=== PATIENT | female | born 1955 | race Hispanic/Latino ===

== ENCOUNTER 2019-12-03 16:49 | Inpatient (IN) | payer BC, OTHER ==
[~2019-12-03] VITALS: Ht 152.4 cm; Wt 102.1 kg
[~2019-12-03 16:49] MED LIST: ALPRAZOLAM0.5 M1 PO; DULERA IH; DYMISTA NASAL S23 GM; LEVOCETIRIZINE D5 MG PO; LEVOTHYROXINE50 MCG PO; MONTELUKAST SOD10 MG PO; NEXIUM40 MG PO; SPIRIVA INH; ULTRAM50 MG PO
[2019-12-03] MEDS ORDERED: SODIUM CHLORIDE 0.9% 1000ML 1,000 ML IV STA (17:07)
[2019-12-03 18:31] LABS: BASOPHILS % 0.2 % (0.0-1.0); HEMATOCRIT 42.4 % (34.2-44.1); HEMOGLOBIN 12.7 g/dL (12.0-16.0); LYMPHOCYTES # (AUTO) 1.6 (1.0-3.2); LYMPHOCYTES % 24.1 % (18.0-39.1); MEAN CORPUSCULAR HEMOGLOBIN 28.7 pg (28-32); MEAN CORPUSCULAR VOLUME 95.9 fL (81-99); MONOCYTES # (AUTO) 0.7 (0.2-0.8); MONOCYTES % 10.5 % (4.4-11.3); NEUTROPHILS # (AUTO) 4.3 (2.1-6.9); NEUTROPHILS % 64.7 % (38.7-80.0); PLATELET COUNT 200 x10e3/uL (140-360); RED BLOOD COUNT 4.42 x10e6/uL (3.6-5.1); RED CELL DISTRIBUTION WIDTH 14.3 % (11.7-14.4)
[2019-12-03 18:52] LABS: ALBUMIN/GLOBULIN RATIO 0.8 (0.8-2.0); ANION GAP 12.4 mmol/L (8-16); CALCIUM 8.4 mg/dL (8.4-10.2); CREATININE, SERUM 1.1 mg/dL (0.57-1.11); POTASSIUM 4.4 mmol/L (3.5-5.1)
[2019-12-03 19:00] LABS: CREATINE KINASE MB 0.6 ng/mL (0-5.0)
[2019-12-03 19:02] LABS: B-TYPE NATRIURETIC PEPTIDE2 39.7 pg/mL (0-100)
--- NOTE | 2019-12-03 19:11 | NUR ---
report given to Gigi BILL
--- NOTE | 2019-12-03 19:13 | Diagnostic Imaging Report ---
EXAMINATION: CHEST SINGLE (PORTABLE) INDICATION: FEVER, COUGH COMPARISON: None FINDINGS: TUBES and LINES: None. LUNGS: Mild prominence of the pulmonary vasculature bilaterally with redistribution. There is patchy airspace disease predominantly in a perihilar distribution and basilar, right greater the left. PLEURA: No pleural effusion or pneumothorax. HEART AND MEDIASTINUM: Cardiac size is moderately enlarged. There are atherosclerotic calcifications within the aorta. BONES AND SOFT TISSUES: No acute osseous lesion. Soft tissues are unremarkable. UPPER ABDOMEN: No free air under the diaphragm. IMPRESSION: Findings suggestive of decompensated CHF with bilateral superimposed infection in this patient's clinical setting. Signed by: Dr. Javi Bhagat M.D. on 12/03/2019 7:09 PM
--- NOTE | 2019-12-03 19:42 | Emergency Department Note ---
History of Present Illnes History of Present Illness Chief Complaint: COVID PUI History of Present Illness This is a 64 year old female SOB, CONFIRMED COVID. FROM CLINIC. AAOX4. AMBULATORY. 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 Arrival Mode: [facility] EMS Treatment PREPRESS TECHNICIAN: See EMS Report Additional Treatment PREPRESS TECHNICIAN: [facility] M29 Cook Vacuum Kettle Required: No Onset (how long ago): day(s) (4) Radiation: Reports non-radiation Severity: moderate Onset quality: gradual Timing of current episode: constant Progression: worsening Chronicity: new Relieving factors: none Exacerbating factors: none Associated symptoms: Reports confusion, Reports fever/chills, Reports malaise, Reports shortness of breath, Reports weakness Treatments prior to arrival: none Past Medical/Family History Physician Review I have reviewed the patient's past medical and family history. Any updates have been documented here. Past Medical History Recent Fever: No Clinical Suspicion of Infectio: No New/Unexplained Change in Ment: No Past Medical History: Hypertension, Hypothyroidism, GERD, Hyperlipedemia Other Medical History: anxiety Other Surgery: unknown history Social History Smoking Cessation: Never Smoker Counseling Performed: No Any Illegal Drug Use: No TB Exposure/Symptoms: No Physically hurt or threatened: No Family History Family history of heart diseas: No Other Any Pre-Existing Lines (PICC,: No Review of Systems Review of Systems Constitutional: Reports as per HPI EENTM: Reports no symptoms Cardiovascular: Reports no symptoms Respiratory: Reports as per HPI Gastrointestinal: Reports no symptoms Genitourinary: Reports no symptoms Musculoskeletal: Reports no symptoms Integumentary: Reports no symptoms Neurological: Reports as per HPI Psychological: Reports no symptoms Endocrine: Reports no symptoms Hematological/Lymphatic: Reports no symptoms Physical Exam Related Data Allergies: Coded Allergies: No Known Allergies (Unverified , 04/05/15) Triage Vital Signs Vital Signs Date Time Temp Pulse Resp B/P (MAP) Pulse Ox O2 Delivery O2 Flow Rate FiO2 12/03/19 17:08 98.7 102 24 98 Non-Rebreather 15.0 Vital signs reviewed: Yes Physical Exam CONSTITUTIONAL Constitutional: Present ill appearing HENT HENT: Present normocephalic, Present atraumatic, Present oropharynx clear/moist, Present nose normal HENT L/R: Present left ext ear normal, Present right ext ear normal EYES Eyes: Reports PERRL, Reports conjunctivae normal NECK Neck: Present ROM normal PULMONARY Pulmonary: Present other (DECR BS'S THROUGHOUT) CARDIOVASCULAR Cardiovascular: Present regular rhythm, Present heart sounds normal, Present capillary refill normal, Present normal rate GASTROINTESTINAL Abdominal: Present soft, Present nontender, Present bowel sounds normal GENITOURINARY Genitourinary: Present exam deferred SKIN Skin: Present warm, Present dry MUSCULOSKELETAL Musculoskeletal: Present ROM normal NEUROLOGICAL Neurological: Present alert, Present no gross motor or sensory deficits, Present other (ORIENTED TO NAME ONLY) PSYCHOLOGICAL Psychological: Present mood/affect normal, Present judgement normal Results Laboratory Result Diagram: 12/03/19180912/03/191809 Laboratory Laboratory Tests Test 12/03/19 18:10 White Blood Count 6.65 x10e3/uL (4.8-10.8) Red Blood Count 4.42 x10e6/uL (3.6-5.1) Hemoglobin 12.7 g/dL (12.0-16.0) Hematocrit 42.4 % (34.2-44.1) Mean Corpuscular Volume 95.9 fL (81-99) Mean Corpuscular Hemoglobin 28.7 pg (28-32) Mean Corpuscular Hemoglobin Concent 30.0 g/dL (31-35) Red Cell Distribution Width 14.3 % (11.7-14.4) Platelet Count 200 x10e3/uL (140-360) Neutrophils (%) (Auto) 64.7 % (38.7-80.0) Lymphocytes (%) (Auto) 24.1 % (18.0-39.1) Monocytes (%) (Auto) 10.5 % (4.4-11.3) Eosinophils (%) (Auto) 0.0 % (0.0-6.0) Basophils (%) (Auto) 0.2 % (0.0-1.0) Neutrophils # (Auto) 4.3 (2.1-6.9) Lymphocytes # (Auto) 1.6 (1.0-3.2) Monocytes # (Auto) 0.7 (0.2-0.8) Eosinophils # (Auto) 0.0 (0.0-0.4) Basophils # (Auto) 0.0 (0.0-0.1) Absolute Immature Granulocyte (auto 0.03 x10e3/uL (0-0.1) Sodium Level 137 mmol/L (136-145) Potassium Level 4.4 mmol/L (3.5-5.1) Chloride Level 99 mmol/L (98-107) Carbon Dioxide Level 30 mmol/L (22-29) Anion Gap 12.4 mmol/L (8-16) Blood Urea Nitrogen 12 mg/dL (7-26) Creatinine 1.10 mg/dL (0.57-1.11) Estimat Glomerular Filtration Rate 50 ML/MIN (60-) BUN/Creatinine Ratio 11 (6-25) Glucose Level 90 mg/dL (74-118) Lactic Acid Level 0.7 mmol/L (0.5-2.0) Calcium Level 8.4 mg/dL (8.4-10.2) Total Bilirubin 0.2 mg/dL (0.2-1.2) Aspartate Amino Transf (AST/SGOT) 32 IU/L (5-34) Alanine Aminotransferase (ALT/SGPT) 22 IU/L (0-55) Alkaline Phosphatase 68 IU/L (40-150) Creatine Kinase 90 IU/L (29-168) Creatine Kinase MB 0.60 ng/mL (0-5.0) Troponin I 0.017 ng/mL (0-0.300) B-Type Natriuretic Peptide 39.7 pg/mL (0-100) Total Protein 6.6 g/dL (6.5-8.1) Albumin 3.0 g/dL (3.5-5.0) Globulin 3.6 g/dL (2.3-3.5) Albumin/Globulin Ratio 0.8 (0.8-2.0) Lab results reviewed: Yes Imaging Imaging results reviewed: Yes Impressions Procedure: [id number] DX/CHEST SINGLE (PORTABLE) Exam Date: 12/03/19 Exam Time: 1415 REPORT STATUS: Signed EXAMINATION: CHEST SINGLE (PORTABLE) INDICATION: FEVER, COUGH COMPARISON: None FINDINGS: TUBES and LINES: None. LUNGS: Mild prominence of the pulmonary vasculature bilaterally with redistribution. There is patchy airspace disease predominantly in a perihilar distribution and basilar, right greater the left. PLEURA: No pleural effusion or pneumothorax. HEART AND MEDIASTINUM: Cardiac size is moderately enlarged. There are atherosclerotic calcifications within the aorta. BONES AND SOFT TISSUES: No acute osseous lesion. Soft tissues are unremarkable. UPPER ABDOMEN: No free air under the diaphragm. IMPRESSION: Findings suggestive of decompensated CHF with bilateral superimposed infection in this patient's clinical setting. Signed by: Dr. Javi Bhagat M.D. on 12/03/2019 7:09 PM Procedures 12 Lead ECG Interpretation ECG Interpretation : ECG: ECG 1 Cook Vacuum Kettle: Interpreted by ED physician Date: Dec 03, 2019 Time: 18:01 Rhythm: sinus rhythm Rate: normal (98) QRS axis: normal Conduction: intraventricular conduction delay ST segments normal: Yes T wave inversion: V1, V2 T waves flattening: III, aVF, V3 Clinical Impression: abnormal ECG ABG Interpretation ABG Results: ABG 1 (pH 7.29, pCO2 61, pO2 100, HCO3 29) Interpretation: respiratory acidosis (ACUTE) Assessment & Plan Medical Decision Making MDM CHECK CBC, CHEM, CARDIACS, BNP, LACTIC, COVID SWAB, CXR - EVAL PNEUMONIA, COVID19, ELECTROLYTE ABNL, CHF. PT MORE CONFUSED - WILL ALSO GET ABG Reassessment Reassessment WILL NEED INTUBATION - DR WILCOX HERE AND WILL INTUBATE, WILL NEED TRANSFER SINCE NO ICU BEDS AVAILABLE HERE - REPORT TO DR TAMMY OCHOA TO TRANSFER Assessment & Plan Final Impression: (1) Pneumonia due to COVID-19 virus (2) Respiratory failure with hypercapnia Last Vital Signs Date Time Temp Pulse Resp B/P (MAP) Pulse Ox O2 Delivery O2 Flow Rate FiO2 12/03/19 19:17 95 30 149/69 100 12/03/19 17:08 98.7 Non-Rebreather 15.0 Home Meds Reported Medications Azelastine/Fluticasone (DYMISTA NASAL SPRAY) 23 Gm [place].pump, NA PRN 04/05/15 Tramadol Hcl (ULTRAM) 50 Mg Tablet, 50 MG PO PRN PRN for PAIN, TAB 04/05/15 Montelukast Sodium (MONTELUKAST SODIUM) 10 Mg Tablet, 10 MG PO DAILY, #30 TAB 04/05/15 Esomeprazole Magnesium (NEXIUM) 40 Mg Capsule.dr, 40 MG PO DAILY PROTONIX THERAPEUTIC SUBSTITUTE FOR NEXIUM PER [facility] 04/05/15 Levocetirizine Dihydrochloride (LEVOCETIRIZINE DIHYDROCHLORIDE) 5 Mg Tablet, 5 MG PO DAILY 04/05/15 Levothyroxine Sodium (LEVOTHYROXINE SODIUM) 50 Mcg Tablet, 50 MCG PO DAILY, #30 TAB 04/05/15 Alprazolam (ALPRAZOLAM) 0.5 Mg Tab.rapdis, 0.5 MG PO HS 04/05/15 [Dulera] No Conflict Check, IH BID 04/05/15 [Spiriva] No Conflict Check, INH DAILY 04/05/15 Medications in the ED Sodium Chloride 1,000 ml @ 0 mls/hr Q0M STAT IV Last administered on 12/03/19at 18:15; Admin Dose 999 MLS/HR; Start 12/03/19 at 17:07; Stop 12/03/19 at 17:09; Status DC REKHA BROOKS MD Dec 03, 2019 19:42
[2019-12-03] MEDS ORDERED: PROPOFOL IV EMULSION 10MG/ML 100 ML ONE (20:07)
[2019-12-03] MEDS: PROPOFOL IV EMULSION 10MG/ML 100 ML IV SCH (20:12)
[2019-12-03] MEDS ORDERED: LIDOCAINE HCL 1% LOCAL INJ 20 ML VIAL ONE (20:28)
[2019-12-03] MEDS ORDERED: CEFTRIAXONE SOD 1 GM/NS 50 ML 50 ML IV SCH (20:30)
[2019-12-03] MEDS ORDERED: SODIUM CHLORIDE 0.9% 1000ML 1,000 ML IV ONE (20:30)
[2019-12-03 20:31] LABS: INR 0.95; PARTIAL THROMBOPLASTIN TIME 33.6 seconds (23.8-35.5); PROTHROMBIN TIME 10.5 seconds (11.9-14.5)
--- NOTE | 2019-12-03 20:42 | Diagnostic Imaging Report ---
EXAMINATION: CHEST SINGLE (PORTABLE) INDICATION: s/p intubation. COVID. COMPARISON: 12/03/2019 at 1827 hours. FINDINGS: TUBES and LINES: Interval placement of an endotracheal tube with distal tip within the right mainstem bronchus. Recommend withdrawing approximately 4 cm. LUNGS: Redemonstration of patchy airspace disease predominantly in a perihilar distribution and basilar, right greater the left which appears somewhat increased in the short interval, possibly due to technical. PLEURA: No pleural effusion or pneumothorax. HEART AND MEDIASTINUM: Cardiac size is moderately enlarged. There are atherosclerotic calcifications within the aorta. BONES AND SOFT TISSUES: No acute osseous lesion. Soft tissues are unremarkable. UPPER ABDOMEN: No free air under the diaphragm. IMPRESSION: Interval placement of an endotracheal tube with distal tip within the right mainstem bronchus. Recommend withdrawing approximately 4 cm. Signed by: Dr. Javi Bhagat M.D. on 12/03/2019 8:39 PM
[2019-12-03] MEDS ORDERED: NOREPINEPHRINE 8 MG/D5W 250 ML 250 ML ONE (20:49)
[2019-12-03] MEDS: NOREPINEPHRINE 8 MG/D5W 250 ML 250 ML IV SCH ×2 (20:50→21:44)
[2019-12-03] MEDS ORDERED: MIDAZOLAM HCL 2 MG/2 ML VIAL ONE (20:58)
[2019-12-03] MEDS ORDERED: DEXAMETHASONE SOD PHOS 10 MG/1 ML VIAL IV SCH (21:00)
[2019-12-03] MEDS ORDERED: AZITHROMYCIN 500MG/NS 250 ML 250 ML IV SCH (21:15)
[2019-12-03] MEDS ORDERED: SUCCINYLCHOLINE 200 MG/10 ML SYR IV STA (21:27)
[2019-12-03] MEDS ORDERED: ETOMIDATE 2 MG/ML 10 ML INJ IV STA (21:27)
[2019-12-03] MEDS ORDERED: MIDAZOLAM HCL 2 MG/2 ML VIAL IV STA ×3 (21:27→21:47)
--- NOTE | 2019-12-03 21:39 | Diagnostic Imaging Report ---
EXAMINATION: CHEST XRAY LINE PLACEMENT INDICATION: ^Y ^Left IJ CVC placement ^[id number] ^[id number] COMPARISON: Chest radiograph 12/03/2019 FINDINGS: AP view TUBES and LINES: Interval placement of a left internal jugular vein central venous catheter. The tip of the catheter projects over the left medial neck, in the expected location of the left internal jugular vein. Endotracheal tube terminates above the bethanie. LUNGS: Unchanged diffuse pulmonary airspace disease, right lung greater than left. PLEURA: No pleural effusion or pneumothorax. HEART AND MEDIASTINUM: The cardiomediastinal silhouette is unchanged. BONES AND SOFT TISSUES: No acute osseous lesion. Soft tissues are unremarkable. UPPER ABDOMEN: No free air under the diaphragm. IMPRESSION: 1. Inappropriate position of the left internal jugular vein central venous catheter. The tip of the catheter is located in the left internal jugular vein. Repositioning of the catheter is recommended. 2. Unchanged diffuse pulmonary airspace disease consistent with known viral pneumonia. Signed by: Iglesia Akhtar MD on 12/03/2019 9:36 PM
--- NOTE | 2019-12-03 21:45 | NUR ---
CONSENT FOR PICC LINE OBTAINED VIA TELEPHONE FROM PTS , DMITRI; VERIFIED WITH Peter COVARRUBIAS LVN
--- NOTE | 2019-12-03 23:20 | Consultation ---
DATE OF CONSULTATION: Pulmonary Critical Care Consultation CHIEF COMPLAINT: COVID-19, asthma, and respiratory failure. HISTORY OF PRESENT ILLNESS: The patient is a 64-year-old woman with a history of asthma. She uses Symbicort at home twice a day as well as Singulair and Nucala injections once a month. She came into the emergency department with worsening fever and dyspnea. She had cough. She also had increased confusion. Her blood gas showed respiratory acidosis with a CO2 of 60 and a pH is 7.29. She also had difficulty breathing, on 100% non-rebreather. She required intubation. PAST MEDICAL HISTORY: 1. History of asthma as noted above. 2. Hypothyroidism. 3. No known cardiac history. PAST SURGICAL HISTORY: Not obtainable. SOCIAL HISTORY: Not obtainable. FAMILY HISTORY: Not obtainable. REVIEW OF SYSTEMS: The patient had increased confusion. There was some fevers. She had cough and difficulty breathing. She did not complain of chest pain. She has no nausea or vomiting. There is no leg edema. PHYSICAL EXAMINATION: VITAL SIGNS: The patient was afebrile. Blood pressure is 150/70, saturation was in the mid 90s and 100% prior to intubation. She is now on a PRVC mode of ventilation with a tidal volume of 400 and respiratory rate of 24. HEENT: She has no facial swelling. LYMPHATIC: Normal. CARDIAC: Reveals regular rate and rhythm with normal S1 and S2. LUNGS: Auscultation of lungs reveals a prolonged expiratory phase. There is no wheezing. There are crackles at the bases. ABDOMEN: Soft and nontender. There is no rebound or guarding. EXTREMITIES: Show no leg edema or calf tenderness. There is no cyanosis or clubbing. SKIN: Shows no rashes. NEUROLOGICAL: Shows no focal abnormalities. LABORATORY DATA: BUN to creatinine ratio is 12 and 1.10. Other electrolytes are within normal limits. Albumin is 3. White blood cell count is 6.65, hemoglobin is 12.7, and platelet count is 200. RADIOGRAPHIC DATA: Chest x-ray shows findings suggestive of CHF with bilateral infiltrates and small pleural effusions. IMPRESSION: 1. Viral pneumonia and coronavirus disease 2019 infection. 2. Asthma. 3. Metabolic encephalopathy. 4. Acute kidney injury. PLAN: 1. IV antibiotics. 2. Solu-Medrol. 3. Lovenox. 4. Continue mechanical ventilation and repeat ABG. 5. Echocardiogram. 6. Bronchodilators. MD CLAUS De La O/MARTITA /[id number]
[2019-12-03 23:27] LABS: ABG HCO3 26 mmol/L (22-26); ABG PCO2 42 mmHg (35-45); ABG PH 7.41 (7.35-7.45); ABG PO2 65 mmHg (80-105)
[2019-12-03 23:32] LABS: ABG PH 7.28 (7.35-7.45)
[2019-12-03 23:33] LABS: ABG HCO3 29 mmol/L (22-26); ABG PCO2 61 mmHg (35-45); ABG PO2 100 mmHg (80-105)
--- NOTE | 2019-12-03 23:45 | Operative Report ---
DATE OF PROCEDURE: SURGEON: Patrick Wren MD PROCEDURE: Endotracheal intubation. PREPROCEDURE DIAGNOSIS: Respiratory failure. POSTPROCEDURE DIAGNOSIS: Respiratory failure. CONSENT: Consent was obtained from the patient. MEDICATIONS: Versed 1 mg, etomidate 20 mg, and succinylcholine 100 mg IV. [employer] EQUIPMENT: Patrick Wren MD. PROCEDURE IN DETAIL: The patient was placed in a supine position. A 3-0 Mac blade was used with a GlideScope to visualize glottis. A 7.5 endotracheal tube was placed through the glottis on the first attempt. There was good CO2 return and equal breath sounds bilaterally. The patient remained hemodynamically stable throughout the procedure. Oxygen saturation remained at 90%. COMPLICATIONS: None. ESTIMATED BLOOD LOSS: None. Patrick Wren MD H/MODL /[id number]
[2019-12-04] VITALS (48 sets, daily range): BP systolic 96–143; BP diastolic 52–97
--- NOTE | 2019-12-04 00:02 | Diagnostic Imaging Report ---
EXAMINATION: CHEST XRAY LINE PLACEMENT INDICATION: ^Y ^picc line placement COMPARISON: None FINDINGS: AP view TUBES and LINES: Interval placement of a right upper extremity PICC. The tip projects over the expected location of the superior vena cava. Unchanged left neck central line. Unchanged endotracheal tube. LUNGS: Unchanged diffuse pulmonary airspace disease. PLEURA: No pleural effusion or pneumothorax. HEART AND MEDIASTINUM: The cardiomediastinal silhouette is unchanged. BONES AND SOFT TISSUES: No acute osseous lesion. Soft tissues are unremarkable. UPPER ABDOMEN: No free air under the diaphragm. IMPRESSION: 1. Interval placement of a right upper extremity PICC. The tip projects over the SVC. 2. Persistent left neck central venous catheter with tip projecting over the expected location of the left internal jugular vein. Repositioning or removal is again recommended. 3. Unchanged diffuse pulmonary airspace disease consistent with viral pneumonia. Signed by: Iglesia Akhtar MD on 12/03/2019 11:59 PM
[2019-12-04] MEDS ORDERED: SODIUM CHLORIDE 0.9% 1000ML 1,000 ML ONE (01:38)
[2019-12-04] MEDS: ENOXAPARIN SOD INJ 40 MG/0.4 ML SYR SC SCH ×3 (01:45→21:15)
[2019-12-04] MEDS: PROPOFOL IV EMULSION 10MG/ML 100 ML IV SCH ×4 (01:46→14:30)
[2019-12-04] MEDS: NOREPINEPHRINE 8 MG/D5W 250 ML 250 ML IV SCH (01:47)
[2019-12-04] MEDS ORDERED: LEVOTHYROXINE SODIUM 50 MCG TAB PO SCH (06:00)
--- NOTE | 2019-12-04 07:12 | NUR ---
walking rounds with hetal bermudez
--- NOTE | 2019-12-04 07:32 | Progress Note ---
DATE: Pulmonary Critical Care Progress Note SUBJECTIVE: The patient is intubated yesterday and is now on a mechanical ventilator. She is on a PRVC at a rate of 24 with tidal volume of 400. Her FiO2 is set at 75% and PEEP is set at 15. She has a peak airway pressure 35 and a mean airway pressure of 20. Her Levophed is weaned down to 10 mcg. She is urinating. PHYSICAL EXAMINATION: VITAL SIGNS: The blood pressure is 129/75, saturation is 96%. The pulse is 72. HEENT: Shows no facial swelling or erythema. There is an oral endotracheal tube in place. The patient has a PICC line in place. CARDIAC: Reveals regular rate and rhythm with normal S1, S2. LUNGS: Auscultation of lungs reveals a prolonged expiratory phase bilaterally. There is no wheezing. ABDOMEN: Soft and nontender. There is no rebound or guarding. EXTREMITIES: Shows no leg edema or calf tenderness. There is no cyanosis or clubbing. SKIN: Shows no rashes. NEUROLOGICAL: Shows no focal abnormalities. LABORATORY DATA: White blood cell count is 6.65. The BUN to creatinine ratio is 12 to 1.1. RADIOGRAPHIC DATA: Chest x-ray shows bilateral infiltrates. IMPRESSION: 1. Acute respiratory failure. 2. COVID-19 infection and viral pneumonia. 3. Asthma with acute exacerbation. 4. Acute kidney injury. 5. Metabolic encephalopathy. PLAN: 1. Continue IV steroids and antibiotics. 2. Lovenox. 3. Repeat ABG. 4. Await echocardiogram. 5. Lovenox for DVT prophylaxis. 6. Wean Levophed. 7. Case discussed with nursing staff, Respiratory, emergency department physician, administration, and . Greater than 35 minutes in critical care time apart from any procedures performed. Patrick Wren MD LM/LIANEL /[id number]
[2019-12-04] MEDS ORDERED: PANTOPRAZOLE SOD 40 MG TABEC PO SCH (09:00)
[2019-12-04] MEDS ORDERED: MONTELUKAST SODIUM 10 MG TAB PO SCH (09:00)
[2019-12-04] MEDS ORDERED: DEXAMETHASONE PHOS 4MG/ML 5ML MULTIDOSE VIAL IV SCH (10:15)
[2019-12-04] MEDS ORDERED: ONDANSETRON HCL INJ 2MG/ML 2ML 2 MG/ML VIAL IV PRN (12:00)
[2019-12-04] MEDS ORDERED: HYDRALAZINE HCL 20 MG/ML VIAL IV PRN (12:00)
[2019-12-04 12:08] LABS: HEMATOCRIT 41.1 % (34.2-44.1); LYMPHOCYTES # (AUTO) 0.9 (1.0-3.2); LYMPHOCYTES % 18.4 % (18.0-39.1); MEAN CORPUSCULAR HEMOGLOBIN 28.9 pg (28-32); MEAN CORPUSCULAR HGB CONC 31.6 g/dL (31-35); MEAN CORPUSCULAR VOLUME 91.3 fL (81-99); MONOCYTES # (AUTO) 0.3 (0.2-0.8); MONOCYTES % 5.3 % (4.4-11.3); NEUTROPHILS # (AUTO) 3.8 (2.1-6.9); NEUTROPHILS % 75.7 % (38.7-80.0); PLATELET COUNT 214 x10e3/uL (140-360); RED CELL DISTRIBUTION WIDTH 13.8 % (11.7-14.4)
[2019-12-04 12:30] LABS: ALBUMIN 2.7 g/dL (3.5-5.0); ALBUMIN/GLOBULIN RATIO 0.8 (0.8-2.0); ANION GAP 17.8 mmol/L (8-16); CALCIUM 7.8 mg/dL (8.4-10.2); CREATININE, SERUM 1.12 mg/dL (0.57-1.11); POTASSIUM 3.8 mmol/L (3.5-5.1)
--- NOTE | 2019-12-04 14:46 | NUR ---
levophed titrated down and currentlyat 2mcg/min maintaining sbp>90
[2019-12-04] MEDS ORDERED: MIDAZOLAM HCL 2 MG/2 ML VIAL ONE ×2 (14:53→20:22)
[2019-12-04] MEDS ORDERED: WATER STERILE 10 ML VIAL ONE (14:53)
[2019-12-04] MEDS ORDERED: ETOMIDATE 2 MG/ML 10 ML INJ IV ONE ×2 (14:53→20:22)
[2019-12-04] MEDS ORDERED: VECURONIUM BROMIDE FOR INJ 20 MG VIAL ONE (14:53)
[2019-12-04] MEDS ORDERED: SUCCINYLCHOLINE CHLORIDE 20 MG/ML 10ML VIAL ONE ×2 (14:53→20:22)
[2019-12-04 15:20] LABS: CHOL/HDL RATIO 4.3 (3.0-3.6)
[2019-12-04] MEDS ORDERED: PROPOFOL IV EMULSION 10MG/ML 100 ML IV SCH (16:15)
[2019-12-04] MEDS ORDERED: NOREPINEPHRINE 8 MG/D5W 250 ML 250 ML IV SCH (16:15)
[2019-12-04] MEDS: FAMOTIDINE 20 MG/2 ML VIAL IV SCH (17:00)
[2019-12-04] MEDS ORDERED: REMDESIVIR 200MG/NS 100ML 200 MG IV ONE (18:00)
[2019-12-04 19:33] LABS: ABG HCO3 21 mmol/L (22-26); ABG PCO2 30 mmHg (35-45); ABG PH 7.46 (7.35-7.45); ABG PO2 91 mmHg (80-105)
[2019-12-04] MEDS: PROPOFOL IV EMULSION 10MG/ML 50 ML IV PRN (20:15)
[2019-12-04] MEDS ORDERED: DEXAMETHASONE SOD PHOS 10 MG/1 ML VIAL IV SCH (21:00)
--- NOTE | 2019-12-04 21:06 | Consultation ---
DATE OF CONSULTATION: Cardiology Consult. HISTORY OF PRESENT ILLNESS: A 64-year-old female with primary history of hypothyroidism, asthma, GERD, anxiety, obesity, admitted complaining of shortness of breath, found to be positive with coronavirus disease 2019 infection. Per medical records, the patient complaining of worsening dyspnea accompanied with cough and fever with some confusion. She was found to have respiratory acidosis and with acute respiratory distress requiring immediate intubation. PAST MEDICAL HISTORY: As mentioned above, hypothyroidism, asthma, GERD, anxiety, obesity. PAST SURGICAL HISTORY: Unable to obtain. The patient is intubated. SOCIAL HISTORY: Unable to obtain. FAMILY HISTORY: Unable to obtain. PHYSICAL EXAMINATION: VITAL SIGNS: Blood pressure 121/65, heart rate of 54, respiratory rate of 23, pulse oximetry 100% on mechanical ventilator. GENERAL APPEARANCE: The patient is well developed, well nourished, in no acute respiratory distress. HEENT: Head is normocephalic, atraumatic. Pupils are equally round and reactive to light and accommodation. Sclerae nonicteric. Ears are normal. Throat is clear. NECK: Supple. Full range of motion. No cervical lymphadenopathy. No thyromegaly. No JVD. SKIN: Warm and dry. No suspicious lesion. CV: Sinus bradycardia on telemetry, S1 and S2 are normal. No murmur heard on auscultation. LUNGS: Auscultation of lungs reveals prolonged expiratory phase. There is no wheezing, but there are few crackles at the bases. ABDOMEN: Soft, obese, nondistended. Bowel sounds are present. EXTREMITIES: There is no clubbing, no cyanosis, or edema. NEUROLOGIC: The patient is currently sedated. LABORATORY DATA: BUN and creatinine ratio are 12 and 1.10. Electrolytes are within normal limits. White count is 6.65, platelets 200. Lactic acid is 0.7. RADIOGRAPHIC DATA: Chest x-ray showed finding suggestive of CHF and bilateral infiltrates and some pleural effusions. IMPRESSION AND PLAN: The patient is a 64-year-old admitted with EKG and cardiac enzymes not suggestive of any ischemia. Cardiology is consulted to evaluate. 1. Monitor Coumadin and continue telemetry monitoring. 2. Echocardiogram to evaluate valve and LV function. 3. Diurese as needed and continue to evaluate and assess for any signs of significant volume overload with pulmonary and peripheral congestion. 4. Continue medical management for active viral pneumonia and coronavirus disease 2019 infection. 5. Further recommendation will follow according to the patient's clinical course. Thank you for this consultation. We will continue to follow. Dictated by Zena Sheridan, MONOGRAM TECHNICIAN MD LINDA Sanchez/MARTITA /[id number]
[2019-12-04] MEDS: DEXAMETHASONE PHOS 4MG/ML 5ML MULTIDOSE VIAL IV SCH (21:15)
[2019-12-04] MEDS: PROPOFOL IV EMULSION 10MG/ML 100 ML IV PRN (22:30)
--- NOTE | 2019-12-04 22:46 | Consultation ---
HISTORY OF PRESENT ILLNESS: Ms. Cook is a 64-year-old female, who has history of diabetes mellitus. She was sick Sunday and she was concerned because her family had tested positive for COVID, so she wanted to be tested. She was told it was negative, but Sunday started to get worse and then she came yesterday to the emergency room here at the [facility], which is about 5 days. The patient comes in with shortness of breath. Her COVID was positive. The patient is being admitted. I am asked to see her. She is currently on a ventilator. She is currently on the Intensive Care Unit, is currently intubated, sedated. I was able to discuss the case with her son, who put me on a speaker phone, discussed with her . They are aware of how sick she is and we also discussed the possibility of Remdesivir and also talked about it. I asked them to go online and look at fact statement about it, since I am really concerned to give it to her. They both agreed. The patient is currently intubated and sedated. MEDICATIONS: List reviewed. LABORATORY DATA: Reviewed. Her sodium 137, potassium 4.4. Her creatinine 1.10, glucose of 90, went up to 162. White count 6.5, hemoglobin of 4.5. PHYSICAL EXAMINATION: GENERAL: She is currently intubated and sedated. VITAL SIGNS: Stable. Heart rate 52, respirations 24, blood pressure 100/71, 100. HEENT: Not icteric. NECK: Supple. CHEST: Crackles bilateral. HEART: S1 and S2. ABDOMEN: Soft. IMPRESSION AND PLAN: 1. Sepsis, on admission. 2. Respiratory failure, on admission. 3. Coronavirus disease-2019, on admission, concerned about superimposed bacterial pneumonia. She is on respiratory support on the ventilator, from Infectious Disease point of view. Dexamethasone 6 mg IV daily for 10 days, Rocephin 1 g daily for 5 days, azithromycin 500 mg p.o. daily for 3 days, Lovenox 0.5 mg/kg 40 subcu q.12. I discussed with the family, we will start Remdesivir 200 mg IV piggyback now and then 100 daily. Discussed with the pharmacy. Discussed with Critical Care. We will follow. Zaher Shebib, MD ZS/MARTITA /[id number]
[2019-12-05] VITALS (12 sets, daily range): BP systolic 91–120; BP diastolic 37–74
[2019-12-05] MEDS: CEFTRIAXONE SOD 1 GM/NS 50 ML 50 ML IV SCH
[2019-12-05] MEDS: PROPOFOL IV EMULSION 10MG/ML 100 ML IV PRN ×4 (01:25→23:00)
[2019-12-05] MEDS: AZITHROMYCIN 500MG/NS 250 ML 250 ML IV SCH (02:45)
[2019-12-05] MEDS: LEVOTHYROXINE SODIUM 50 MCG TAB PO SCH (06:40)
[2019-12-05 07:15] LABS: HEMATOCRIT 40.4 % (34.2-44.1); LYMPHOCYTES # (AUTO) 0.8 (1.0-3.2); LYMPHOCYTES % 9.9 % (18.0-39.1); MEAN CORPUSCULAR HEMOGLOBIN 29.2 pg (28-32); MEAN CORPUSCULAR HGB CONC 32.2 g/dL (31-35); MEAN CORPUSCULAR VOLUME 90.8 fL (81-99); MONOCYTES # (AUTO) 0.5 (0.2-0.8); MONOCYTES % 6.5 % (4.4-11.3); NEUTROPHILS # (AUTO) 6.4 (2.1-6.9); NEUTROPHILS % 83.1 % (38.7-80.0); PLATELET COUNT 229 x10e3/uL (140-360); RED BLOOD COUNT 4.45 x10e6/uL (3.6-5.1); RED CELL DISTRIBUTION WIDTH 13.5 % (11.7-14.4)
[2019-12-05 07:33] LABS: ALANINE AMINOTRANSFERASE 20 IU/L (0-55); ALBUMIN 2.5 g/dL (3.5-5.0); ALBUMIN/GLOBULIN RATIO 0.7 (0.8-2.0); ALKALINE PHOSPHATASE 55 IU/L (40-150); ANION GAP 12.9 mmol/L (8-16); BLOOD UREA NITROGEN 13 mg/dL (7-26); BUN/CREATININE RATIO 15 (6-25); CALCIUM 7.9 mg/dL (8.4-10.2); CARBON DIOXIDE 24 mmol/L (22-29); CHLORIDE 109 mmol/L (98-107); CREATININE, SERUM 0.89 mg/dL (0.57-1.11); EST GLOMERULAR FILTRATION RATE > 60 ML/MIN (60-); GLUCOSE 124 mg/dL (74-118); POTASSIUM 3.9 mmol/L (3.5-5.1); SODIUM 142 mmol/L (136-145)
--- NOTE | 2019-12-05 08:53 | Progress Note ---
DATE: Pulmonary Critical Care Progress Note SUBJECTIVE: The patient was placed in the prone position last night. Now, she is in a supine position again. Her oxygenation has improved and she is down to 50% FiO2. Her PEEP is decreased to 10 and her respiratory rate is 20 with a tidal volume of 400. Her plateau pressure is 23. Her peak airway pressure is 28. She was weaned off the Levophed early this morning. She remains on propofol. PHYSICAL EXAMINATION: VITAL SIGNS: Saturation is 96% on the above settings. Her blood pressure is 118/74 and her pulse is now 66. HEENT: Shows no facial swelling or erythema. The oropharynx is normal. LYMPHATIC: Shows no submandibular, cervical, or supraclavicular adenopathy. There is a PICC line in place. CARDIAC: Reveals regular rate and rhythm with normal S1, S2. LUNGS: Auscultation of lungs reveals crackles at the bases. There is no wheezing. ABDOMEN: Soft and nontender. There is no rebound or guarding. EXTREMITIES: Shows no leg edema or calf tenderness. There is no cyanosis or clubbing. SKIN: Shows no rashes. NEUROLOGICAL: Shows no focal abnormalities. She awakes when the propofol had stopped. LABORATORY DATA: The JQR-xb-qxcospghqk ratio is 13 to 0.89. Other electrolytes are within normal limits. Albumin is 2.5. White blood cell count is 7.7 and hemoglobin is 13. The platelet count is 229. IMPRESSION: 1. Acute respiratory failure. 2. Viral pneumonia and COVID-19 infection. 3. Asthma with acute exacerbation. 4. Metabolic encephalopathy. 5. Acute kidney injury. 6. Diastolic heart failure of unclear duration. PLAN: 1. Repeat ABG and continue to wean ventilator. 2. Complete remdesivir. 3. Continue intermittent Lasix for diuresis. 4. Decadron. 5. Propofol for sedation. 6. Enteral feedings. 7. Lovenox at 40 mg subcu q.12h. 8. Case discussed with nursing staff, Respiratory, Cardiology, and Infectious Disease. Case also discussed with family. Greater than 35 minutes in direct critical care time. Patrick Wren MD LM/MARTITA /[id number]
[2019-12-05] MEDS ORDERED: FUROSEMIDE INJ 10 MG/ML 4 ML VIAL IV SCH (09:00)
[2019-12-05 11:07] LABS: ABG PCO2 36 mmHg (35-45); ABG PH 7.43 (7.35-7.45); ABG PO2 73 mmHg (80-105)
[2019-12-05 11:08] LABS: ABG HCO3 24 mmol/L (22-26)
[2019-12-05] MEDS ORDERED: PROPOFOL IV EMULSION 10MG/ML 100ML BTL ONE (12:00)
[2019-12-05] MEDS ORDERED: MONTELUKAST SODIUM 10 MG TAB ONE (13:23)
[2019-12-05] MEDS ORDERED: PANTOPRAZOLE SOD 40 MG TABEC ONE (13:23)
[2019-12-05] MEDS ORDERED: HYDRALAZINE HCL 20 MG/ML VIAL ONE (13:23)
[2019-12-05] MEDS ORDERED: FAMOTIDINE 20 MG/2 ML VIAL IV ONE (13:23)
[2019-12-05] MEDS ORDERED: ACETAMINOPHEN 325 MG TAB ONE (13:23)
[2019-12-05] MEDS ORDERED: ZINC SULFATE 220 MG CAP ONE (13:23)
[2019-12-05] MEDS ORDERED: ASCORBIC ACID 500 MG TAB ONE (13:23)
[2019-12-05] MEDS ORDERED: ENOXAPARIN SOD INJ 40 MG/0.4 ML SYR SC ONE (13:23)
[2019-12-05] MEDS ORDERED: FUROSEMIDE INJ 10 MG/ML 2 ML VIAL ONE (13:23)
[2019-12-05] MEDS ORDERED: LEVOTHYROXINE SODIUM 50 MCG TAB ONE (13:23)
[2019-12-05] MEDS: MONTELUKAST SODIUM 10 MG TAB PO SCH (13:42)
[2019-12-05] MEDS: PANTOPRAZOLE SOD 40 MG TABEC PO SCH (13:42)
[2019-12-05] MEDS: FAMOTIDINE 20 MG/2 ML VIAL IV SCH ×2 (13:42→17:00)
[2019-12-05] MEDS: FUROSEMIDE INJ 10 MG/ML 2 ML VIAL IV SCH (13:42)
[2019-12-05] MEDS: ENOXAPARIN SOD INJ 40 MG/0.4 ML SYR SC SCH ×2 (13:42→21:00)
--- NOTE | 2019-12-05 15:46 | NUR ---
PROGRESS The patient was placed in the prone position last night. Now, she is in a supine position again. Her oxygenation has improved and she is down to 50% FiO2. Her PEEP is decreased to 10 and her respiratory rate is 20 with a tidal volume of 400. Her plateau pressure is 23. Her peak airway pressure is 28. She was weaned off the Levophed early this morning. She remains on propofol. PHYSICAL EXAMINATION: VITAL SIGNS: Saturation is 96% on the above settings. Her blood pressure is 118/74 and her pulse is now 66. HEENT: Shows no facial swelling or erythema. The oropharynx is normal. LYMPHATIC: Shows no submandibular, cervical, or supraclavicular adenopathy. There is a PICC line in place. CARDIAC: Reveals regular rate and rhythm with normal S1, S2. LUNGS: Auscultation of lungs reveals crackles at the bases. There is no wheezing. ABDOMEN: Soft and nontender. There is no rebound or guarding. EXTREMITIES: Shows no leg edema or calf tenderness. There is no cyanosis or clubbing. SKIN: Shows no rashes. NEUROLOGICAL: Shows no focal abnormalities. She awakes when the propofol had stopped. LABORATORY DATA: The RRR-tk-egfnwfejbq ratio is 13 to 0.89. Other electrolytes are within normal limits. Albumin is 2.5. White blood cell count is 7.7 and hemoglobin is 13. The platelet count is 229. IMPRESSION: 1. Acute respiratory failure. 2. Viral pneumonia and COVID-19 infection. 3. Asthma with acute exacerbation. 4. Metabolic encephalopathy. 5. Acute kidney injury. 6. Diastolic heart failure of unclear duration. continue as ordered discussed with the medical team Please refer to orders 1 lab reviewed Time spent 35 minutes in critical care
[2019-12-05] MEDS: REMDESIVIR 100MG/NS 100ML 100 MG IV SCH (16:00)
--- NOTE | 2019-12-05 16:40 | NUR ---
Nutrition Intervention Note RD Recommendation(s) for Physician: -Recommend modifying formula to Vital High Protein @ goal rate of 35 mL/hr due to propofol dose (provides 840 kcal, 74 g protein) -Pt is receiving additional 985 kcal from propofol -Fluid management per MD Plan of Care: RD following, monitoring for tolerance and adequacy, tube feed recommendation Nutrition reason for involvement: Nutrition Risk Trigger (MST 2) and enteral nutrition RD Assessment (12/05/19) Pt is a 64 year old female admitted with acute respiratory failure. Pt is COVID+ and is currently intubated. Pt currently has an order for tube feeding. Pt is receiving propofol at 37.3 mL/hr per documentation which provides 985 kcal. Unable to obtain nutrition history at this time. Recommendations provided. Will continue to monitor. Principal Problems/Diagnoses: acute respiratory failure PMH: asthma, hypothyroid I/O: GI: soft, non-tender abdomen Skin: intact Labs: (12/04) Na 142, K 3.9, BUN 13, Cr 0.89, Glu 124, Ca 7.9, AST 36 Meds: protonix, lovenox, lasix, pepcid, propofol (37.3 mL/hr), vitamin C, zinc sulfate, norepinephrine, zofran Ht: 60 inches Wt: 228 lbs BMI: 44.5 kg/m2 IBW: 100 lbs Malnutrition Evaluation (12/05/19) Unable to assess. Will re-evaluate at follow-up as appropriate. Nutrition Prescription (Diet Order): Glucerna 1.2 @ 50 mL/hr (provides 1440 kcal, 72 g protein) Estimated Nutritional Needs: 8309-4854 calories/day (22-25 kcal/kg IBW) 68-90 g protein/day (1.5-2 g pro/kg IBW) Diet Adequacy: Meeting calorie needs, Meeting protein needs with tube feed order Tolerance: Tolerance pending Diet Education Needs Assessment: Diet education not indicated, pt is intubated Nutrition Care Level: high Nutrition Diagnosis: Inadequate oral intake related to acute respiratory failure/mechanical ventilation as evidenced by pt requiring enteral nutrition Goal: Patient will meet 75-100% of estimated needs by follow up Progress: N/A Interventions: -Composition, Rate, Route, Recommended Modifications Monitoring/Evaluation: -Total energy intake, Total protein intake, Formula/Solution, Prescription medication, Weight change Signed: Corinna Aviles RD, LD
[2019-12-05] MEDS: DEXAMETHASONE PHOS 4MG/ML 5ML MULTIDOSE VIAL IV SCH (21:00)
[2019-12-06] VITALS (11 sets, daily range): BP systolic 76–107; BP diastolic 43–67
[2019-12-06] MEDS: CEFTRIAXONE SOD 1 GM/NS 50 ML 50 ML IV SCH (00:30)
[2019-12-06] MEDS: AZITHROMYCIN 500MG/NS 250 ML 250 ML IV SCH (02:00)
[2019-12-06] MEDS: PROPOFOL IV EMULSION 10MG/ML 100 ML IV PRN (05:55)
[2019-12-06] MEDS: LEVOTHYROXINE SODIUM 50 MCG TAB PO SCH (06:05)
[2019-12-06 06:16] LABS: HEMATOCRIT 39.4 % (34.2-44.1); HEMOGLOBIN 12.7 g/dL (12.0-16.0); MEAN CORPUSCULAR VOLUME 89.1 fL (81-99); RED BLOOD COUNT 4.42 x10e6/uL (3.6-5.1)
[2019-12-06 06:17] LABS: BASOPHILS % 0.2 % (0.0-1.0); LYMPHOCYTES # (AUTO) 0.6 (1.0-3.2); LYMPHOCYTES % 8.5 % (18.0-39.1); MEAN CORPUSCULAR HEMOGLOBIN 28.7 pg (28-32); MEAN CORPUSCULAR HGB CONC 32.2 g/dL (31-35); MONOCYTES # (AUTO) 0.6 (0.2-0.8); MONOCYTES % 9.4 % (4.4-11.3); NEUTROPHILS # (AUTO) 5.3 (2.1-6.9); NEUTROPHILS % 81.1 % (38.7-80.0); PLATELET COUNT 244 x10e3/uL (140-360); RED CELL DISTRIBUTION WIDTH 13.7 % (11.7-14.4)
[2019-12-06 06:51] LABS: ALANINE AMINOTRANSFERASE 17 IU/L (0-55); ALBUMIN 2.4 g/dL (3.5-5.0); ALBUMIN/GLOBULIN RATIO 0.6 (0.8-2.0); ALKALINE PHOSPHATASE 54 IU/L (40-150); ANION GAP 13.2 mmol/L (8-16); BLOOD UREA NITROGEN 18 mg/dL (7-26); BUN/CREATININE RATIO 20 (6-25); CALCIUM 7.7 mg/dL (8.4-10.2); CARBON DIOXIDE 26 mmol/L (22-29); CHLORIDE 107 mmol/L (98-107); CREATININE, SERUM 0.89 mg/dL (0.57-1.11); EST GLOMERULAR FILTRATION RATE > 60 ML/MIN (60-); GLUCOSE 109 mg/dL (74-118); POTASSIUM 4.2 mmol/L (3.5-5.1); SODIUM 142 mmol/L (136-145)
--- NOTE | 2019-12-06 07:06 | Diagnostic Imaging Report ---
EXAMINATION: CHEST SINGLE (PORTABLE) INDICATION: ^resp failure COMPARISON: 12/03/2019 FINDINGS: AP view TUBES and LINES: Interval removal of the previously seen left IJ central line. Unchanged endotracheal tube and right approach PICC. Interval placement of a nasogastric tube. LUNGS: Unchanged pulmonary airspace disease. PLEURA: No pleural effusion or pneumothorax. HEART AND MEDIASTINUM: Stable mild cardiomegaly. BONES AND SOFT TISSUES: No acute osseous lesion. Soft tissues are unremarkable. UPPER ABDOMEN: No free air under the diaphragm. IMPRESSION: Unchanged pulmonary airspace disease again suggestive of viral pneumonia. Signed by: Iglesia Akhtar MD on 12/06/2019 7:02 AM
[2019-12-06] MEDS: PANTOPRAZOLE SOD 40 MG TABEC PO SCH (07:30)
[2019-12-06] MEDS ORDERED: ASCORBIC ACID 500 MG TAB NG SCH (09:00)
--- NOTE | 2019-12-06 09:17 | Progress Note ---
DATE: Pulmonary Critical Care Progress Note SUBJECTIVE: The patient was placed on a pressure support of 8 and CPAP of 5 this morning. She is breathing about 25-28 times a minute with tidal volumes of 300 mL. She is awaiting repeat blood gas. She is not having fevers. She was receiving enteral feedings and they are now on hold. She is off pressors. She was on Diprivan up until early this morning and this has been held. PHYSICAL EXAMINATION: VITAL SIGNS: The blood pressure is 99/56, saturation is 96% on the above settings. Her pulse is 85 and respiratory rate is 28. HEENT: An oral endotracheal tube. There is a PICC line in place. She has a nasogastric tube. CARDIAC: Regular rate and rhythm with normal S1, S2. LUNGS: Auscultation of lungs reveals crackles at the bases. There is no wheezing. ABDOMEN: Soft, nontender. There is no rebound or guarding. EXTREMITIES: No leg edema or calf tenderness. There is no cyanosis or clubbing. NEUROLOGICAL: The patient to be arousable when the sedation is stopped. LABORATORY DATA: The BUN to creatinine ratio is 18 to 0.89. Other electrolytes are within normal limits. Albumin is 2.4. The white blood cell count is 6.5 and hemoglobin is 12.7. The platelet count is 244,000. RADIOGRAPHIC DATA: Chest x-ray shows bilateral airspace disease. IMPRESSION: 1. Acute respiratory failure. 2. Viral pneumonia and coronavirus disease-19 infection. 3. Asthma with acute exacerbation. 4. Metabolic encephalopathy. 5. Acute kidney injury. PLAN: 1. Repeat ABG and work towards extubation as tolerated. 2. Complete remdesivir. 3. Continue Decadron. 4. Bronchodilators to inhaler. 5. Continue enteral feedings. 6. Continue Lovenox. Plan discussed with Respiratory, nursing, Internal Medicine, and administration. Greater than 35 minutes in direct critical care time apart from any procedures performed. Patrick Wren MD [facility]/MODL /[id number]
[2019-12-06 09:34] LABS: ABG HCO3 29 mmol/L (22-26); ABG PCO2 37 mmHg (35-45); ABG PH 7.47 (7.35-7.45); ABG PO2 63 mmHg (80-105)
[2019-12-06] MEDS: MONTELUKAST SODIUM 10 MG TAB PO SCH (10:16)
[2019-12-06] MEDS: ENOXAPARIN SOD INJ 40 MG/0.4 ML SYR SC SCH ×2 (10:16→20:39)
[2019-12-06] MEDS: ZINC SULFATE 220 MG CAP NG SCH (10:16)
[2019-12-06] MEDS: FUROSEMIDE INJ 10 MG/ML 2 ML VIAL IV SCH (10:16)
[2019-12-06] MEDS: FAMOTIDINE 20 MG/2 ML VIAL IV SCH ×2 (10:34→19:02)
[2019-12-06] MEDS: ALBUTEROL SULFATE HFA 8GM INHALATION AEROSOL INH SCH ×2 (10:49→15:00)
[2019-12-06] MEDS: ASCORBIC ACID 500 MG TAB NG SCH (19:02)
[2019-12-06] MEDS: REMDESIVIR 100MG/NS 100ML 100 MG IV SCH (19:02)
[2019-12-06] MEDS: DEXAMETHASONE PHOS 4MG/ML 5ML MULTIDOSE VIAL IV SCH (20:39)
[2019-12-06] MEDS: NOREPINEPHRINE 8 MG/D5W 250 ML 250 ML IV PRN (22:30)
[2019-12-07] VITALS (18 sets, daily range): BP systolic 96–158; BP diastolic 33–87
[2019-12-07] MEDS: CEFTRIAXONE SOD 1 GM/NS 50 ML 50 ML IV SCH ×2 (00:48→23:40)
[2019-12-07] MEDS: PROPOFOL IV EMULSION 10MG/ML 50 ML IV PRN (01:24)
[2019-12-07] MEDS: AZITHROMYCIN 500MG/NS 250 ML 250 ML IV SCH (02:15)
[2019-12-07] MEDS: LEVOTHYROXINE SODIUM 50 MCG TAB PO SCH (05:04)
--- NOTE | 2019-12-07 06:03 | Diagnostic Imaging Report ---
EXAMINATION: CHEST SINGLE (PORTABLE) INDICATION: ^resp failure COMPARISON: 12/06/2019 FINDINGS: AP view TUBES and LINES: Unchanged endotracheal tube, right PICC, and nasogastric tube. LUNGS: Interval increase in patchy pulmonary airspace disease, notably in the right lung base. PLEURA: No pleural effusion or pneumothorax. HEART AND MEDIASTINUM: The cardiomediastinal silhouette is unchanged. BONES AND SOFT TISSUES: No acute osseous lesion. Soft tissues are unremarkable. UPPER ABDOMEN: No free air under the diaphragm. IMPRESSION: Interval increase in patchy pulmonary airspace disease, notably in the right lung base. Signed by: Iglesia Akhtar MD on 12/07/2019 6:00 AM
[2019-12-07 06:31] LABS: BASOPHILS % 0.1 % (0.0-1.0); HEMOGLOBIN 13.2 g/dL (12.0-16.0); LYMPHOCYTES % 12.7 % (18.0-39.1); MEAN CORPUSCULAR HEMOGLOBIN 28.9 pg (28-32); MEAN CORPUSCULAR HGB CONC 31.4 g/dL (31-35); MEAN CORPUSCULAR VOLUME 91.9 fL (81-99); MONOCYTES # (AUTO) 0.9 (0.2-0.8); PLATELET COUNT 294 x10e3/uL (140-360); RED BLOOD COUNT 4.57 x10e6/uL (3.6-5.1)
[2019-12-07] MEDS: ALBUTEROL SULFATE HFA 8GM INHALATION AEROSOL INH SCH ×5 (07:00→23:00)
[2019-12-07 07:06] LABS: ALANINE AMINOTRANSFERASE 23 IU/L (0-55); ALBUMIN 2.6 g/dL (3.5-5.0); ALBUMIN/GLOBULIN RATIO 0.7 (0.8-2.0); ALKALINE PHOSPHATASE 60 IU/L (40-150); ANION GAP 14.1 mmol/L (8-16); CALCIUM 7.8 mg/dL (8.4-10.2); CARBON DIOXIDE 27 mmol/L (22-29); CHLORIDE 107 mmol/L (98-107); CREATININE, SERUM 0.83 mg/dL (0.57-1.11); EST GLOMERULAR FILTRATION RATE > 60 ML/MIN (60-); GLUCOSE 155 mg/dL (74-118); POTASSIUM 4.1 mmol/L (3.5-5.1); SODIUM 144 mmol/L (136-145)
[2019-12-07 07:19] LABS: BLOOD UREA NITROGEN 25 mg/dL (7-26); BUN/CREATININE RATIO 30 (6-25)
[2019-12-07] MEDS: PANTOPRAZOLE SOD 40 MG TABEC PO SCH (07:30)
[2019-12-07 09:59] LABS: ABG PH 7.41 (7.35-7.45)
[2019-12-07 10:00] LABS: ABG HCO3 28 mmol/L (22-26); ABG PCO2 44 mmHg (35-45); ABG PO2 57 mmHg (80-105)
[2019-12-07] MEDS: MONTELUKAST SODIUM 10 MG TAB PO SCH (10:30)
[2019-12-07] MEDS: FUROSEMIDE INJ 10 MG/ML 2 ML VIAL IV SCH (10:30)
[2019-12-07] MEDS: ASCORBIC ACID 500 MG TAB NG SCH ×2 (10:30→18:24)
[2019-12-07] MEDS: ENOXAPARIN SOD INJ 40 MG/0.4 ML SYR SC SCH ×2 (10:30→20:24)
[2019-12-07] MEDS: FAMOTIDINE 20 MG/2 ML VIAL IV SCH ×2 (10:30→18:24)
[2019-12-07] MEDS: ZINC SULFATE 220 MG CAP NG SCH (10:30)
--- NOTE | 2019-12-07 10:56 | Progress Note ---
DATE: Pulmonary Critical Care Progress Note. SUBJECTIVE: The patient is currently on PRVC mode of ventilation. Attempted a spontaneous breathing trial this morning with the patient became tachypneic. She had to be switched back to PRVC. The patient remains on Diprivan for sedation. PHYSICAL EXAMINATION: VITAL SIGNS: Blood pressure is 97/42 with a heart rate of 55. Saturation is now 100% on a PRVC with a sed rate of 18 and tidal volume of 400. The PEEP is set at 8 and the FiO2 is set at 50%. HEENT: Shows no facial swelling or erythema. There is an oral endotracheal tube in place. She has a PICC line in place. CARDIAC: Reveals regular rate and rhythm with normal S1, S2. LUNGS: Auscultation of lungs reveals rhonchorous breath sounds bilaterally. There is no wheezing. ABDOMEN: Soft and nontender. There is no rebound or guarding. EXTREMITIES: Shows no leg edema or calf tenderness. There is no cyanosis or clubbing. SKIN: Shows no rashes. NEUROLOGICAL: Shows the patient to be sedated. She is arousable and awake when the sedation is held. LABORATORY DATA: White blood cell count is 8.06 and hemoglobin is 13.2. The platelet count is 294. BUN to creatinine ratio is 25 to 0.83. Albumin is 2.6. RADIOGRAPHIC DATA: Shows interval increase in patchy pulmonary airspace disease. IMPRESSION: 1. Acute respiratory failure. 2. Viral pneumonia and COVID-19 infection. 3. Asthma with acute exacerbation. 4. Metabolic encephalopathy. 5. Acute kidney injury. PLAN: 1. Repeat ABG and wean as tolerated. 2. Complete Decadron. 3. Complete remdesivir. 4. Continue enteral feedings. 5. Continue Lovenox. 6. Continue bronchodilators. 7. Case discussed with Respiratory, nursing staff, Nephrology, Infectious Disease, and family. Greater than 35 minutes in direct critical care time. Patrick Wren MD [facility]/MODL /[id number]
[2019-12-07] MEDS: PROPOFOL IV EMULSION 10MG/ML 100 ML IV PRN ×2 (13:25→23:00)
[2019-12-07] MEDS: REMDESIVIR 100MG/NS 100ML 100 MG IV SCH (14:00)
[2019-12-07] MEDS: DEXAMETHASONE PHOS 4MG/ML 5ML MULTIDOSE VIAL IV SCH (20:23)
[2019-12-07] MEDS: NOREPINEPHRINE 8 MG/D5W 250 ML 250 ML IV PRN (23:00)
[2019-12-08] VITALS (28 sets, daily range): BP systolic 86–123; BP diastolic 33–74
[2019-12-08] MEDS: AZITHROMYCIN 500MG/NS 250 ML 250 ML IV SCH (02:00)
[2019-12-08] MEDS: ALBUTEROL SULFATE HFA 8GM INHALATION AEROSOL INH SCH ×6 (03:00→23:30)
--- NOTE | 2019-12-08 05:28 | Diagnostic Imaging Report ---
EXAMINATION: CHEST SINGLE (PORTABLE) INDICATION: ^resp failure COMPARISON: 12/07/2019 FINDINGS: AP view TUBES and LINES: Unchanged endotracheal tube, nasogastric tube, and right upper extremity PICC. LUNGS: Unchanged diffuse pulmonary airspace disease. PLEURA: No large pleural effusion. No pneumothorax. HEART AND MEDIASTINUM: The cardiomediastinal silhouette is unchanged. BONES AND SOFT TISSUES: No acute osseous lesion. Soft tissues are unremarkable. UPPER ABDOMEN: No free air under the diaphragm. IMPRESSION: Stable exam. Unchanged pulmonary airspace disease which may represent a combination of pneumonia and edema. Signed by: Iglesia Akhtar MD on 12/08/2019 5:25 AM
[2019-12-08 06:07] LABS: BASOPHILS % 0.2 % (0.0-1.0); EOSINOPHILS # (AUTO) 0.1 (0.0-0.4); EOSINOPHILS % 0.5 % (0.0-6.0); HEMATOCRIT 44.2 % (34.2-44.1); LYMPHOCYTES # (AUTO) 1.2 (1.0-3.2); LYMPHOCYTES % 9.5 % (18.0-39.1); MEAN CORPUSCULAR HEMOGLOBIN 28.5 pg (28-32); MEAN CORPUSCULAR HGB CONC 31.7 g/dL (31-35); MONOCYTES # (AUTO) 0.8 (0.2-0.8); MONOCYTES % 6.7 % (4.4-11.3); NEUTROPHILS # (AUTO) 10.2 (2.1-6.9); NEUTROPHILS % 81.3 % (38.7-80.0); PLATELET COUNT 355 x10e3/uL (140-360); RED BLOOD COUNT 4.91 x10e6/uL (3.6-5.1); RED CELL DISTRIBUTION WIDTH 13.9 % (11.7-14.4)
[2019-12-08] MEDS: LEVOTHYROXINE SODIUM 50 MCG TAB PO SCH (06:15)
[2019-12-08 06:35] LABS: ALANINE AMINOTRANSFERASE 28 IU/L (0-55); ALBUMIN 2.7 g/dL (3.5-5.0); ALBUMIN/GLOBULIN RATIO 0.6 (0.8-2.0); ALKALINE PHOSPHATASE 65 IU/L (40-150); ANION GAP 14.1 mmol/L (8-16); BLOOD UREA NITROGEN 21 mg/dL (7-26); BUN/CREATININE RATIO 25 (6-25); CALCIUM 8.2 mg/dL (8.4-10.2); CARBON DIOXIDE 28 mmol/L (22-29); CHLORIDE 104 mmol/L (98-107); CREATININE, SERUM 0.84 mg/dL (0.57-1.11); EST GLOMERULAR FILTRATION RATE > 60 ML/MIN (60-); GLUCOSE 164 mg/dL (74-118); POTASSIUM 4.1 mmol/L (3.5-5.1); SODIUM 142 mmol/L (136-145)
[2019-12-08] MEDS: PROPOFOL IV EMULSION 10MG/ML 100 ML IV PRN ×3 (06:49→23:00)
[2019-12-08] MEDS: FAMOTIDINE 20 MG/2 ML VIAL IV SCH (08:07)
[2019-12-08] MEDS: FUROSEMIDE INJ 10 MG/ML 2 ML VIAL IV SCH (08:07)
[2019-12-08] MEDS: ASCORBIC ACID 500 MG TAB NG SCH ×2 (08:07→17:05)
[2019-12-08] MEDS: PANTOPRAZOLE SOD 40 MG TABEC PO SCH (08:07)
[2019-12-08] MEDS: ZINC SULFATE 220 MG CAP NG SCH (08:07)
[2019-12-08] MEDS: MONTELUKAST SODIUM 10 MG TAB PO SCH (08:07)
[2019-12-08] MEDS: ENOXAPARIN SOD INJ 40 MG/0.4 ML SYR SC SCH ×2 (08:07→21:15)
--- NOTE | 2019-12-08 09:50 | Progress Note ---
DATE: Pulmonary Critical Care Progress Note SUBJECTIVE: The patient is still on low-dose Levophed at 7 mcg. She was placed on a spontaneous breathing trial this morning with a pressure support of 8 and CPAP of 5. She is breathing about 24 times a minute with tidal volumes of 300-350 mL. Her sedation has been held and she is arousable. PHYSICAL EXAMINATION: VITAL SIGNS: The blood pressure is 106/45 and pulse is 89. The saturation is 97%. HEENT: Shows no facial swelling or erythema. There is an oral endotracheal tube in place. There is a PICC line in place. CARDIAC: Reveals regular rate and rhythm with normal S1, S2. LUNGS: Auscultation of lungs reveals crackles at the bases. There is no wheezing. ABDOMEN: Soft and nontender. There is no rebound or guarding. EXTREMITIES: Shows no leg edema or calf tenderness. There is no cyanosis or clubbing. SKIN: Shows no rashes. NEUROLOGICAL: Shows no focal abnormalities. LABORATORY DATA: ZGI-mo-oicegvrshh ratio is 21 to 0.84. Other electrolytes are within normal limits. The white blood cell count is 12.5 and hemoglobin is 14. The platelet count is 355. RADIOGRAPHIC DATA: Shows bilateral airspace disease. IMPRESSION: 1. Acute respiratory failure. 2. Viral pneumonia and COVID-19 infection. 3. Asthma. 4. Acute kidney injury. PLAN: 1. Stop Lasix and give two doses of albumin. 2. Wean Levophed. 3. Continue spontaneous breathing trial and check ABG. 4. Continue Lovenox. 5. Bronchodilators as needed. 6. Case discussed with nursing staff, Respiratory, Internal Medicine, and family. Greater than 35 minutes in direct critical care time. Patrick Wren MD [facility]/LIANEL /[id number]
[2019-12-08] MEDS: ALBUMIN 25% 25GM 100ML 0.25 GM/ML BTL IV SCH ×2 (13:09→21:15)
[2019-12-08] MEDS: REMDESIVIR 100MG/NS 100ML 100 MG IV SCH (14:45)
[2019-12-08 14:49] LABS: ABG PCO2 46 mmHg (35-45); ABG PH 7.44 (7.35-7.45)
[2019-12-08 14:50] LABS: ABG HCO3 32 mmol/L (22-26); ABG PO2 53 mmHg (80-105)
[2019-12-08] MEDS: NOREPINEPHRINE 8 MG/D5W 250 ML 250 ML IV PRN (16:00)
[2019-12-08] MEDS: DEXAMETHASONE PHOS 4MG/ML 5ML MULTIDOSE VIAL IV SCH (21:15)
[2019-12-09] VITALS (24 sets, daily range): BP systolic 80–140; BP diastolic 41–90
[2019-12-09] MEDS: CEFTRIAXONE SOD 1 GM/NS 50 ML 50 ML IV SCH (00:09)
[2019-12-09] MEDS: AZITHROMYCIN 500MG/NS 250 ML 250 ML IV SCH (02:23)
[2019-12-09] MEDS: ALBUTEROL SULFATE HFA 8GM INHALATION AEROSOL INH SCH ×3 (03:25→23:30)
[2019-12-09 06:01] LABS: BASOPHILS % 0.3 % (0.0-1.0); HEMOGLOBIN 13.6 g/dL (12.0-16.0); LYMPHOCYTES % 8.8 % (18.0-39.1); MEAN CORPUSCULAR HEMOGLOBIN 28.4 pg (28-32); MEAN CORPUSCULAR HGB CONC 31.6 g/dL (31-35); MEAN CORPUSCULAR VOLUME 89.8 fL (81-99); MONOCYTES # (AUTO) 1.1 (0.2-0.8); MONOCYTES % 10.2 % (4.4-11.3); NEUTROPHILS # (AUTO) 8.4 (2.1-6.9); NEUTROPHILS % 76.5 % (38.7-80.0); PLATELET COUNT 371 x10e3/uL (140-360); RED BLOOD COUNT 4.79 x10e6/uL (3.6-5.1); RED CELL DISTRIBUTION WIDTH 13.6 % (11.7-14.4)
[2019-12-09] MEDS: LEVOTHYROXINE SODIUM 50 MCG TAB PO SCH (06:20)
[2019-12-09 06:23] LABS: ALANINE AMINOTRANSFERASE 32 IU/L (0-55); ALBUMIN 3.8 g/dL (3.5-5.0); ALBUMIN/GLOBULIN RATIO 1.1 (0.8-2.0); ALKALINE PHOSPHATASE 58 IU/L (40-150); BLOOD UREA NITROGEN 20 mg/dL (7-26); BUN/CREATININE RATIO 23 (6-25); CALCIUM 9.1 mg/dL (8.4-10.2); CARBON DIOXIDE 29 mmol/L (22-29); CHLORIDE 103 mmol/L (98-107); CREATININE, SERUM 0.88 mg/dL (0.57-1.11); EST GLOMERULAR FILTRATION RATE > 60 ML/MIN (60-); GLUCOSE 195 mg/dL (74-118); SODIUM 144 mmol/L (136-145)
[2019-12-09] MEDS: PROPOFOL IV EMULSION 10MG/ML 100 ML IV PRN (06:28)
[2019-12-09] MEDS: PANTOPRAZOLE SOD 40 MG TABEC PO SCH (07:35)
--- NOTE | 2019-12-09 08:25 | Diagnostic Imaging Report ---
EXAMINATION: CHEST SINGLE (PORTABLE) INDICATION: Respiratory failure COMPARISON: Chest radiograph 12/08/2019 FINDINGS: LINES/TUBES:Support lines and tubes unchanged. LUNGS:The lungs are moderately inflated. Persistent left greater than right lower lung airspace opacities. PLEURA:No pleural effusion or pneumothorax. MEDIASTINUM:The cardiomediastinal silhouette appears unchanged in size and shape. BONES/SOFT TISSUES:No acute osseous injury. ABDOMEN:No free air under the diaphragm. IMPRESSION: Persistent left greater than right lower lung airspace opacities consistent with known pneumonia. Signed by: Daniela Lux MD on 12/09/2019 8:21 AM
[2019-12-09] MEDS: ASCORBIC ACID 500 MG TAB NG SCH ×2 (09:00→16:26)
[2019-12-09] MEDS: ZINC SULFATE 220 MG CAP NG SCH (09:00)
[2019-12-09] MEDS: ENOXAPARIN SOD INJ 40 MG/0.4 ML SYR SC SCH ×2 (09:00→20:29)
[2019-12-09] MEDS: MONTELUKAST SODIUM 10 MG TAB PO SCH (09:00)
--- NOTE | 2019-12-09 10:51 | Progress Note ---
DATE: Pulmonary Critical Care Progress Note SUBJECTIVE: The patient was placed back on spontaneous breathing trial this morning. She is on a pressure support of 8 with a CPAP of 5 and breathing about 30 times a minute. Her tidal volumes are 300-350. Her saturations are adequate. She is not having fevers. PHYSICAL EXAMINATION: VITAL SIGNS: The patient is afebrile. The blood pressure is 118/50, saturation is 98%. The pulse is 71. HEENT: No facial swelling or erythema. CARDIAC: Regular rate and rhythm with normal S1, S2. LUNGS: Auscultation of lungs reveals crackles at the bases. There is no wheezing. ABDOMEN: Soft, nontender. There is no rebound or guarding. EXTREMITIES: No leg edema or calf tenderness. There is no cyanosis or clubbing. SKIN: No rashes. NEUROLOGICAL: No focal abnormalities. LABORATORY DATA: White blood cell count is 20 to 0.88. Other electrolytes are within normal limits. The albumin is 3.8. The white blood cell count is 10.94, hemoglobin is 13.6, and platelet count is 371. RADIOGRAPHIC DATA: Persistent infiltrates. IMPRESSION: 1. Acute respiratory failure. 2. Viral pneumonia and coronavirus disease-19 infection. 3. Asthma. 4. Acute kidney injury. PLAN: 1. Continue spontaneous breathing trial and repeat ABG. 2. Work towards extubation. 3. Continue Lovenox. 4. Bronchodilators as needed. 5. Complete dexamethasone. 6. Case discussed with nursing staff, Respiratory, Infectious Disease, and Internal Medicine. Greater than 35 minutes in direct critical care time. MD CLAUS De La O/MARTITA /[id number]
[2019-12-09] MEDS ORDERED: LIDOCAINE HCL 2% LOCAL 20 ML VIAL ONE (11:20)
[2019-12-09 14:02] LABS: ABG HCO3 30 mmol/L (22-26); ABG PCO2 42 mmHg (35-45); ABG PH 7.46 (7.35-7.45); ABG PO2 60 mmHg (80-105)
[2019-12-09] MEDS: CHOLECALCIFEROL 400 UNIT TAB PO SCH (16:26)
[2019-12-09 16:30] LABS: ABG HCO3 30 mmol/L (22-26); ABG PCO2 38 mmHg (35-45); ABG PO2 53 mmHg (80-105)
--- NOTE | 2019-12-09 19:28 | NUR ---
Sedation held and CPAP trials initiated. Dr. Annmarie Wren aware of abg results. Pt extubated at 1100 to vapotherm. Orders given for swallow evaluation and pt evaluation. Family updated on patient status.
[2019-12-09] MEDS: DEXAMETHASONE PHOS 4MG/ML 5ML MULTIDOSE VIAL IV SCH (20:29)
[2019-12-09] MEDS: ACETAMINOPHEN 325 MG TAB PO PRN (20:30)
[2019-12-10] VITALS (19 sets, daily range): BP systolic 93–138; BP diastolic 49–92
[2019-12-10] MEDS: CEFTRIAXONE SOD 1 GM/NS 50 ML 50 ML IV SCH (00:08)
[2019-12-10] MEDS: AZITHROMYCIN 500MG/NS 250 ML 250 ML IV SCH (01:19)
[2019-12-10] MEDS: ALBUTEROL SULFATE HFA 8GM INHALATION AEROSOL INH SCH ×6 (03:28→23:00)
[2019-12-10] MEDS: LEVOTHYROXINE SODIUM 50 MCG TAB PO SCH (06:19)
[2019-12-10] MEDS: ACETAMINOPHEN 325 MG TAB PO PRN (06:20)
[2019-12-10 06:24] LABS: BASOPHILS # (AUTO) 0.1 (0.0-0.1); BASOPHILS % 0.4 % (0.0-1.0); HEMATOCRIT 41.7 % (34.2-44.1); LYMPHOCYTES # (AUTO) 1.1 (1.0-3.2); LYMPHOCYTES % 7.6 % (18.0-39.1); MEAN CORPUSCULAR HEMOGLOBIN 28.3 pg (28-32); MEAN CORPUSCULAR HGB CONC 31.2 g/dL (31-35); MEAN CORPUSCULAR VOLUME 90.7 fL (81-99); MONOCYTES # (AUTO) 1.4 (0.2-0.8); MONOCYTES % 10.3 % (4.4-11.3); NEUTROPHILS % 78.2 % (38.7-80.0); PLATELET COUNT 380 x10e3/uL (140-360)
[2019-12-10 06:42] LABS: ALANINE AMINOTRANSFERASE 24 IU/L (0-55); ALBUMIN 3.2 g/dL (3.5-5.0); ALBUMIN/GLOBULIN RATIO 0.9 (0.8-2.0); ALKALINE PHOSPHATASE 56 IU/L (40-150); ANION GAP 12.4 mmol/L (8-16); BLOOD UREA NITROGEN 34 mg/dL (7-26); BUN/CREATININE RATIO 39 (6-25); CALCIUM 9.1 mg/dL (8.4-10.2); CARBON DIOXIDE 30 mmol/L (22-29); CHLORIDE 107 mmol/L (98-107); CREATININE, SERUM 0.87 mg/dL (0.57-1.11); EST GLOMERULAR FILTRATION RATE > 60 ML/MIN (60-); GLUCOSE 126 mg/dL (74-118); POTASSIUM 4.4 mmol/L (3.5-5.1); SODIUM 145 mmol/L (136-145)
--- NOTE | 2019-12-10 07:10 | NUR ---
infectious disease. Progress notes 12/10/2019 patient remains in intensive care unit he patient was placed back on spontaneous breathing trial this morning. She is on a pressure support of 8 with a CPAP of 5 and breathing about 30 times a minute. Her tidal volumes are 300-350. Her saturations are adequate. She is not having fevers. PHYSICAL EXAMINATION: VITAL SIGNS: The patient is afebrile. The blood pressure is 118/50, saturation is 98%. The pulse is 71. HEENT: No facial swelling or erythema. CARDIAC: Regular rate and rhythm with normal S1, S2. LUNGS: Auscultation of lungs reveals crackles at the bases. There is no wheezing. ABDOMEN: Soft, nontender. There is no rebound or guarding. EXTREMITIES: No leg edema or calf tenderness. There is no cyanosis or clubbing. SKIN: No rashes. NEUROLOGICAL: No focal abnormalities. LABORATORY DATA: White blood cell count is 20 to 0.88. Other electrolytes are within normal limits. The albumin is 3.8. The white blood cell count is 10.94, hemoglobin is 13.6, and platelet count is 371. RADIOGRAPHIC DATA: Persistent infiltrates. IMPRESSION: 1. Acute respiratory failure. 2. Viral pneumonia and coronavirus disease-19 infection. 3. Asthma. 4. Acute kidney injury. [id number]
--- NOTE | 2019-12-10 08:48 | Diagnostic Imaging Report ---
EXAMINATION: CHEST SINGLE (PORTABLE) INDICATION: Respiratory failure COMPARISON: Multiple prior chest radiographs, most recently of 12/09/2019 FINDINGS: LINES/TUBES:Interval extubation. Enteric tube remains in place. Right PICC line unchanged. LUNGS:The lungs are moderately inflated. Persistent multifocal bilateral patchy opacities. PLEURA:No pleural effusion or pneumothorax. MEDIASTINUM:The cardiomediastinal silhouette appears unchanged in size and shape. Atherosclerotic calcifications of the thoracic aorta. BONES/SOFT TISSUES:No acute osseous injury. ABDOMEN:No free air under the diaphragm. IMPRESSION: Interval extubation. Persistent bilateral multifocal patchy airspace opacities consistent with known pneumonia. Signed by: Daniela Lux MD on 12/10/2019 8:44 AM
[2019-12-10] MEDS: MONTELUKAST SODIUM 10 MG TAB PO SCH (09:19)
[2019-12-10] MEDS: PANTOPRAZOLE SOD 40 MG TABEC PO SCH (09:19)
[2019-12-10] MEDS: ENOXAPARIN SOD INJ 40 MG/0.4 ML SYR SC SCH ×2 (09:19→21:00)
[2019-12-10] MEDS: CHOLECALCIFEROL 400 UNIT TAB PO SCH ×2 (09:19→17:08)
[2019-12-10] MEDS: ASCORBIC ACID 500 MG TAB NG SCH ×2 (09:19→18:20)
[2019-12-10] MEDS: ZINC SULFATE 220 MG CAP NG SCH (09:19)
--- NOTE | 2019-12-10 13:46 | NUR ---
Nutrition Intervention Note RD Recommendation(s) for Physician: -If safe for po, recommend Regular diet with texture per BUSINESS RISK ANALYST -If pt unsafe for po, recommend resuming TF of Glucerna 1.2 with goal rate of 45 ml/hr (1296 kcal and 65 gm protein) -Fluid management per MD Plan of Care: RD following, monitoring for tolerance and adequacy, tube feed recommendation Nutrition reason for involvement: follow up RD Assessment 12/09: Follow up. Pt off sedation and extubated. BUSINESS RISK ANALYST evaluation for po/diet safety pending. Pt continues on Levophed. Chart reviewed. Diet and TF rec's provided. Will continue to monitor. (12/05/19) Pt is a 64 year old female admitted with acute respiratory failure. Pt is COVID+ and is currently intubated. Pt currently has an order for tube feeding. Pt is receiving propofol at 37.3 mL/hr per documentation which provides 985 kcal. Unable to obtain nutrition history at this time. Recommendations provided. Will continue to monitor. Principal Problems/Diagnoses: acute respiratory failure PMH: asthma, hypothyroid GI: LBM 12/04 x2 Skin: scaly lesions documented Labs: 12/09: Na 145, K 4.4, BUN 34, Cr 0.87, Gluc 126 (12/04) Na 142, K 3.9, BUN 13, Cr 0.89, Glu 124, Ca 7.9, AST 36 Meds: Levophed at 5 mcg/min, decadron, zofran, vitamin D3, vitamin C, zinc sulfate, protonix, synthroid, azithromycin Ht: 60 inches Wt: 228 lbs BMI: 44.5 kg/m2 IBW: 100 lbs Malnutrition Evaluation (12/05/19) Unable to assess. Will re-evaluate at follow-up as appropriate. Nutrition Prescription (Diet Order): Glucerna 1.2 @ 30 ml/hr (864 kcal and 43 gm protein) Estimated Nutritional Needs: 3299-7193 calories/day (22-25 kcal/kg IBW) 68-90 g protein/day (1.5-2 g pro/kg IBW) Diet Adequacy: Not meeting calorie needs, not meeting protein needs- per current documented TF rate Tolerance: Tolerating TF Diet Education Needs Assessment: Diet education not indicated at this time. Nutrition Care Level: mod Nutrition Diagnosis: Inadequate oral intake related to acute respiratory failure/mechanical ventilation as evidenced by pt requiring enteral nutrition Goal: Patient will meet 75-100% of estimated needs by follow up Progress: progressing Interventions: -Composition, Rate, Route, Recommended Modifications Monitoring/Evaluation: -Total energy intake, Total protein intake, Formula/Solution, Prescription medication, Weight change Signed: Torri Kimbrough RD, LD, [facility]
--- NOTE | 2019-12-10 16:31 | Progress Note ---
DATE: SUBJECTIVE: The patient is extubated yesterday. She is still on a high-flow nasal cannula at 12 L. She is off Levophed. PHYSICAL EXAMINATION: VITAL SIGNS: Blood pressure is 130/57, saturation is 94% on 12 L. HEENT: Shows no facial swelling or erythema. CARDIAC: Reveals regular rate and rhythm with normal S1, S2. LUNGS: Auscultation of lungs shows decreased breath sounds at the bases. There is no wheezing. ABDOMEN: Soft and nontender. There is no rebound or guarding. EXTREMITIES: Shows no leg edema or calf tenderness. There is no cyanosis or clubbing. SKIN: Shows no rashes. NEUROLOGICAL: Shows no focal abnormalities. LABORATORY DATA: White blood cell count is 14, hemoglobin is 13, the platelet count is 380. BUN to creatinine ratio is 34 to 0.87. Albumin is 3.2. RADIOGRAPHIC DATA: Chest x-ray shows multifocal bilateral infiltrates. IMPRESSION: 1. Acute respiratory failure. 2. Viral pneumonia and COVID-19 infection. 3. Asthma. 4. Acute kidney injury. PLAN: 1. Continue to wean oxygen. 2. Continue Lovenox. 3. Continue bronchodilators. 4. Continue dexamethasone. 5. Work towards transfer out of intensive care unit. MD CLAUS De L aO/MARTITA /[id number]
--- NOTE | 2019-12-10 17:07 | Progress Note ---
DATE: SUBJECTIVE: Ms. Cook remains in the emergency room, but currently looking better. OBJECTIVE: VITAL SIGNS: Temperature 97.1, heart rate 74, she is on 15 L high-flow. HEENT: Normal. Not icteric. NECK: Supple. CHEST: Clear. HEART: S1, S2. ABDOMEN: Soft. LABORATORY DATA: White count . Sodium 145. Creatinine of 0.87. IMPRESSION AND PLAN: Coronavirus disease-19, improving. Continue Lovenox. Discontinue azithromycin. Discontinue Rocephin. PT and OT. To finish 10 days of Decadron. Discussed with the medical team. MD ANGEL Zamorano/MARTITA /[id number]
--- NOTE | 2019-12-10 20:10 | NUR ---
Transferred to room 179 via stretcher. Pt alert and oriented to name. Right NG tube in place, connected Glucerna 1.2 @50ml/hr. Neumann 16Fr running dark abena urine. HOB 75 degrees. Denies pain at this time. Bed low and locked.
[2019-12-10] MEDS: DEXAMETHASONE PHOS 4MG/ML 6 MG in SODIUM CHLORIDE 0.9% 50ML 50 ML IV SCH (21:00)
[2019-12-10] MEDS ORDERED: SODIUM CHLORIDE 0.9% 250ML 250 ML ONE (21:11)
[2019-12-11] VITALS (8 sets, daily range): BP systolic 116–146; BP diastolic 52–78
[2019-12-11] MEDS: ALBUTEROL SULFATE HFA 8GM INHALATION AEROSOL INH SCH ×3 (03:00→23:00)
--- NOTE | 2019-12-11 04:19 | Progress Note ---
DATE: 12/10/2019 CONSULTING PHYSICIANS: 1. Swapna Carver MD. 2. Patrick Wren MD. 3. Robson Wren MD. SUBJECTIVE: The patient still complains of cough, being tired. OBJECTIVE: VITAL SIGNS: Temperature 99.9, T-max 100.4, heart rate 78, blood pressure 123/57, respirations 20, oxygen saturation 98%. GENERAL: Supine, alert. LUNGS: With few crackles in the bases. High-flow nasal cannula at 10 L/minute. HEENT: EOMI. NG tube with Glucerna 20 mL an hour. NECK: Supple. CARDIOVASCULAR: Regular rate and rhythm. No murmur. ABDOMEN: Bowel sounds positive. Soft and nontender. EXTREMITIES: No clubbing, cyanosis, or marked swelling. No signs or symptoms of DVT. NEUROLOGICAL: GCS 15. Nonfocal. LABORATORY DATA: WBC 14.01, hemoglobin 13, hematocrit 41.7, platelets 380. Sodium 145, potassium 4.4, chloride 107, CO2 of 30, anion gap 12.4, BUN 34 and creatinine 0.87, estimated GFR greater than 60, glucose 126. Hemoglobin A1c 5.8%, calcium 9.1, total bilirubin 0.4, AST 24, ALT 24, alkaline phosphatase 56. Total protein 6.6, albumin 3.2. Chest x-ray today showed interval extubation, persistent bilateral multifocal patchy airspace opacities. She underwent a bedside swallow evaluation by Speech and Language pathology today. Per Speech, she is tolerating thin liquids and ice chips okay. Unable to attempt other consistencies as the patient is less than 48 hours post extubation. ASSESSMENT/PLAN: 1. COVID-19 pneumonia, pneumonia with acute respiratory distress syndrome, status post extubation on 12/09/2019. Azithromycin and Rocephin were discontinued by Infectious Disease, status post remdesivir. Continue Lovenox and Levophed, currently infusing at 3 mcg/minute. Continue dexamethasone, vitamin C, and zinc sulfate, as well as nebs. 2. Asthma. Continue supplemental oxygen p.r.n. Transaminitis, AST 41 (44) stable, monitor. Dictated by Toribio Hutchins NP Derrick Mantilla MD [facility]/MODL /[id number]
[2019-12-11] MEDS: LEVOTHYROXINE SODIUM 50 MCG TAB PO SCH (06:00)
[2019-12-11 06:26] LABS: BASOPHILS % 0.3 % (0.0-1.0); EOSINOPHILS % 0.2 % (0.0-6.0); HEMATOCRIT 41.3 % (34.2-44.1); HEMOGLOBIN 12.8 g/dL (12.0-16.0); LYMPHOCYTES % 7.7 % (18.0-39.1); MEAN CORPUSCULAR HEMOGLOBIN 28.3 pg (28-32); MEAN CORPUSCULAR VOLUME 91.2 fL (81-99); MONOCYTES # (AUTO) 1.1 (0.2-0.8); MONOCYTES % 8.7 % (4.4-11.3); NEUTROPHILS # (AUTO) 9.7 (2.1-6.9); NEUTROPHILS % 78.4 % (38.7-80.0); PLATELET COUNT 418 x10e3/uL (140-360); RED BLOOD COUNT 4.53 x10e6/uL (3.6-5.1); RED CELL DISTRIBUTION WIDTH 14.1 % (11.7-14.4)
--- NOTE | 2019-12-11 07:00 | NUR ---
RECEIVED REPORT FROM OFF GOING NIGHT NURSE. PATIENT IN STABLE CONDITION, NO S/S OF DISTRESS NOTED. NG TUBE TO THE RIGHT FÉLIX WITH GLUCERNA INFUSING @ 50 ML/HR. PATIENT IS TOLERATING THE FEED. PICC TO THE RIGHT UPPER ARM ASYMPTOMATIC AND PATENT, TRANSPARENT DRESSING C/D/I. CHAPARRO APPLIED AND PATENT DRAINING YELLOW URINE. BED IN LOWEST POSITION AND LOCKED. CALL LIGHT WITHIN REACH.
[2019-12-11 07:02] LABS: ALANINE AMINOTRANSFERASE 27 IU/L (0-55); ALBUMIN 3.1 g/dL (3.5-5.0); ALBUMIN/GLOBULIN RATIO 0.9 (0.8-2.0); ALKALINE PHOSPHATASE 57 IU/L (40-150); ANION GAP 13.4 mmol/L (8-16); BLOOD UREA NITROGEN 38 mg/dL (7-26); BUN/CREATININE RATIO 50 (6-25); CALCIUM 8.9 mg/dL (8.4-10.2); CARBON DIOXIDE 27 mmol/L (22-29); CHLORIDE 107 mmol/L (98-107); CREATININE, SERUM 0.76 mg/dL (0.57-1.11); EST GLOMERULAR FILTRATION RATE > 60 ML/MIN (60-); GLUCOSE 138 mg/dL (74-118); POTASSIUM 4.4 mmol/L (3.5-5.1); SODIUM 143 mmol/L (136-145)
[2019-12-11 07:16] LABS: MAGNESIUM 2.4 MG/DL (1.3-2.1); PHOSPHORUS 3.4 MG/DL (2.3-4.7)
[2019-12-11] MEDS: PANTOPRAZOLE SOD 40 MG TABEC PO SCH (07:30)
[2019-12-11] MEDS: ZINC SULFATE 220 MG CAP NG SCH (09:00)
[2019-12-11] MEDS: ASCORBIC ACID 500 MG TAB NG SCH ×2 (09:00→17:28)
[2019-12-11] MEDS: CHOLECALCIFEROL 400 UNIT TAB PO SCH ×2 (09:00→17:28)
[2019-12-11] MEDS: ENOXAPARIN SOD INJ 40 MG/0.4 ML SYR SC SCH ×2 (09:00→21:00)
[2019-12-11] MEDS: MONTELUKAST SODIUM 10 MG TAB PO SCH (09:00)
--- NOTE | 2019-12-11 16:17 | NUR ---
REMOVED NG TUBE PER THE PATIENT PASSING MBS. PATIENT TOLERATED REMOVAL WELL. NO PAIN VOICED.
--- NOTE | 2019-12-11 16:21 | Diagnostic Imaging Report ---
Modified Barium Swallow: Clinical History: Aspiration Comparison: None Fluoro time in minutes: 2.1 Radiation dose: 8.3 mGy air Kerma. Number of images: Multiple Report: The patient ingested various consistencies of barium with a speech pathologist in attendance. A full report from speech pathology will follow. Impression: Fluoroscopy service provided for modified barium swallow. Signed by: Laci Melendez MD on 12/11/2019 4:18 PM
--- NOTE | 2019-12-11 17:42 | Progress Note ---
DATE: Pulmonary Critical Care Progress Note SUBJECTIVE: The patient passed her swallowing test. She is able to eat food by mouth. She stood with physical therapy. She remains on 9 L of oxygen, but she feels better and has less dyspnea and less wheezing. PHYSICAL EXAMINATION: VITAL SIGNS: The blood pressure is 142/60, saturation is 91%. She is still on 9 L of oxygen. HEENT: No facial swelling or erythema. CARDIAC: Regular rate and rhythm with normal S1, S2. LUNGS: Auscultation of lungs reveals rhonchorous breath sounds bilaterally. There is no wheezing. ABDOMEN: Soft, nontender. There is no rebound or guarding. There is no leg edema or calf tenderness. There is no cyanosis or clubbing. SKIN: No rashes. NEUROLOGICAL: No focal abnormalities. LABORATORY DATA: White blood cell count is 12.4 and hemoglobin is 12.8. The platelet count is 418. The BUN to creatinine ratio is 38 to 0.76. Other electrolytes are within normal limits. IMPRESSION: 1. Acute respiratory failure. 2. Viral pneumonia coronavirus disease-19 infection. 3. Asthma. 4. Acute kidney injury. PLAN: 1. Continue to wean oxygen. 2. Advance diet as tolerated. 3. Bronchodilators. 4. Physical therapy. 5. Complete dexamethasone. 6. Continue Lovenox. Patrick Wren MD [facility]/MODL /[id number]
--- NOTE | 2019-12-11 18:53 | NUR ---
COMPLETED SHIFT REPORT WITH ON COMING NIGHT NURSE. PATIENT STABLE, NO S/S OF DISTRESS NOTED. TELEMETRY APPLIED. HIGH FLOW OXYGEN @ 10 LPM/NC. BED IN LOWEST POSITION AND LOCKED. CALL LIGHT WITHIN REACH.
--- NOTE | 2019-12-11 19:15 | NUR ---
SHIFT REPORT RECEIVED FROM MORNING NURSE. PT ALERT AND ORIENTED TO NAME, LYING IN BED HOB 60 DEGREES. O2@10L VIA HI FLOW NC. DENIES PAIN AT THIS TIME. BED ALARM ON. BED LOW AND LOCKED.
[2019-12-11] MEDS: DEXAMETHASONE PHOS 4MG/ML 6 MG in SODIUM CHLORIDE 0.9% 50ML 50 ML IV SCH (21:00)
--- NOTE | 2019-12-11 21:47 | Progress Note ---
DATE: ADDITIONAL ATTENDING PHYSICIAN: Dr. Derrick Mantilla. SUBJECTIVE: NG tube has been removed. The patient was able to side shuffle with physical therapy today. She has been having some loose stools while on tube feeds. Denies pain, increased cough when out of bed or with movement, tired. OBJECTIVE: VITAL SIGNS: Temperature 98.1, heart rate 72, blood pressure 124/52, respirations 18, and oxygen saturation 93%. GENERAL: Supine, awake, alert. LUNGS: With few crackles in the bases. Currently oxygen at 10 L/minute via high-flow, has been decreased to 8 L/minute. HEENT: EOMI. NECK: Supple. CARDIOVASCULAR: Regular rate and rhythm. No murmur. ABDOMEN: Bowel sounds positive. No guarding. Soft, nontender. EXTREMITIES: No cyanosis or signs of DVT. NEUROLOGICAL: GCS 15. Nonfocal. LABORATORY DATA: WBC 12.42, hemoglobin 12.8, hematocrit 41.3, platelets 418. Sodium 143, potassium 4.4, chloride 107, CO2 of 27, anion gap 13.4, BUN 38, creatinine 0.76, estimated GFR greater than 60, glucose 138, calcium 8.9, phosphorus 3.4, magnesium 2.4, total bilirubin 0.5, AST 33, ALT 27, alkaline phosphatase 57, total protein 6.5, albumin 3.1. 12/02, coronavirus PCR detected. Blood cultures x2 showed no growth after 5 days. Modified barium swallow completed today per speech therapy and the patient passed. ASSESSMENT AND PLAN: 1. COVID-19 pneumonia with acute respiratory distress syndrome, status post extubation on 12/09/2019, status post remdesivir, status post azithromycin and Rocephin. No longer on Levophed drip. Continue Lovenox, dexamethasone, vitamin C, and zinc sulfate, neb treatments, Singulair. 2. Asthma. Continue supplemental oxygen p.r.n. as well as montelukast sodium. 3. Transaminitis, improved. AST 33 (24, 41). 4. Prophylaxis. Lovenox and Protonix. TIME SPENT: 35 minutes. Billing code [id number]. Dictated by Toribio Hutchins, FABIÁN Derrick Mantilla MD [facility]/MODL /[id number]
[2019-12-11] MEDS: ALPRAZOLAM 0.5 MG TAB PO SCH (22:33)
[2019-12-12] VITALS (8 sets, daily range): BP systolic 105–153; BP diastolic 48–59
[2019-12-12] MEDS: ALBUTEROL SULFATE HFA 8GM INHALATION AEROSOL INH SCH ×5 (03:38→17:31)
[2019-12-12 05:32] LABS: BASOPHILS % 0.2 % (0.0-1.0); EOSINOPHILS % 0.1 % (0.0-6.0); HEMATOCRIT 41.9 % (34.2-44.1); HEMOGLOBIN 13.2 g/dL (12.0-16.0); LYMPHOCYTES # (AUTO) 1.8 (1.0-3.2); MEAN CORPUSCULAR HEMOGLOBIN 29.7 pg (28-32); MEAN CORPUSCULAR HGB CONC 31.5 g/dL (31-35); MEAN CORPUSCULAR VOLUME 94.4 fL (81-99); MONOCYTES # (AUTO) 1.5 (0.2-0.8); MONOCYTES % 11.6 % (4.4-11.3); NEUTROPHILS # (AUTO) 9.2 (2.1-6.9); NEUTROPHILS % 70.3 % (38.7-80.0); PLATELET COUNT 363 x10e3/uL (140-360); RED BLOOD COUNT 4.44 x10e6/uL (3.6-5.1); RED CELL DISTRIBUTION WIDTH 14.6 % (11.7-14.4)
[2019-12-12] MEDS: LEVOTHYROXINE SODIUM 50 MCG TAB PO SCH (06:00)
[2019-12-12 06:02] LABS: ALANINE AMINOTRANSFERASE 34 IU/L (0-55); ALBUMIN 3.2 g/dL (3.5-5.0); ALBUMIN/GLOBULIN RATIO 0.9 (0.8-2.0); ALKALINE PHOSPHATASE 69 IU/L (40-150); ANION GAP 10.8 mmol/L (8-16); BLOOD UREA NITROGEN 41 mg/dL (7-26); BUN/CREATININE RATIO 49 (6-25); CALCIUM 8.9 mg/dL (8.4-10.2); CARBON DIOXIDE 28 mmol/L (22-29); CHLORIDE 105 mmol/L (98-107); CREATININE, SERUM 0.84 mg/dL (0.57-1.11); EST GLOMERULAR FILTRATION RATE > 60 ML/MIN (60-); GLUCOSE 85 mg/dL (74-118); POTASSIUM 3.8 mmol/L (3.5-5.1); SODIUM 140 mmol/L (136-145)
[2019-12-12] MEDS: PANTOPRAZOLE SOD 40 MG TABEC PO SCH (07:32)
[2019-12-12] MEDS: ENOXAPARIN SOD INJ 40 MG/0.4 ML SYR SC SCH ×2 (09:35→20:19)
[2019-12-12] MEDS: ASCORBIC ACID 500 MG TAB NG SCH ×2 (09:35→17:11)
[2019-12-12] MEDS: ZINC SULFATE 220 MG CAP NG SCH (09:35)
[2019-12-12] MEDS: MONTELUKAST SODIUM 10 MG TAB PO SCH (09:35)
[2019-12-12] MEDS: CHOLECALCIFEROL 400 UNIT TAB PO SCH ×2 (09:35→17:11)
[2019-12-12] MEDS: DEXAMETHASONE PHOS 4MG/ML 6 MG in SODIUM CHLORIDE 0.9% 50ML 50 ML IV SCH (17:34)
--- NOTE | 2019-12-12 19:40 | NUR ---
COMPLETED SHIFT REPORT WITH OFF GOING RN LIANE DAY NURSE. PATIENT STABLE, NO S/S OF DISTRESS NOTED. OXYGEN @ 10 LPM/NC HIGH FLOW. BED IN LOWEST POSITION AND LOCKED. CALL LIGHT WITHIN REACH. REMAIN ON TELEMETRY CONT PULSE OX
[2019-12-12] MEDS ORDERED: LACTATED RINGER'S 1,000 ML INJ ONE (20:00)
--- NOTE | 2019-12-12 20:00 | NUR ---
patient started on LR@75cc/hr per MD orders
[2019-12-12] MEDS: ALPRAZOLAM 0.5 MG TAB PO SCH (20:19)
[2019-12-12] MEDS: VANCOMYCIN 1GM/NS 250 ML 250 ML IV SCH (20:19)
[2019-12-12] MEDS ORDERED: CEFEPIME HCL 1 GM VIAL IV SCH (22:00)
[2019-12-12] MEDS: CEFEPIME 1GM/NS 0.9% 50 ML 50 ML IV SCH (22:37)
--- NOTE | 2019-12-12 22:58 | Progress Note ---
DATE: Pulmonary/Critical Care Progress Note The patient is now complaining of discolored phlegm. She is still on 10 L. Her breathing has symptomatically improved. She has less chest pain and less dyspnea. She has no abdominal pain. PHYSICAL EXAMINATION: VITAL SIGNS: The blood pressure is 105/50 and the saturation is 91% on 10 L. the T-max is 99.5. HEENT: Shows no facial swelling or erythema. The oropharynx is normal. LYMPHATIC: Shows no submandibular, cervical, or supraclavicular adenopathy. CARDIAC: Reveals regular rate and rhythm with normal S1 and S2. LUNGS: Auscultation of lungs is rhonchorous breath sounds bilaterally. There is no wheezing. ABDOMEN: Soft, nontender. There is no rebound or guarding. EXTREMITIES: Shows no leg edema or calf tenderness. There is no cyanosis or clubbing. SKIN: Shows no rashes. NEUROLOGICAL: Shows no focal abnormalities. LABORATORY DATA: White blood cell count is 13, hemoglobin is 13.2, and platelet count is 363. BUN to creatinine ratio is 41 to 0.84. Other electrolytes are within normal limits. Albumin is 3.2. IMPRESSION: 1. Coronavirus disease-2019 and viral pneumonia with possible superinfection from bacteria. 2. Asthma. 3. Intravascular depletion and dehydration. PLAN: 1. Begin vancomycin and cefepime to cover for superimposed bacterial infection. 2. Continue Decadron. 3. Await final evaluation from speech therapy prior to removing NG tube. 4. Physical therapy. 5. Complete dexamethasone. 6. Lovenox. 7. Gentle hydration with repeat of labs tomorrow. Patrick Wren MD [facility]/MODL /[id number]
[2019-12-13] VITALS (15 sets, daily range): BP systolic 102–125; BP diastolic 44–64
[2019-12-13] MEDS: ALBUTEROL SULFATE HFA 8GM INHALATION AEROSOL INH SCH ×6 (03:06→22:17)
[2019-12-13 05:06] LABS: BASOPHILS % 0.2 % (0.0-1.0); HEMOGLOBIN 12.9 g/dL (12.0-16.0); LYMPHOCYTES # (AUTO) 0.8 (1.0-3.2); LYMPHOCYTES % 6.5 % (18.0-39.1); MEAN CORPUSCULAR HEMOGLOBIN 28.6 pg (28-32); MEAN CORPUSCULAR HGB CONC 30.7 g/dL (31-35); MEAN CORPUSCULAR VOLUME 93.1 fL (81-99); MONOCYTES # (AUTO) 0.6 (0.2-0.8); MONOCYTES % 4.8 % (4.4-11.3); NEUTROPHILS # (AUTO) 10.4 (2.1-6.9); NEUTROPHILS % 85.8 % (38.7-80.0); PLATELET COUNT 359 x10e3/uL (140-360); RED BLOOD COUNT 4.51 x10e6/uL (3.6-5.1); RED CELL DISTRIBUTION WIDTH 14.6 % (11.7-14.4)
[2019-12-13 05:13] LABS: ALANINE AMINOTRANSFERASE 30 IU/L (0-55); ALBUMIN 2.8 g/dL (3.5-5.0); ALBUMIN/GLOBULIN RATIO 0.8 (0.8-2.0); ALKALINE PHOSPHATASE 78 IU/L (40-150); ANION GAP 12.7 mmol/L (8-16); BLOOD UREA NITROGEN 30 mg/dL (7-26); BUN/CREATININE RATIO 39 (6-25); CALCIUM 8.8 mg/dL (8.4-10.2); CARBON DIOXIDE 26 mmol/L (22-29); CHLORIDE 107 mmol/L (98-107); CREATININE, SERUM 0.77 mg/dL (0.57-1.11); EST GLOMERULAR FILTRATION RATE > 60 ML/MIN (60-); GLUCOSE 115 mg/dL (74-118); POTASSIUM 4.7 mmol/L (3.5-5.1); SODIUM 141 mmol/L (136-145)
[2019-12-13] MEDS: LEVOTHYROXINE SODIUM 50 MCG TAB PO SCH (06:57)
[2019-12-13] MEDS: CEFEPIME 1GM/NS 0.9% 50 ML 50 ML IV SCH ×3 (06:57→21:54)
[2019-12-13] MEDS: PANTOPRAZOLE SOD 40 MG TABEC PO SCH (07:30)
[2019-12-13] MEDS: VANCOMYCIN 1GM/NS 250 ML 250 ML IV SCH ×4 (08:00→22:00)
[2019-12-13] MEDS: ZINC SULFATE 220 MG CAP NG SCH (09:00)
[2019-12-13] MEDS: CHOLECALCIFEROL 400 UNIT TAB PO SCH ×2 (09:24→17:15)
[2019-12-13] MEDS: GUAIFENESIN 600MG/DEXTROMETHORPHAN 30MG TABSR PO SCH ×2 (09:24→17:15)
[2019-12-13] MEDS: ASCORBIC ACID 500 MG TAB NG SCH ×2 (09:24→17:15)
[2019-12-13] MEDS: MONTELUKAST SODIUM 10 MG TAB PO SCH (09:24)
[2019-12-13] MEDS: ENOXAPARIN SOD INJ 40 MG/0.4 ML SYR SC SCH ×2 (09:24→20:07)
--- NOTE | 2019-12-13 09:54 | Diagnostic Imaging Report ---
EXAMINATION: CHEST SINGLE (PORTABLE) INDICATION: Respiratory failure COMPARISON: Multiple prior chest radiographs, most recently of 12/10/2019 FINDINGS: LINES/TUBES: Enteric tube remains in place. Right PICC line unchanged. LUNGS:Interval increase in extent of bilateral patchy consolidations compatible with worsening pneumonia. PLEURA:Persistent left basilar opacity which could be due to atelectasis or pneumonia. MEDIASTINUM:The cardiomediastinal silhouette appears unchanged in size and shape. Atherosclerotic calcifications of the thoracic aorta. BONES/SOFT TISSUES:No acute osseous injury. ABDOMEN:No free air under the diaphragm. IMPRESSION: Interval increase in extent of bilateral patchy consolidations compatible with worsening pneumonia. Signed by: Soren Eng MD on 12/13/2019 9:51 AM
--- NOTE | 2019-12-13 13:14 | Progress Note ---
DATE: 12/12/2019 CONSULTING PHYSICIANS: 1. Dr. Patrick Wren with Pulmonology. 2. Dr. Robson Wren with Cardiology. 3. Dr. Swapna Carver with Infectious Disease. SUBJECTIVE: The patient is lying supine in bed, is asleep, is easily arousable. Per the nurse, her sleep pattern is such that she may have obstructive sleep apnea, but when I saw the patient, she did not appear to be having any difficulty breathing or stopping breathing while asleep. One of her chief complaints is thick phlegm. She has minimal shortness of breath with ambulation. OBJECTIVE: VITAL SIGNS: Temperature 99.5, heart rate 90, blood pressure 105/58, respirations 20, and oxygen saturation 98%. GENERAL: Supine, sleep, no acute distress. LUNGS: With few crackles in the bases. Currently, she is on high-flow oxygen via nasal cannula at 10 L/minute. HEENT: EOMI. NECK: Supple. CARDIOVASCULAR: Regular rate and rhythm. No murmur. She has lactated Ringer's infusing at 75 mL an hour. ABDOMEN: Bowel sounds positive. Soft, nontender. No guarding. She has a Neumann catheter with abena urine. She is obese. EXTREMITIES: No pitting edema. No clubbing, cyanosis, or signs of deep venous thrombosis. She has a hematoma on the right medial ankle. NEUROLOGIC: GCS is 15. Nonfocal. LABORATORY DATA: WBC 13.06, hemoglobin 13.2, hematocrit 41.9, and platelets 363. Sodium 140, potassium 3.8, chloride 105, CO2 of 28, anion gap 10.8, BUN 41, creatinine 0.84, estimated GFR greater than 60, glucose 85, calcium 8.9, AST 31, ALT 34, alkaline phosphatase 69, total bilirubin 6.6, albumin 3.2. The patient had modified barium swallow yesterday on 12/11/2019, which she passed. ASSESSMENT AND PLAN: 1. COVID-19 pneumonia with acute respiratory distress syndrome, status post extubation on 12/09/2019. She is now status post azithromycin, Rocephin, and remdesivir. No longer requiring the Levophed drip. Continue Lovenox. Finish dexamethasone. Continue vitamin C, zinc sulfate, neb treatments. Physical therapy eval and treat. 2. Asthma. Continue Montelukast sodium, on supplemental oxygen. Wean off oxygen as tolerated. 3. Transaminitis. AST 31 (34). 4. Prophylaxis. Lovenox and Protonix. BILLING CODE: 98906. TIME SPENT: 35 minutes. Dictated by Toribio Hutchins, OCCASIONAL CAREGIVER MD [facility]/MODL /[id number]
[2019-12-13] MEDS ORDERED: ACETAMINOPHEN 325 MG TAB ONE (16:46)
[2019-12-13] MEDS: ACETAMINOPHEN 325 MG TAB PO PRN (17:20)
--- NOTE | 2019-12-13 17:20 | Progress Note ---
DATE: Pulmonary Critical Care Progress Note SUBJECTIVE: The patient still has cough productive of some phlegm. She is on 10 L of oxygen, but takes it off intermittently. Her saturations are in the low 90s. PHYSICAL EXAMINATION: VITAL SIGNS: The blood pressure is 114/44. Heart rate is 91. HEENT: Shows no facial swelling or erythema. CARDIAC: Reveals regular rate and rhythm with normal S1, S2. LUNGS: Auscultation of lungs reveals rhonchorous breath sounds bilaterally. There is no wheezing. ABDOMEN: Soft, nontender. There is no rebound or guarding. EXTREMITIES: Shows no leg edema or calf tenderness. There is no cyanosis or clubbing. SKIN: Shows no rashes. NEUROLOGICAL: Shows no focal abnormalities. LABORATORY DATA: White blood cell count is 12 and hemoglobin 12.9. The platelet count is 359. The BUN to creatinine ratio is 30 to 0.77 and the electrolytes within normal limits. The albumin is 2.8. RADIOGRAPHIC DATA: Chest x-ray shows bilateral pulmonary infiltrates. IMPRESSION: 1. COVID-19 infection and viral pneumonia with superimposed bacterial pneumonia. 2. Asthma. 3. Intravascular depletion and dehydration. PLAN: 1. Continue current antibiotics for superimposed bacterial infection. 2. Complete Decadron. 3. Physical therapy. 4. Lovenox. Patrick Wren MD [facility]/MODL /[id number]
[2019-12-13] MEDS ORDERED: ACETAMINOPHEN 325 MG TAB PO PRN (17:30)
--- NOTE | 2019-12-13 19:27 | NUR ---
REPORT RECEIVED FROM LANYD ROB, PATIENT AOX3, NO DISTRESS NOTED, REMAINS ON HIGH AURA O2 @ 10LITERS, VANCO TROUGH RESULTS PENDING
[2019-12-13] MEDS: ALPRAZOLAM 0.5 MG TAB PO SCH (20:07)
--- NOTE | 2019-12-13 20:12 | NUR ---
LAB CALLED RESULTS VIA TELEPHONE CRITICAL HIGH VANCO 14.6, MD MARRUFO NOTIFIED PENDING CALL BACK/ORDERS
[2019-12-13] MEDS: DEXAMETHASONE PHOS 4MG/ML 6 MG in SODIUM CHLORIDE 0.9% 50ML 50 ML IV SCH (21:00)
[2019-12-13] MEDS ORDERED: DEXAMETHASONE SOD PHOS INJ 4 MG/ML VIAL IV ONE (22:15)
[2019-12-14] VITALS (17 sets, daily range): BP systolic 110–135; BP diastolic 55–85
[2019-12-14] MEDS: ALBUTEROL SULFATE HFA 8GM INHALATION AEROSOL INH SCH ×6 (02:05→22:59)
[2019-12-14] MEDS: LEVOTHYROXINE SODIUM 50 MCG TAB PO SCH (05:32)
[2019-12-14] MEDS: CEFEPIME 1GM/NS 0.9% 50 ML 50 ML IV SCH ×3 (05:32→22:59)
[2019-12-14 05:44] LABS: BASOPHILS % 0.2 % (0.0-1.0); HEMATOCRIT 40.8 % (34.2-44.1); HEMOGLOBIN 12.8 g/dL (12.0-16.0); LYMPHOCYTES # (AUTO) 0.7 (1.0-3.2); MEAN CORPUSCULAR HEMOGLOBIN 29.6 pg (28-32); MEAN CORPUSCULAR HGB CONC 31.4 g/dL (31-35); MEAN CORPUSCULAR VOLUME 94.4 fL (81-99); MONOCYTES # (AUTO) 0.2 (0.2-0.8); MONOCYTES % 1.9 % (4.4-11.3); NEUTROPHILS # (AUTO) 10.7 (2.1-6.9); NEUTROPHILS % 89.9 % (38.7-80.0); PLATELET COUNT 287 x10e3/uL (140-360); RED BLOOD COUNT 4.32 x10e6/uL (3.6-5.1); RED CELL DISTRIBUTION WIDTH 14.6 % (11.7-14.4)
[2019-12-14 06:35] LABS: ALANINE AMINOTRANSFERASE 28 IU/L (0-55); ALBUMIN 2.9 g/dL (3.5-5.0); ALBUMIN/GLOBULIN RATIO 0.8 (0.8-2.0); ALKALINE PHOSPHATASE 75 IU/L (40-150); ANION GAP 11.6 mmol/L (8-16); BLOOD UREA NITROGEN 24 mg/dL (7-26); BUN/CREATININE RATIO 32 (6-25); CALCIUM 8.6 mg/dL (8.4-10.2); CARBON DIOXIDE 26 mmol/L (22-29); CHLORIDE 109 mmol/L (98-107); CREATININE, SERUM 0.74 mg/dL (0.57-1.11); EST GLOMERULAR FILTRATION RATE > 60 ML/MIN (60-); GLUCOSE 121 mg/dL (74-118); POTASSIUM 4.6 mmol/L (3.5-5.1); SODIUM 142 mmol/L (136-145)
[2019-12-14] MEDS: ZINC SULFATE 220 MG CAP NG SCH (07:24)
[2019-12-14] MEDS: ACETAMINOPHEN 325 MG TAB PO PRN (07:26)
[2019-12-14] MEDS: ASCORBIC ACID 500 MG TAB NG SCH ×2 (08:05→16:42)
[2019-12-14] MEDS: PANTOPRAZOLE SOD 40 MG TABEC PO SCH (08:05)
[2019-12-14] MEDS: ENOXAPARIN SOD INJ 40 MG/0.4 ML SYR SC SCH ×2 (08:05→21:05)
[2019-12-14] MEDS: VANCOMYCIN 1GM/NS 250 ML 250 ML IV SCH ×2 (08:05→20:00)
[2019-12-14] MEDS: CHOLECALCIFEROL 400 UNIT TAB PO SCH ×2 (08:05→16:42)
[2019-12-14] MEDS: GUAIFENESIN 600MG/DEXTROMETHORPHAN 30MG TABSR PO SCH ×2 (08:05→16:42)
[2019-12-14] MEDS: MONTELUKAST SODIUM 10 MG TAB PO SCH (08:05)
--- NOTE | 2019-12-14 20:21 | Progress Note ---
DATE: SUBJECTIVE: The patient is requiring less oxygen. She still has some cough, but is feeling better. She is getting out of bed with physical therapy. PHYSICAL EXAMINATION: VITAL SIGNS: Blood pressure is 135/70, saturation is 94% on 10 L of oxygen. HEENT: Shows no facial swelling or erythema. CARDIAC: Reveals regular rate and rhythm with normal S1 and S2. LUNGS: Auscultation of lungs reveals rhonchorous breath sounds bilaterally. There is no wheezing. ABDOMEN: Soft and nontender. There is no rebound or guarding. EXTREMITIES: Shows no leg edema or calf tenderness. There is no cyanosis or clubbing. SKIN: Shows no rashes. NEUROLOGICAL: Shows no focal abnormalities. LABORATORY DATA: CBC is within normal limits. BUN to creatinine ratio is normal. Electrolytes are within normal limits. IMPRESSION: 1. COVID-19 and viral pneumonia. 2. Asthma. PLAN: 1. Wean oxygen. 2. Physical therapy. 3. Continue current antibiotics. 4. Lovenox. Patrick Wren MD [facility]/MODL /[id number]
--- NOTE | 2019-12-14 20:41 | NUR ---
vanco trough level 17.7, per [facility] ADMINISTRATOR AMROSE HOLD THIS DOSE FOR 1999 ON 12/14/2019, THEN DRAW VANCO RANDOM PRIOR TO NEXT DOSE, CALL MD JOSÉ WITH RESULTS FOR ORDERS
--- NOTE | 2019-12-14 21:00 | NUR ---
CHAPARRO DISCONTINUE PER MD ORDER, CATHETER INTACT, PT TOLERATED ACTIVITY WELL, NO HEMATURIA NOTED, 300CC CAN COLORED URINE IN CHAPARRO, PATIENT DTV BY [id number]
[2019-12-14] MEDS: ALPRAZOLAM 0.5 MG TAB PO SCH (21:05)
[2019-12-14] MEDS ORDERED: SODIUM CHLORIDE 0.9% 250ML 250 ML ONE (21:50)
[2019-12-15] VITALS (15 sets, daily range): BP systolic 88–132; BP diastolic 37–71
--- NOTE | 2019-12-15 | NUR ---
PATIENT ABLE TO STAND WITH ASSISTANCE FOR SHORT AMOUNT OF TIME TO TRANSFER TO BEDSIDE COMMODE, EXTREMELY FATIGUED AFTERWARDS, O2 SAT REMAIN WNR, BUT EXERTIONAL DYSPNEA NOTED, ABLE TO VOID W/O DIFFICUTLY, PLACED ON PUREWICK FOR COMFORT
[2019-12-15] MEDS: ALBUTEROL SULFATE HFA 8GM INHALATION AEROSOL INH SCH ×6 (03:00→23:14)
--- NOTE | 2019-12-15 05:00 | NUR ---
AM LABS DRAWN USING ASPECTIC TECHNIQUE VIA JUAN FRANCISCO PICC, FLUSHES WELL GOOD BLOOD RETURN, NEW PORTS PLACE AFTER BLOOD DRAW, BED IN LOWEST POSITION CALL LIGHT WITHIN REACH
[2019-12-15] MEDS: CEFEPIME 1GM/NS 0.9% 50 ML 50 ML IV SCH ×3 (05:08→23:14)
[2019-12-15] MEDS: LEVOTHYROXINE SODIUM 50 MCG TAB PO SCH (05:08)
[2019-12-15 05:39] LABS: BASOPHILS % 0.4 % (0.0-1.0); EOSINOPHILS % 0.1 % (0.0-6.0); HEMATOCRIT 40.4 % (34.2-44.1); HEMOGLOBIN 12.4 g/dL (12.0-16.0); LYMPHOCYTES # (AUTO) 1.7 (1.0-3.2); LYMPHOCYTES % 14.8 % (18.0-39.1); MEAN CORPUSCULAR HEMOGLOBIN 28.4 pg (28-32); MEAN CORPUSCULAR HGB CONC 30.7 g/dL (31-35); MEAN CORPUSCULAR VOLUME 92.7 fL (81-99); MONOCYTES # (AUTO) 1.2 (0.2-0.8); MONOCYTES % 10.3 % (4.4-11.3); NEUTROPHILS # (AUTO) 8.2 (2.1-6.9); PLATELET COUNT 359 x10e3/uL (140-360); RED BLOOD COUNT 4.36 x10e6/uL (3.6-5.1); RED CELL DISTRIBUTION WIDTH 14.3 % (11.7-14.4)
[2019-12-15 06:07] LABS: ANION GAP 11.9 mmol/L (8-16); BLOOD UREA NITROGEN 19 mg/dL (7-26); BUN/CREATININE RATIO 26 (6-25); CALCIUM 8.5 mg/dL (8.4-10.2); CARBON DIOXIDE 28 mmol/L (22-29); CHLORIDE 107 mmol/L (98-107); CREATININE, SERUM 0.74 mg/dL (0.57-1.11); EST GLOMERULAR FILTRATION RATE > 60 ML/MIN (60-); GLUCOSE 73 mg/dL (74-118); MAGNESIUM 2.4 MG/DL (1.3-2.1); PHOSPHORUS 2.3 MG/DL (2.3-4.7); POTASSIUM 3.9 mmol/L (3.5-5.1); SODIUM 143 mmol/L (136-145)
--- NOTE | 2019-12-15 07:16 | NUR ---
report given to RN ERICK PATIENT AWAKE ALERT NO DISTRESS REMAIN ON DROPLET ISOLATION PRECAUTIONS, ON OXYGEN 8-10LITER HIGH FLOW TITRATED TO KEEP SPO2.94%, PATIENT AFEBRILE OVERNIGHT, VSS, PICC JUAN FRANCISCO PATENT, X 2 LUMENS FLUSHES WELL, GOOD BLOOD RETURN, NEW PORTS PLACED
--- NOTE | 2019-12-15 07:20 | NUR ---
VANCO TROUGH WITHIN RANGE, ENDORSED TO AM LANDY SUAREZ TO CALL FOR ORDER FOR VANCO IV
[2019-12-15] MEDS ORDERED: ASPIRIN 81 MG CHEW TAB ONE (07:48)
[2019-12-15] MEDS: ZINC SULFATE 220 MG CAP NG SCH (08:39)
[2019-12-15] MEDS: ASCORBIC ACID 500 MG TAB NG SCH ×2 (08:39→17:21)
[2019-12-15] MEDS: PANTOPRAZOLE SOD 40 MG TABEC PO SCH (08:39)
[2019-12-15] MEDS: CHOLECALCIFEROL 400 UNIT TAB PO SCH ×2 (08:39→17:21)
[2019-12-15] MEDS: VANCOMYCIN 1GM/NS 250 ML 250 ML IV SCH ×2 (08:39→19:54)
[2019-12-15] MEDS: GUAIFENESIN 600MG/DEXTROMETHORPHAN 30MG TABSR PO SCH ×2 (08:39→17:21)
[2019-12-15] MEDS: MONTELUKAST SODIUM 10 MG TAB PO SCH (08:39)
[2019-12-15] MEDS: ENOXAPARIN SOD INJ 40 MG/0.4 ML SYR SC SCH ×2 (08:39→19:55)
--- NOTE | 2019-12-15 15:21 | NUR ---
Nutrition Intervention Note RD Recommendation(s) for Physician: - Continue regular diet Plan of Care: RD following, monitoring for tolerance and adequacy Nutrition reason for involvement: follow up RD Assessment 12/14: Follow up. Pt is primarily Danish speaking per chart. Pt is now on a regular diet with 50-100% meal intake recorded the past 3 days. Speech therapy note on 12/11, indicates pt is tolerating diet consistency. Will continue to monitor. 12/09: Follow up. Pt off sedation and extubated. 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 Pt continues on Levophed. Chart reviewed. Diet and TF rec's provided. Will continue to monitor. (12/05/19) Pt is a 64 year old female admitted with acute respiratory failure. Pt is COVID+ and is currently intubated. Pt currently has an order for tube feeding. Pt is receiving propofol at 37.3 mL/hr per documentation which provides 985 kcal. Unable to obtain nutrition history at this time. Recommendations provided. Will continue to monitor. Principal Problems/Diagnoses: acute respiratory failure PMH: asthma, hypothyroid GI: LBM 12/13 Skin: no pressure ulcers noted Labs: 12/14: Na 143, K 3.9, BUN 19, Cr 0.74, Glu 73, Mg 2.4 12/09: Na 145, K 4.4, BUN 34, Cr 0.87, Gluc 126 (12/04) Na 142, K 3.9, BUN 13, Cr 0.89, Glu 124, Ca 7.9, AST 36 Meds: antibiotics, vitamin D, vitamin C, levothyroxine, zinc sulfate, zofran Ht: 60 inches Wt: 224 lbs (12/14) 228 lbs (12/04) BMI: 43.7 kg/m2 IBW: 100 lbs Malnutrition Evaluation (12/05/19) Unable to assess. Will re-evaluate at follow-up as appropriate. Nutrition Prescription (Diet Order): Regular Estimated Nutritional Needs: 3428-6739 calories/day (22-25 kcal/kg IBW) 68-90 g protein/day (1.5-2 g pro/kg IBW) Diet Adequacy: Tolerance: tolerating PO Diet Education Needs Assessment: Diet education not indicated at this time. Nutrition Care Level: moderate Nutrition Diagnosis: Inadequate oral intake related to acute respiratory failure/mechanical ventilation as evidenced by pt requiring enteral nutrition (RESOLVED PT IS NO LONGER INTUBATED) Goal: Patient will meet 75-100% of estimated needs by follow up Progress: progressing Interventions: -General healthful diet Monitoring/Evaluation: -Total energy intake, Total protein intake, Weight change Signed: Corinna Aviles RD, LD
--- NOTE | 2019-12-15 15:43 | Progress Note ---
DATE: SUBJECTIVE: Ms. Cook is doing much better. She is still having some cough, which was productive of brown sputum, but she is out of ICU and doing well. She is lying in bed. PHYSICAL EXAMINATION: GENERAL: Currently alert, oriented. VITAL SIGNS: Stable and afebrile and obese. HEENT: She is not icteric. NECK: Supple. CHEST: Rhonchi. HEART: S1 and S2. ABDOMEN: Soft. LABORATORY DATA: Blood cultures are negative. Her white count 11.18, hemoglobin 12. Her sodium 143, potassium 3.9 with a creatinine 0.74. IMPRESSION: COVID-19, getting better, concern about aspiration pneumonia, healthcare-associated pneumonia, she is getting better. She is currently on vancomycin and cefepime. PLAN: The plan is to finish five days. Hypoxemic is also improving. She is currently on 10 L. Continue with antibiotic. Finish days of dexamethasone and Lovenox. Hypothyroidism, PT, OT, discussed with the patient. We will follow. MD ANGEL Zamorano/MODL /[id number]
--- NOTE | 2019-12-15 17:10 | Progress Note ---
DATE: SUBJECTIVE: The patient feels better, but is still requiring 10 L of oxygen. She is standing up and sitting in a chair with physical therapy. PHYSICAL EXAMINATION: VITAL SIGNS: Blood pressure is 118/71 and saturation is 92% on 10 L. HEENT: Shows no facial swelling or erythema. CARDIAC: Reveals a regular rate and rhythm with normal S1 and S2. LUNGS: Auscultation of lungs reveals rhonchorous breath sounds bilaterally. There is no wheezing. ABDOMEN: Soft and nontender. There is no rebound or guarding. EXTREMITIES: Shows no leg edema or calf tenderness. There is no cyanosis or clubbing. SKIN: Shows no rashes. NEUROLOGICAL: Shows no focal abnormalities. LABORATORY DATA: CBC is within normal limits. The BUN to creatinine ratio is normal. The other electrolytes are within normal limits. IMPRESSION: 1. COVID-19 and viral pneumonia. 2. Asthma. PLAN: 1. Physical therapy. 2. Continue current antibiotics. 3. Wean oxygen. 4. Lovenox. Patrick Wren MD [facility]/MODL /[id number]
[2019-12-15] MEDS: ALPRAZOLAM 0.5 MG TAB PO SCH (19:55)
--- NOTE | 2019-12-15 23:21 | NUR ---
REPORTED BY WALTER HUERTAS TO THIS NURSE THAT PATIENT IS HYPOTENSIVE, BLOOD PRESSURE 105/37, TEMP 98.4, RR 26, AND OXYGEN SAT @ 94 % ON HIGH FLOW 10 LITERS, PATIENT RESTING WITH EYES CLOSED NO DISTRESS NOTED, NO C/O SOB NOTED, MD JOSÉ TELEPHONE TWICE,PHONE WENT TO VOICEMAIL NO MSG LEFT, WILL REATTEMPT AFTER FEW MINUTES
--- NOTE | 2019-12-15 23:25 | NUR ---
TALKED WITH KASSANDRA LACY ABOUT PATIENT HYPOTENSION, ADVISE HIM THAT PATIENT SBP <100 ON RIGHT ARM AND 104/37 ON LEFT ARM PER NIGHT WAREHOUSE MANAGER, PATIENT IS RESTING WITH NO S/SX OF DISTRESS NOTED, SKIN WARM DRY, CALL LIGHT WITHIN REACH PER KASSANDRA LACY MONITOR PATIENT FOR ONE HOUR RETAKE BLOOD PRESSURE AND ADVISED HIM IF PATIENT REMAINS HYPOTENSIVE, WILL CONTINUE TO MONITOR PER PA
[2019-12-16] VITALS (10 sets, daily range): BP systolic 95–125; BP diastolic 36–61
--- NOTE | 2019-12-16 01:28 | NUR ---
LOTUS NOTES ADMINISTRATOR BAMBI DYE ON THE FLOOR EVALUATING PATIENT, ADVISED HIM THAT PATIENT SP02@90 PERCENT ON HIGH FLOW , PATIENT AWAKE ALERT, C/O SOB DURING TRANSFER AND WALKING, LYING STILL AT THIS TIME,CONTINUE TO DESAT, ABG ORDER TO EVALUATE PATIENT OXYGEN LEVEL, PT STATES " I FEEL GOOD",WILL CONTINUE TO MONITOR
--- NOTE | 2019-12-16 02:52 | NUR ---
ABG RESULTS PH 7.382; PCO2 44.5; PO2 46; NA 140 K+3.6 ;;RESULTS CALLED TO MD WILCOX, ORDER PATIENT TO BE PLACED ON HIGH AURA AND NON-REBREATHER FOR OXYGEN SUPPORT, AND PLACE IN PRONE POSITION
--- NOTE | 2019-12-16 03:06 | NUR ---
PT REFUSED TO BE PLACED IN PRONE POSITION STATING "hOW MY STOMACH,NO I CANT", PATIENT ABLE TO BE PLACED ON HER RIGHT SIDE, RED RASH NOTED UNDER STOMACH, AND BETWEEN LEGS POSS HEAT RASH, BARRIER CREAM APPLIED FOR SKIN BREAKDOWN PREVENTION
[2019-12-16] MEDS: ALBUTEROL SULFATE HFA 8GM INHALATION AEROSOL INH SCH ×6 (03:09→23:43)
[2019-12-16 04:30] LABS: ABG HCO3 27 mmol/L (22-26); ABG PCO2 45 mmHg (35-45); ABG PH 7.38 (7.35-7.45); ABG PO2 46 mmHg (80-105)
[2019-12-16 05:55] LABS: BASOPHILS % 0.4 % (0.0-1.0); EOSINOPHILS % 0.2 % (0.0-6.0); HEMATOCRIT 39.5 % (34.2-44.1); HEMOGLOBIN 12.4 g/dL (12.0-16.0); LYMPHOCYTES # (AUTO) 1.8 (1.0-3.2); LYMPHOCYTES % 16.2 % (18.0-39.1); MEAN CORPUSCULAR HEMOGLOBIN 29.7 pg (28-32); MEAN CORPUSCULAR HGB CONC 31.4 g/dL (31-35); MEAN CORPUSCULAR VOLUME 94.5 fL (81-99); MONOCYTES # (AUTO) 1.2 (0.2-0.8); MONOCYTES % 11.4 % (4.4-11.3); NEUTROPHILS # (AUTO) 7.6 (2.1-6.9); NEUTROPHILS % 70.6 % (38.7-80.0); PLATELET COUNT 282 x10e3/uL (140-360); RED BLOOD COUNT 4.18 x10e6/uL (3.6-5.1); RED CELL DISTRIBUTION WIDTH 14.4 % (11.7-14.4)
[2019-12-16] MEDS ORDERED: FLUTICASONE PROPIONATE NASAL SPRAY NS SCH ×2 (06:00→08:00)
--- NOTE | 2019-12-16 06:04 | NUR ---
AM LAB OBTAINED FROM [facility], ASEPTIC TECHNIQUE USED, FLUSHED BEFORE AND AFTER, PORT REPLACED AFTER PER PROTOCOL, CAPPED, PT TOLERATED ACTIVITY WELL, REMAIN ON DROPLET PRECAUTIONS, REMAIN ON HIGH FLOW AND VENTI MASK O2 PROTOCOLS, CALL LIGHT WITHIN REACH
--- NOTE | 2019-12-16 06:09 | NUR ---
PATIENT REMAIN HYPOTENSIVE 95/36 RETAKE RIGHT ARM 103/61 , MD JOSÉ PAGED VIA TELEPHONE, ATTEMPTING TO CONTACT FABIÁN DYE FOR ORDERS ATTEMPTED 5 TIMES TO CALL, PHONE KEEPS GOING TO ANSWERING SERVICE MSG LEFT
[2019-12-16] MEDS: CEFEPIME 1GM/NS 0.9% 50 ML 50 ML IV SCH ×3 (06:20→22:43)
[2019-12-16] MEDS: LEVOTHYROXINE SODIUM 50 MCG TAB PO SCH (06:20)
[2019-12-16 06:25] LABS: ALANINE AMINOTRANSFERASE 28 IU/L (0-55); ALBUMIN 2.7 g/dL (3.5-5.0); ALBUMIN/GLOBULIN RATIO 0.8 (0.8-2.0); ALKALINE PHOSPHATASE 65 IU/L (40-150); ANION GAP 11.7 mmol/L (8-16); BLOOD UREA NITROGEN 17 mg/dL (7-26); BUN/CREATININE RATIO 24 (6-25); CALCIUM 8.3 mg/dL (8.4-10.2); CARBON DIOXIDE 27 mmol/L (22-29); CHLORIDE 106 mmol/L (98-107); CREATININE, SERUM 0.71 mg/dL (0.57-1.11); EST GLOMERULAR FILTRATION RATE > 60 ML/MIN (60-); GLUCOSE 83 mg/dL (74-118); POTASSIUM 3.7 mmol/L (3.5-5.1); SODIUM 141 mmol/L (136-145)
--- NOTE | 2019-12-16 06:45 | NUR ---
FABIÁN LACY CONTACT VIA TELEPHONE MADE AWARE THAT PATIENT REMAIN HYPOTENSIVE HE STATED " I DONT WANT TO GIVEN HER FLUID AND CAUSE RENAL DAMAGE CONT TO MONITOR HER I WILL SEE HER IN COUPLE OF HOURS" NO ORDERS GIVEN ENDORSED TO DAYSHIFT RN TO CLOSELY MONITOR AND CALL MD IF ANY CHANGES
--- NOTE | 2019-12-16 08:08 | Diagnostic Imaging Report ---
Examination: Single AP view of the chest. COMPARISON: Portable chest 12/13/2019 INDICATION: Hypoxia IMPRESSION: 1. Lines and Tubes: Supporting lines are unchanged. 2. Hypoinflated lungs. No interval change in multifocal bilateral airspace opacities consistent with pneumonia. 3. Cardiomediastinal silhouette is normal. Central venous congestion. 4. No acute bony abnormalities. Signed by: Dr. Claude Sylvester M.D. on 12/16/2019 8:05 AM
[2019-12-16] MEDS: PANTOPRAZOLE SOD 40 MG TABEC PO SCH (08:15)
[2019-12-16] MEDS: ASCORBIC ACID 500 MG TAB NG SCH ×2 (08:15→17:16)
[2019-12-16] MEDS: ZINC SULFATE 220 MG CAP NG SCH (08:15)
[2019-12-16] MEDS: VANCOMYCIN 1GM/NS 250 ML 250 ML IV SCH ×2 (08:15→20:44)
[2019-12-16] MEDS: FLUTICASONE PROPIONATE NASAL SPRAY NS SCH ×2 (08:15→17:16)
[2019-12-16] MEDS: CHOLECALCIFEROL 400 UNIT TAB PO SCH ×2 (08:16→17:16)
[2019-12-16] MEDS: GUAIFENESIN 600MG/DEXTROMETHORPHAN 30MG TABSR PO SCH ×2 (08:16→17:16)
[2019-12-16] MEDS: ENOXAPARIN SOD INJ 40 MG/0.4 ML SYR SC SCH ×2 (08:16→20:44)
[2019-12-16] MEDS: MONTELUKAST SODIUM 10 MG TAB PO SCH (08:16)
--- NOTE | 2019-12-16 08:25 | NUR ---
Patient resting in bed, laying flat when I walked in, patient 02 sat was 82%. Sat patient on side of bed, asked to take deep breathes, and keep both NRB mask on and HiFlo (as she keeps taking them both off), and her O2 sats came up to 91-93%. Will continue to closely monitor and remind to keep on O2 and take deep breaths.
[2019-12-16] MEDS ORDERED: SODIUM CHLORIDE 0.9% 50ML 50 ML ONE (16:12)
[2019-12-16] MEDS ORDERED: IOPAMIDOL 370 MG/ML 200 ML INFUS..BTL INJ ONE (16:12)
--- NOTE | 2019-12-16 17:20 | Diagnostic Imaging Report ---
EXAM: CT Chest WITH contrast 12/16/2019 4:30 PM INDICATION: Chest pain and clinical concern for pulmonary embolism. COMPARISON: None TECHNIQUE: Chest was scanned utilizing a multidetector helical scanner from the lung apex through the level of the adrenal glands with administration of IV contrast. Coronal and sagittal reformations were obtained. Routine protocol was performed. IV CONTRAST: 100 mL of Omnipaque 300 COMPLICATIONS: None RADIATION DOSE: Total DLP: 424.45 mGy*cm Estimated effective dose: (DLP x 0.014 x size factor) mSv CTDIvol has been reviewed. It is below the limits set by the Radiation Protocol Committee (RPC). Dose modulation, iterative reconstruction, and/or weight based adjustment of the mA/kV was utilized to reduce the radiation dose to as low as reasonably achievable. FINDINGS: LINES/ TUBES: Partially imaged central venous catheter which terminates in the cavoatrial junction. LUNGS AND AIRWAYS: There is multifocal patchy airspace consolidative opacities throughout both lungs. The central airways are patent and the trachea is midline. PLEURA: The pleural spaces are clear. HEART AND MEDIASTINUM: The thyroid gland is normal. There are prominent mediastinal lymph nodes none of which meet criteria for pathologic enlargement and likely reactive. No axillary lymphadenopathy. The heart is mildly enlarged. There is no pericardial effusion. UPPER ABDOMEN: Unremarkable. BONES: The visualized bony thorax is within normal limits. SOFT TISSUES: Unremarkable. IMPRESSION: 1. No evidence of pulmonary embolism. 2. Multifocal patchy airspace consolidative opacities throughout both lungs. This most likely represents multifocal pneumonia (including viral pneumonia such as Covid-19) 3. Mild cardiomegaly. Signed by: Davin Hendricks MD on 12/16/2019 5:17 PM
--- NOTE | 2019-12-16 18:45 | Progress Note ---
DATE: SUBJECTIVE: The patient still has some low oxygen saturations, although she does not complain of dyspnea. She is not complaining of fever. There is no cough or chest pain. PHYSICAL EXAMINATION: VITAL SIGNS: The patient is afebrile. The blood pressure is 115/46, and saturation is in the low 90s on a high-flow nasal cannula. HEENT: Shows no facial swelling or erythema. CARDIAC: Reveals regular rate and rhythm with normal S1, S2. LUNGS: Auscultation of lungs reveals rhonchorous breath sounds bilaterally. There is no wheezing. ABDOMEN: Soft, nontender. There is no rebound or guarding. EXTREMITIES: Shows no leg edema or calf tenderness. There is no cyanosis or clubbing. SKIN: Shows no rashes. NEUROLOGICAL: Shows no focal abnormalities. LABORATORY DATA: White blood cell count is 10.7 and hemoglobin is 12.4. The platelet count is 282. The BUN to creatinine ratio is normal. The electrolytes are within normal limits. The albumin is 2.7. RADIOGRAPHIC DATA: Unchanged. There are still persistent bilateral infiltrates. IMPRESSION: 1. COLVID-19 and viral pneumonia. 2. Asthma. PLAN: 1. Continue current antibiotics. 2. Continue oxygen and wean as tolerated. 3. Continue bronchodilators. 4. Echocardiogram. 5. Lovenox. Patrick Wren MD [facility]/MODL /[id number]
--- NOTE | 2019-12-16 19:11 | Progress Note ---
DATE: SUBJECTIVE: Ms. Nicole feels a little bit worse today. She is still having some cough. She is on 15 L. OBJECTIVE: GENERAL: The patient is currently alert. VITAL SIGNS: Stable. Currently afebrile. HEENT: She is not icteric. NECK: Supple. CHEST: Few crackles. MEDICATION LIST: She is currently on cefepime. She is on Ventolin. She is on Lovenox, vancomycin, vitamin C and zinc. LABORATORY DATA: Her white count is 10.77, vancomycin trough reviewed. IMPRESSION: 1. Concerned about aspiration pneumonia. 2. COVID-19 from respiratory failure. 3. We will order CT of the chest. She remains on high FiO2. We will follow. MD ANGEL Zamorano/MARTITA /[id number]
--- NOTE | 2019-12-16 19:30 | NUR ---
Resumed care of patient. Patient awake and resting in bed, high flow nasal cannula and NRB mask in place at 15L. Vital signs stable, no s/s of distress at this time. Bed locked and in lowest position, side rails up x3, alarm on, call light placed within reach. All safety measures in place. Will continue to monitor.
--- NOTE | 2019-12-16 20:09 | NUR ---
Left voicemail to Nori LOCKWOOD regarding lab results (vanco 16.8). Awaiting return call at this time.
--- NOTE | 2019-12-16 20:35 | NUR ---
Per Dr. Holger hadley to give vancomycin at this time.
[2019-12-16] MEDS: ALPRAZOLAM 0.5 MG TAB PO SCH (20:44)
[2019-12-16] MEDS: ACETAMINOPHEN 325 MG TAB PO PRN (20:51)
[2019-12-17] VITALS (8 sets, daily range): BP systolic 100–126; BP diastolic 43–68
[2019-12-17] MEDS: ALBUTEROL SULFATE HFA 8GM INHALATION AEROSOL INH SCH ×6 (03:00→22:54)
[2019-12-17] MEDS: CEFEPIME 1GM/NS 0.9% 50 ML 50 ML IV SCH ×3 (05:08→21:54)
[2019-12-17] MEDS: LEVOTHYROXINE SODIUM 50 MCG TAB PO SCH (05:08)
[2019-12-17 05:25] LABS: BASOPHILS # (AUTO) 0.1 (0.0-0.1); BASOPHILS % 0.5 % (0.0-1.0); EOSINOPHILS % 0.3 % (0.0-6.0); HEMATOCRIT 38.2 % (34.2-44.1); HEMOGLOBIN 11.9 g/dL (12.0-16.0); LYMPHOCYTES # (AUTO) 1.7 (1.0-3.2); LYMPHOCYTES % 15.8 % (18.0-39.1); MEAN CORPUSCULAR HEMOGLOBIN 29.7 pg (28-32); MEAN CORPUSCULAR HGB CONC 31.2 g/dL (31-35); MEAN CORPUSCULAR VOLUME 95.3 fL (81-99); MONOCYTES # (AUTO) 1.1 (0.2-0.8); MONOCYTES % 9.9 % (4.4-11.3); NEUTROPHILS # (AUTO) 7.9 (2.1-6.9); NEUTROPHILS % 72.5 % (38.7-80.0); PLATELET COUNT 275 x10e3/uL (140-360); RED BLOOD COUNT 4.01 x10e6/uL (3.6-5.1); RED CELL DISTRIBUTION WIDTH 14.7 % (11.7-14.4)
[2019-12-17 05:52] LABS: ALANINE AMINOTRANSFERASE 26 IU/L (0-55); ALBUMIN 2.5 g/dL (3.5-5.0); ALBUMIN/GLOBULIN RATIO 0.7 (0.8-2.0); ALKALINE PHOSPHATASE 66 IU/L (40-150); ANION GAP 10.6 mmol/L (8-16); BLOOD UREA NITROGEN 14 mg/dL (7-26); BUN/CREATININE RATIO 21 (6-25); CALCIUM 8.2 mg/dL (8.4-10.2); CARBON DIOXIDE 27 mmol/L (22-29); CHLORIDE 106 mmol/L (98-107); CREATININE, SERUM 0.68 mg/dL (0.57-1.11); EST GLOMERULAR FILTRATION RATE > 60 ML/MIN (60-); GLUCOSE 79 mg/dL (74-118); MAGNESIUM 2.2 MG/DL (1.3-2.1); POTASSIUM 3.6 mmol/L (3.5-5.1); SODIUM 140 mmol/L (136-145)
--- NOTE | 2019-12-17 07:00 | NUR ---
RECEIVED BEDSIDE SHIFT REPORT FROM CNA CAREGIVER RN. PT DENIES NEEDS AT THIS TIME.
--- NOTE | 2019-12-17 07:28 | Diagnostic Imaging Report ---
Examination: Single AP view of the chest. COMPARISON: CT chest 12/16/2019 INDICATION: Respiratory failure IMPRESSION: 1. Lines and Tubes: Right-sided PICC line has distal tip projecting near the mid SVC. 2. No interval change in diffuse bilateral interstitial and alveolar opacities, worse in the right upper lobe and left lower lobe. 3. Cardiomediastinal silhouette is normal. Pulmonary vasculature is obscured. 4. No acute bony abnormalities. Signed by: Dr. Claude Sylvester M.D. on 12/17/2019 7:24 AM
[2019-12-17] MEDS: ZINC SULFATE 220 MG CAP NG SCH (08:42)
[2019-12-17] MEDS: ASCORBIC ACID 500 MG TAB NG SCH ×2 (08:42→16:18)
[2019-12-17] MEDS: CHOLECALCIFEROL 400 UNIT TAB PO SCH ×2 (08:42→16:18)
[2019-12-17] MEDS: ENOXAPARIN SOD INJ 40 MG/0.4 ML SYR SC SCH ×2 (08:42→20:20)
[2019-12-17] MEDS: FLUTICASONE PROPIONATE NASAL SPRAY NS SCH ×2 (08:42→16:18)
[2019-12-17] MEDS: GUAIFENESIN 600MG/DEXTROMETHORPHAN 30MG TABSR PO SCH ×2 (08:42→16:18)
[2019-12-17] MEDS: PANTOPRAZOLE SOD 40 MG TABEC PO SCH (08:42)
[2019-12-17] MEDS: MONTELUKAST SODIUM 10 MG TAB PO SCH (08:42)
[2019-12-17] MEDS: VANCOMYCIN 1GM/NS 250 ML 250 ML IV SCH ×2 (08:42→20:20)
--- NOTE | 2019-12-17 17:25 | Progress Note ---
DATE: SUBJECTIVE: The patient is having more trouble breathing. She is requiring additional oxygen. She is not complaining of chest pain or phlegm production. PHYSICAL EXAMINATION: VITAL SIGNS: The blood pressure is 123/52, saturation is 93%. The pulse is 89. HEENT: No facial swelling or erythema. CARDIAC: Regular rate and rhythm. Normal S1, S2. LUNGS: Auscultation of lungs reveals crackles at the bases. There is no wheezing. ABDOMEN: Soft, nontender. There is no rebound or guarding. EXTREMITIES: No leg edema or calf tenderness. There is no cyanosis or clubbing. SKIN: No rashes. NEUROLOGICAL: No focal abnormalities. LABORATORY DATA: White blood cell count is 10.9, hemoglobin is 11.9 and platelet count is 275. The BUN to creatinine ratio is normal. The other electrolytes within normal limits. Albumin is 2.5. RADIOGRAPHIC DATA: Chest x-ray shows bilateral infiltrates. IMPRESSION: 1. Coronavirus disease-19 and viral pneumonia. 2. Acute respiratory failure. 3. Asthma. PLAN: 1. ID is broaden the antibiotics. 2. Continue oxygen. 3. Continue bronchodilators. 4. Physical therapy. 5. Continue Lovenox. 6. The patient has completed Decadron. MD CALUS De La O/MARTITA /[id number]
--- NOTE | 2019-12-17 19:37 | NUR ---
Resumed care of patient. Patient currently awake and resting in bed after using BSC, high flow nasal cannula and NRB mask on at 10L. Vital signs stable, no s/s of distress at this time. Bed locked and in lowest position, side rails upx3, alarm on, call light placed within reach. All safety measures in place. Will continue to monitor.
[2019-12-17] MEDS: ALPRAZOLAM 0.5 MG TAB PO SCH (20:20)
[2019-12-17] MEDS: ACETAMINOPHEN 325 MG TAB PO PRN (22:45)
--- NOTE | 2019-12-17 22:54 | NUR ---
Patient found in bed with NC and NRB removed. O2 in 70s. Reapplied oxygen at 15L, O2 currently 92%. Instructed patient to keep NC and NRB on. Patient verbalized understanding.
[2019-12-18] VITALS (12 sets, daily range): BP systolic 98–137; BP diastolic 39–78
[2019-12-18] MEDS: ALBUTEROL SULFATE HFA 8GM INHALATION AEROSOL INH SCH ×6 (03:44→22:34)
[2019-12-18] MEDS: CEFEPIME 1GM/NS 0.9% 50 ML 50 ML IV SCH (05:23)
[2019-12-18] MEDS: LEVOTHYROXINE SODIUM 50 MCG TAB PO SCH (05:23)
[2019-12-18 06:00] LABS: BASOPHILS % 0.3 % (0.0-1.0); EOSINOPHILS # (AUTO) 0.1 (0.0-0.4); EOSINOPHILS % 0.5 % (0.0-6.0); HEMATOCRIT 37.1 % (34.2-44.1); HEMOGLOBIN 11.8 g/dL (12.0-16.0); LYMPHOCYTES # (AUTO) 1.7 (1.0-3.2); LYMPHOCYTES % 14.5 % (18.0-39.1); MEAN CORPUSCULAR HEMOGLOBIN 31.3 pg (28-32); MEAN CORPUSCULAR HGB CONC 31.8 g/dL (31-35); MEAN CORPUSCULAR VOLUME 98.4 fL (81-99); MONOCYTES # (AUTO) 1.2 (0.2-0.8); MONOCYTES % 10.5 % (4.4-11.3); NEUTROPHILS # (AUTO) 8.6 (2.1-6.9); NEUTROPHILS % 73.2 % (38.7-80.0); PLATELET COUNT 248 x10e3/uL (140-360); RED BLOOD COUNT 3.77 x10e6/uL (3.6-5.1); RED CELL DISTRIBUTION WIDTH 15.7 % (11.7-14.4)
[2019-12-18 06:38] LABS: ALANINE AMINOTRANSFERASE 23 IU/L (0-55); ALBUMIN 2.5 g/dL (3.5-5.0); ALBUMIN/GLOBULIN RATIO 0.7 (0.8-2.0); ALKALINE PHOSPHATASE 79 IU/L (40-150); ANION GAP 10.7 mmol/L (8-16); BLOOD UREA NITROGEN 11 mg/dL (7-26); BUN/CREATININE RATIO 16 (6-25); CALCIUM 8.5 mg/dL (8.4-10.2); CARBON DIOXIDE 27 mmol/L (22-29); CHLORIDE 106 mmol/L (98-107); CREATININE, SERUM 0.68 mg/dL (0.57-1.11); EST GLOMERULAR FILTRATION RATE > 60 ML/MIN (60-); GLUCOSE 78 mg/dL (74-118); POTASSIUM 3.7 mmol/L (3.5-5.1); SODIUM 140 mmol/L (136-145)
[2019-12-18] MEDS: ZINC SULFATE 220 MG CAP NG SCH (09:14)
[2019-12-18] MEDS: MONTELUKAST SODIUM 10 MG TAB PO SCH (09:14)
[2019-12-18] MEDS: ASCORBIC ACID 500 MG TAB NG SCH ×2 (09:14→17:33)
[2019-12-18] MEDS: FLUTICASONE PROPIONATE NASAL SPRAY NS SCH ×2 (09:14→17:33)
[2019-12-18] MEDS: PANTOPRAZOLE SOD 40 MG TABEC PO SCH (09:14)
[2019-12-18] MEDS: GUAIFENESIN 600MG/DEXTROMETHORPHAN 30MG TABSR PO SCH ×2 (09:14→17:33)
[2019-12-18] MEDS: CHOLECALCIFEROL 400 UNIT TAB PO SCH (09:14)
[2019-12-18] MEDS: VANCOMYCIN 1GM/NS 250 ML 250 ML IV SCH ×2 (09:15→20:50)
[2019-12-18] MEDS: ENOXAPARIN SOD INJ 40 MG/0.4 ML SYR SC SCH ×2 (09:15→20:50)
--- NOTE | 2019-12-18 13:19 | Progress Note ---
DATE: SUBJECTIVE: The patient is seen and evaluated, discussed with the nurse. The patient remains on 10 to 15 L of nasal cannula and non-rebreather. Saturation remains in the low to mid 90s. Easily awaken, no acute distress. Responds that "she is doing okay." PHYSICAL EXAMINATION: VITAL SIGNS: Temperature 100.2 at max, pulse 105, respirations 22, blood pressure 109/65. GENERAL: Alert and oriented, easily awake, in no acute distress, seems comfortable in bed, supine position, morbidly obese with BMI of 43.5. CV: S1-S2. CHEST: Equal expansion, decreased breath sounds, no acute distress. ABDOMEN: Soft, obese, nontender. HEENT: Moist. No pallor. No JVD. EXTREMITIES: Weak with arthritic changes of the digits. MEDICATIONS: The patient is on vancomycin IV, Lovenox, vitamin D, vitamin C, zinc sulfate, cefepime. LABORATORY STUDIES: White count of 11.69, hemoglobin 11.8, platelets 248,000. Sodium 140, potassium 3.7, creatinine 0.8. Vancomycin trough 13.2. Coronavirus PCR was detected on 12/02. Blood culture negative. RADIOLOGY STUDIES: No new chest x-ray. However, chest x-ray from yesterday 12/16 showed no interval change in diffuse bilateral interstitial and alveolar opacities, worse on the right upper lobe and left lower lobe. ASSESSMENT AND PLAN: 1. COVID-19 pneumonia. 2. Concerned superimposed bacterial pneumonia. 3. Respiratory failure status post extubation. 4. Aspiration pneumonia. 5. Multifocal pneumonia on a CT. 6. CT was negative for PE. LFTs within normal limit. We will change cefepime to meropenem. Continue with vancomycin. Vancomycin trough as above. Other medications as above. Please refer to chart for more information. Dictated by Soren Grady PA-C (Al) Swapna Carver MD /MODL /[id number]
[2019-12-18] MEDS: MEROPENEM 500MG/ NS 50ML 50 ML IV SCH ×2 (13:24→22:34)
--- NOTE | 2019-12-18 15:01 | Progress Note ---
DATE: Pulmonary Critical Care Progress Note SUBJECTIVE: The patient has more congestion and difficulty breathing. She is requiring oxygen at 15 L. The patient says she gets up and out of bed, but is not well documented. PHYSICAL EXAMINATION: VITAL SIGNS: The blood pressure is 109/65 and the saturation is 93%. The T-max is 100.2 and the pulse is 105. HEENT: Shows no facial swelling or erythema. LYMPHATIC: Shows no submandibular, cervical, or supraclavicular adenopathy. CARDIAC: Reveals regular rate and rhythm with normal S1 or S2. LUNGS: Auscultation of lungs reveals rhonchorous breath sounds bilaterally. There is no wheezing. ABDOMEN: Soft and nontender. There is no rebound or guarding. EXTREMITIES: Shows no leg edema or calf tenderness. No cyanosis or clubbing. SKIN: Shows no rashes. NEUROLOGICAL: Shows no focal abnormalities. LABORATORY DATA: White blood cell count is 11.7 and the hemoglobin is 11.8. The platelet count is 284. BUN to creatinine ratio is normal. The other electrolytes are within normal limits. The albumin is 2.5. IMPRESSION: 1. Viral pneumonia and COVID-19 infection. 2. Superimposed bacterial pneumonia. 3. Acute respiratory failure. 4. Viral hepatitis. PLAN: 1. Complete current antibiotics. 2. Incentive spirometry and flutter device with respiratory. The patient will also have a . 3. Repeat speech evaluation to check for aspiration. 4. Bronchodilators. 5. Physical therapy. 6. Continue Lovenox. 7. Out of bed as tolerated. Patrick Wren MD [facility] [place]/MODL /[id number]
[2019-12-18] MEDS: ALPRAZOLAM 0.5 MG TAB PO SCH (20:50)
--- NOTE | 2019-12-18 20:50 | NUR ---
PATIENT IN STABLE CONDITION, NOW RESTING IN BED. NASAL CANNULA AND REBREATHER MASK RUNNING AT 15 LITERS, PATENT AND FLOWING. IV ANTIBIOTICS ARE RUNNING AT ORDERED RATE AND PATIENT VOICES NO PAIN AT THIS TIME. O2 SATURATION IS WITHIN NORMAL RANGE. BED IS IN LOWEST POSITION, BOTH SIDE RAILS ARE UP, CALL LIGHT IS WITHIN EASY REACH, WILL CONTINUE TO MONITOR.
[2019-12-19] VITALS (10 sets, daily range): BP systolic 108–143; BP diastolic 45–82
[2019-12-19] MEDS: ALBUTEROL SULFATE HFA 8GM INHALATION AEROSOL INH SCH ×5 (03:44→20:12)
[2019-12-19] MEDS: MEROPENEM 500MG/ NS 50ML 50 ML IV SCH ×3 (06:32→21:41)
[2019-12-19] MEDS: LEVOTHYROXINE SODIUM 50 MCG TAB PO SCH (06:32)
--- NOTE | 2019-12-19 07:23 | Progress Note ---
DATE: 12/13/2019 ADDITIONAL ATTENDING PHYSICIAN: Derrick Mantilla MD. SUBJECTIVE: The patient is lying supine in bed. The patient still has a productive cough with some phlegm. She is awake, alert, but removes her oxygen at times. OBJECTIVE: VITAL SIGNS: Temperature 97.5, heart rate 77, blood pressure 108/62, respirations 20, oxygen saturation 94%. GENERAL: No acute distress. LUNGS: Bibasilar crackles. She is on 10 L of oxygen via high-flow nasal cannula. HEENT: EOMI. NECK: Supple. No JVD. CARDIOVASCULAR: Regular rate and rhythm. ABDOMEN: Bowel sounds positive. Soft, nontender. EXTREMITIES: Without pitting edema. No clubbing, cyanosis, or notable swelling. NEUROLOGICAL: No focal abnormalities. LABORATORY DATA: Sodium 141, potassium 4.7, chloride 107, CO2 of 26, BUN 30, creatinine 0.77, estimated GFR greater than 60, glucose 115. WBCs 12, hemoglobin 12.9, hematocrit 42, platelets 359, neutrophils 85.8%. Total bilirubin 0.5, AST 25, ALT 30, alkaline phosphatase 78. Vancomycin trough level 14.6. IMAGING: Chest x-ray today showed interval increase in extent of bilateral patchy consolidations compatible with worsening pneumonia. ASSESSMENT AND PLAN: 1. Coronavirus disease 2019 pneumonia with acute respiratory distress syndrome, status post extubation on 12/09/2019. She is now status post remdesivir, Rocephin, and azithromycin. Continue Lovenox and finish dexamethasone. Continue vitamin C and zinc sulfate. Physical therapy. 2. Asthma. Continue montelukast sodium. She remains on supplemental oxygen. Wean down oxygen as tolerated. 3. Transaminitis. AST 25 (31, 34). 4. Prophylaxis. Lovenox and Pepcid. 5. Billing code 33677. Time spent 35 minutes. Dictated by Toribio Hutchins, FABIÁN Derrick Mantilla MD [facility]/MODL /[id number]
--- NOTE | 2019-12-19 07:43 | Progress Note ---
DATE: 12/14/2019 ADDITIONAL ATTENDING PHYSICIAN: Derrick Mantilla MD. SUBJECTIVE: The patient is on 10 L/minute of oxygen this morning. She has been successfully weaned to 8 L/minute high-flow nasal cannula. She is getting out of bed with physical therapy. OBJECTIVE: VITAL SIGNS: Temperature 99.5, heart rate 90, blood pressure 133/67, respirations 18, and oxygen saturation 92%. GENERAL: She is asleep, supine. LUNGS: Bibasilar crackles. Oxygen at 8 L/minute high-flow nasal cannula with humidification with oxygen saturation 95% during encounter. HEENT: EOMI. NECK: Supple. No JVD. CARDIOVASCULAR: Regular rate and rhythm. No murmur. ABDOMEN: Bowel sounds positive. Soft, nontender, morbidly obese. EXTREMITIES: With no pitting edema. No clubbing or cyanosis. No marked swelling or signs of DVT. NEUROLOGICAL: GCS 13. Eyes 3, verbal 4, motor 6. Nonfocal. LABORATORY DATA: WBCs 11.91, hemoglobin 12.8, hematocrit 40.8, platelets 287. Sodium 142, potassium 4.6, chloride 109, CO2 of 26, anion gap 11.6, BUN 24, creatinine 0.74, estimated GFR greater than 60, glucose 121, calcium 8.6, total bilirubin 0.6, AST 21, ALT 28, alkaline phosphatase 75, total protein 6.6, albumin 2.9. Vancomycin trough level 17.7. No new imaging studies. ASSESSMENT AND PLAN: 1. COVID-19 pneumonia with acute respiratory distress syndrome. Continue dexamethasone, Lovenox, vitamin C, zinc sulfate. She is status post azithromycin, Rocephin and remdesivir, currently on vancomycin and cefepime per Infectious Disease. No longer on Levophed drip. 2. Asthma. Continue montelukast sodium. Wean supplemental oxygen as needed. 3. Morbid obesity with BMI of 43.35. Dietary restrictions. 4. Prophylaxis, Lovenox and Protonix. Billing code 55563. Time spent 35 minutes. Dictated by Toribio Hutchins NP Derrick Mantilla MD [facility]/MODL /[id number]
--- NOTE | 2019-12-19 08:23 | Progress Note ---
DATE: 12/15/2019 SUBJECTIVE: The patient is lying supine in bed. The patient has different blood pressures in each arm as reported by the nurse with right arm being 102/46 and left arm 94/44, heart rate 82, temperature 98.5. Denies diarrhea. No BM in a few days. OBJECTIVE: VITAL SIGNS: Temperature 98.1, heart rate 85, blood pressure 117/63, respirations 20, oxygen saturation 94%. GENERAL: Physical exam supine. LUNGS: With bibasilar crackles. She is currently on 15 L/minute high-flow oxygen with oxygen saturation 88%, respirations 28. If non-rebreather mask is added then her oxygen saturation climbs to 94%. HEENT: EOMI. NECK: Supple. CARDIOVASCULAR: Regular rate and rhythm. No murmur. ABDOMEN: Bowel sounds positive. Soft, nontender. EXTREMITIES: Without pitting edema. No clubbing, cyanosis, or marked swelling. NEUROLOGIC: Confused, nonfocal. LABORATORY DATA: WBC 11.18, hemoglobin 12.4, hematocrit 40.4, platelets 359. ABG was later obtained an hour or 2 after the patient left on 15 L/minute via high-flow oxygen. ABG collected about 02:25 in the morning on 12/15. PH 7.38, pCO2 of 45, PO2 of 46, HC03 of 27, oxygen saturation 81%, base excess of 1.0, FiO2 of 60%. ABG results to be called by Dr. Wren. Sodium 143, potassium 3.9, chloride 107, CO2 of 28, anion gap 11.9. BUN 19, creatinine 0.74, estimated GFR greater than 60, glucose 73, calcium 8.5, phosphorus 2.3, magnesium 2.4. Random vancomycin level 11.6. No new imaging studies. ASSESSMENT AND PLAN: 1. Multifocal pneumonia due to coronavirus disease 2019 with acute respiratory distress syndrome, status post extubation on 12/09/2019. Monitor pulmonary status closely. ABG results to be called to Dr. Wren. Continue dexamethasone, Lovenox, vitamin C, vitamin D, and zinc sulfate. Currently on cefepime and vancomycin. Monitor vancomycin trough levels. 2. Asthma. Continue montelukast sodium. Wean oxygen as tolerated. 3. Morbid obesity with BMI of 43.74. Dietary restriction. 4. Prophylaxis, Lovenox and Protonix. 5. Billing code 39264. Time spent, 35 minutes. Dictated by Toribio Hutchins, TALENT ACQUISITION OPERATIONS MANAGER MD LAYA Tabor/LIANEL /[id number]
[2019-12-19] MEDS: VANCOMYCIN 1GM/NS 250 ML 250 ML IV SCH ×2 (08:49→20:12)
[2019-12-19] MEDS: ZINC SULFATE 220 MG CAP NG SCH (10:31)
[2019-12-19] MEDS: ASCORBIC ACID 500 MG TAB NG SCH ×2 (10:31→17:32)
[2019-12-19] MEDS: FLUTICASONE PROPIONATE NASAL SPRAY NS SCH ×2 (10:31→17:32)
[2019-12-19] MEDS: MONTELUKAST SODIUM 10 MG TAB PO SCH (10:32)
[2019-12-19] MEDS: GUAIFENESIN 600MG/DEXTROMETHORPHAN 30MG TABSR PO SCH ×2 (10:32→17:32)
[2019-12-19] MEDS: CHOLECALCIFEROL 400 UNIT TAB PO SCH (10:32)
[2019-12-19] MEDS: PANTOPRAZOLE SOD 40 MG TABEC PO SCH (10:32)
--- NOTE | 2019-12-19 13:00 | NUR ---
DR WILCOX AT BEDSIDE WITH PATIENT. ORDERED TO TRANSFER TO ICU FOR VAPOTHERM. NURSE KICK PRESS OPERATOR NOTIFIED.
--- NOTE | 2019-12-19 15:06 | Progress Note ---
DATE: Pulmonary Critical Care Progress Note SUBJECTIVE: The patient is feeling more fatigued. She is having increased dyspnea. She has some low-grade fevers to 99.5. She notes some cough. PHYSICAL EXAMINATION: VITAL SIGNS: The blood pressure is 127/47. The respiratory rate is 30. HEENT: No facial swelling or erythema. CARDIAC: Regular rate and rhythm with normal S1, S2. LUNGS: Auscultation of lungs reveals rhonchorous breath sounds bilaterally. There is no wheezing. ABDOMEN: Soft, nontender. There is no rebound or guarding. EXTREMITIES: No leg edema or calf tenderness. There is no cyanosis or clubbing. SKIN: No rashes. LABORATORY DATA: White blood cell count is 11.7, hemoglobin is 11.8. The platelet count is 248. BUN to creatinine ratio is normal. The other electrolytes are within normal limits. The albumin is 2.5. Radiographic data shows diffuse bilateral infiltrates. IMPRESSION: 1. Acute on chronic respiratory failure. 2. Viral pneumonia and coronavirus disease-19 infection. 3. Superimposed bacterial pneumonia. 4. Viral hepatitis. PLAN: 1. Restart Vapotherm. 2. Transfer to intensive care unit. 3. Continue vancomycin and meropenem for superimposed bacterial pneumonia. 4. Continue Lovenox. 5. Encourage the patient is set up and use incentive spirometry. Case discussed with nursing staff, Respiratory, Infectious Disease, and administration. Greater than 35 minutes in direct critical care time. MD CLAUS De La O/MARTITA /[id number]
--- NOTE | 2019-12-19 16:30 | NUR ---
Follow up Note RD Recommendation(s) for Physician: - Continue regular diet - If PO intake is <50% of meals, offer Ensure Compact. Plan of Care: RD following, monitoring for tolerance and adequacy Nutrition reason for involvement: follow up RD Assessment 12/18: Follow up. Chart reviewed. Last recorded meal intake amount was 25-100% on 12/16. MD note indicates pt is feeling more fatigued and increased dyspnea. If PO intake is <50% of meals, offer Ensure Compact. Will continue to monitor. 12/14: Follow up. Pt is primarily Tajik speaking per chart. Pt is now on a regular diet with 50-100% meal intake recorded the past 3 days. Speech therapy note on 12/11, indicates pt is tolerating diet consistency. Will continue to monitor. 12/09: Follow up. Pt off sedation and extubated. ACCORDION REPAIRER evaluation for po/diet safety pending. Pt continues on Levophed. Chart reviewed. Diet and TF rec's provided. Will continue to monitor. (12/05/19) Pt is a 64 year old female admitted with acute respiratory failure. Pt is COVID+ and is currently intubated. Pt currently has an order for tube feeding. Pt is receiving propofol at 37.3 mL/hr per documentation which provides 985 kcal. Unable to obtain nutrition history at this time. Recommendations provided. Will continue to monitor. Principal Problems/Diagnoses: acute respiratory failure PMH: asthma, hypothyroid GI: last recorded BM 12/17 Skin: no pressure ulcers noted Labs: 12/17: Na 140, K 3.7, BUN 11, Cr 0.68, Glu 78, Ca 8.5 12/14: Na 143, K 3.9, BUN 19, Cr 0.74, Glu 73, Mg 2.4 12/09: Na 145, K 4.4, BUN 34, Cr 0.87, Gluc 126 (12/04) Na 142, K 3.9, BUN 13, Cr 0.89, Glu 124, Ca 7.9, AST 36 Meds: antibiotics, vitamin D, vitamin C, levothyroxine, zinc sulfate, zofran Ht: 60 inches Wt: 222 lbs (12/16) 224 lbs (12/14) 228 lbs (12/04) BMI: 43.5 kg/m2 IBW: 100 lbs Malnutrition Evaluation (7/3/20) Unable to assess. Will re-evaluate at follow-up as appropriate. Nutrition Prescription (Diet Order): Regular Estimated Nutritional Needs: [id number] calories/day (22-25 kcal/kg IBW) 68-90 g protein/day (1.5-2 g pro/kg IBW) Diet Adequacy: Last recorded meal intake amount was 25-100% on 12/16 Tolerance: unable to assess at this time Diet Education Needs Assessment: Diet education not indicated at this time. Nutrition Care Level: moderate Nutrition Diagnosis: Inadequate oral intake related to acute respiratory failure/mechanical ventilation as evidenced by pt requiring enteral nutrition (RESOLVED PT IS NO LONGER INTUBATED) Goal: Patient will meet 75-100% of estimated needs by follow up Progress: progressing Interventions: -General healthful diet Monitoring/Evaluation: -Total energy intake, Total protein intake, Weight change Signed: Corinna Aviles RD, MANDY
--- NOTE | 2019-12-19 16:47 | Progress Note ---
DATE: SUBJECTIVE: Remains short of breath. This is day #15 of her hospitalization. OBJECTIVE: VITAL SIGNS: Stable, currently afebrile. The patient is on 15 L high flow. HEENT: Normocephalic. NECK: Supple. CHEST: Few rhonchi bilateral. HEART: S1-S2. No murmurs. ABDOMEN: Soft. LABORATORY DATA: White count 11, hemoglobin 12, and platelet count 59. Sodium 140, potassium 3.7, and creatinine 0.8. IMPRESSION: 1. Respiratory failure, concerned about the patient, she may be aspirating. She is too weak. 2. Status post coronavirus disease-19. 3. Asthma. 4. Morbidly obese patient. Currently on meropenem, Tylenol, Protonix, and vancomycin. We will get vancomycin level CT scan done on 12/15. Continue with antibiotic as ordered. Continue supportive care. Concern she may end up back on the ventilator. We will follow. MD ANGEL Zamorano/MODL /[id number]
[2019-12-19] MEDS: ENOXAPARIN SOD INJ 60 MG/0.6 ML SYR SC SCH (20:12)
--- NOTE | 2019-12-19 20:15 | NUR ---
PATIENT IN STABLE CONDITION, NOW RESTING IN BED. NASAL CANNULA AND REBREATHER MASK RUNNING AT 15 LITERS, PATENT AND FLOWING. PATIENT NOW ON VAPOTHERM. IV ANTIBIOTICS ARE RUNNING AT ORDERED RATE AND PATIENT VOICES NO PAIN AT THIS TIME. O2 SATURATION IS WITHIN NORMAL RANGE. BED IS IN LOWEST POSITION, BOTH SIDE RAILS ARE UP, CALL LIGHT IS WITHIN EASY REACH, WILL CONTINUE TO MONITOR.
[2019-12-20] VITALS (23 sets, daily range): BP systolic 42–134; BP diastolic 25–75
[2019-12-20] MEDS: ALBUTEROL SULFATE HFA 8GM INHALATION AEROSOL INH SCH ×7 (00:26→23:00)
--- NOTE | 2019-12-20 01:20 | NUR ---
PATIENT SUCCESSFULLY TRANSFERRED TO ICU SAFELY. RESPIRATORY PROVIDED HELP WITH VAPOTHERM MACHINE AND REPORT WAS GIVEN TO ICU NURSE. PATIENT IN STABLE CONDITION.
[2019-12-20] MEDS: MEROPENEM 500MG/ NS 50ML 50 ML IV SCH ×3 (05:54→22:40)
[2019-12-20 05:56] LABS: BASOPHILS # (AUTO) 0.1 (0.0-0.1); BASOPHILS % 0.4 % (0.0-1.0); EOSINOPHILS % 0.1 % (0.0-6.0); HEMATOCRIT 40.5 % (34.2-44.1); HEMOGLOBIN 12.1 g/dL (12.0-16.0); LYMPHOCYTES # (AUTO) 1.4 (1.0-3.2); LYMPHOCYTES % 8.4 % (18.0-39.1); MEAN CORPUSCULAR HEMOGLOBIN 28.6 pg (28-32); MEAN CORPUSCULAR HGB CONC 29.9 g/dL (31-35); MEAN CORPUSCULAR VOLUME 95.7 fL (81-99); MONOCYTES # (AUTO) 1.7 (0.2-0.8); NEUTROPHILS # (AUTO) 13.3 (2.1-6.9); NEUTROPHILS % 80.4 % (38.7-80.0); PLATELET COUNT 281 x10e3/uL (140-360); RED BLOOD COUNT 4.23 x10e6/uL (3.6-5.1); RED CELL DISTRIBUTION WIDTH 15.1 % (11.7-14.4)
[2019-12-20] MEDS: LEVOTHYROXINE SODIUM 50 MCG TAB PO SCH (06:00)
[2019-12-20 06:25] LABS: ALANINE AMINOTRANSFERASE 19 IU/L (0-55); ALBUMIN 2.3 g/dL (3.5-5.0); ALBUMIN/GLOBULIN RATIO 0.5 (0.8-2.0); ALKALINE PHOSPHATASE 96 IU/L (40-150); ANION GAP 13.2 mmol/L (8-16); BLOOD UREA NITROGEN 8 mg/dL (7-26); BUN/CREATININE RATIO 12 (6-25); CALCIUM 8.5 mg/dL (8.4-10.2); CARBON DIOXIDE 28 mmol/L (22-29); CHLORIDE 101 mmol/L (98-107); CREATININE, SERUM 0.66 mg/dL (0.57-1.11); EST GLOMERULAR FILTRATION RATE > 60 ML/MIN (60-); GLUCOSE 92 mg/dL (74-118); POTASSIUM 4.2 mmol/L (3.5-5.1); SODIUM 138 mmol/L (136-145)
[2019-12-20] MEDS: FLUTICASONE PROPIONATE NASAL SPRAY NS SCH ×2 (09:00→17:00)
[2019-12-20] MEDS ORDERED: SODIUM CHLORIDE 0.9% 250ML 250 ML ONE (09:11)
[2019-12-20] MEDS: GUAIFENESIN 600MG/DEXTROMETHORPHAN 30MG TABSR PO SCH (09:54)
[2019-12-20] MEDS: ZINC SULFATE 220 MG CAP NG SCH (09:54)
[2019-12-20] MEDS: CHOLECALCIFEROL 400 UNIT TAB PO SCH (09:54)
[2019-12-20] MEDS: ASCORBIC ACID 500 MG TAB NG SCH (09:54)
[2019-12-20] MEDS: MONTELUKAST SODIUM 10 MG TAB PO SCH (09:54)
[2019-12-20] MEDS: ENOXAPARIN SOD INJ 60 MG/0.6 ML SYR SC SCH (09:54)
[2019-12-20] MEDS: VANCOMYCIN 1GM/NS 250 ML 250 ML IV SCH ×2 (09:55→21:00)
[2019-12-20] MEDS: PANTOPRAZOLE SOD 40 MG TABEC PO SCH (09:55)
[2019-12-20 10:40] LABS: BAND NEUTROPHILS % (MANUAL) 3 %; LYMPHOCYTES % (MANUAL) 8 % (19-48); MONOCYTES % (MANUAL) 10 % (3.4-9.0); NEUTROPHILS % (MANUAL) 79 % (40-74)
[2019-12-20 10:41] LABS: PLATELET ESTIMATE ADEQUATE; PLATELET MORPHOLOGY COMMENT NORMAL; RBC MORPHOLOGY COMMENT NORMAL
--- NOTE | 2019-12-20 10:50 | Diagnostic Imaging Report ---
EXAMINATION: CHEST SINGLE (PORTABLE) INDICATION: ^COVID COMPARISON: Chest x-ray dated 12/17/2019. FINDINGS: AP view TUBES and LINES: There is a right-sided PICC line in place with distal tip in SVC. LUNGS/PLEURA: There are bilateral patchy opacities could represent multifocal pneumonia, slightly worsened from prior exam. There are increased bibasilar opacity which could be due to effusion and/or atelectasis. HEART AND MEDIASTINUM: The cardiomediastinal silhouette is unremarkable. BONES AND SOFT TISSUES: No acute osseous lesion. Soft tissues are unremarkable. UPPER ABDOMEN: No free air under the diaphragm. IMPRESSION: Bilateral patchy opacities compatible with multifocal pneumonia, slightly worsened from prior exam. Increased bibasilar opacity which could be due to effusion and/or atelectasis. Signed by: Soren Eng MD on 12/20/2019 10:46 AM
[2019-12-20] MEDS ORDERED: METHYLPREDNISOLONE SOD SUCC 125 MG/2ML VIAL IV ONE (11:45)
[2019-12-20] MEDS ORDERED: DEXMEDETOMIDINE 200MCG/NS 50ML 50 ML IV ONE ×2 (11:48→14:17)
--- NOTE | 2019-12-20 12:15 | Progress Note ---
DATE: Pulmonary Critical Care Progress Note SUBJECTIVE: The patient is currently in the intensive care unit. She is having some desaturations, on Vapotherm of 40 L with 100% FiO2. A non-rebreather was placed over the top and she was placed in the prone position. Her saturations have improved to 90%. PHYSICAL EXAMINATION: VITAL SIGNS: Blood pressure is 127/50, heart rate is 110 to 120, respiratory rate is in the high 20s, and saturation is now 88%. HEENT: Shows no facial swelling or erythema. The patient has a Vapotherm on. LYMPHATIC: Shows no submandibular, cervical, or supraclavicular adenopathy. CARDIAC: Reveals regular rate and rhythm with normal S1 and S2. LUNGS: Auscultation of lungs reveals no wheezing in both lung hurt. There are no crackles. ABDOMEN: Soft and nontender. There is no rebound or guarding. EXTREMITIES: Shows no leg edema or calf tenderness. There is no cyanosis or clubbing. SKIN: Shows no rashes. NEUROLOGIC: Shows no focal abnormalities. LABORATORY DATA: BUN to creatinine ratio is normal. The white blood cell count is 2.3. The hemoglobin is 16.4 and the white blood cell count is 12.1. The platelet count is 281. RADIOGRAPHIC DATA: Shows patchy bilateral opacities compatible with multifocal pneumonia. IMPRESSION: 1. Acute respiratory failure. 2. Bacterial pneumonia superimposed on COVID-19. 3. Viral pneumonia and COVID-19 infection. 4. Viral hepatitis. 5. Asthma. PLAN: 1. The patient will receive Solu-Medrol now along with continued bronchodilators. 2. Continue to place the patient in prone position with Vapotherm and non-rebreather. 3. Continue Merrem and vancomycin. 4. Continue Lovenox. 5. Precedex as needed. 6. Case discussed with nightshift nursing, dayshift nursing, administration, Respiratory, Infectious Disease, and Internal Medicine. Greater than 35 minutes in direct critical care time. Patrick Wren MD [facility]/LIANEL /[id number]
[2019-12-20] MEDS ORDERED: MIDAZOLAM HCL 50 MG in SODIUM CHLORIDE 0.9% 100 ML 90 ML IV PRN (13:00)
[2019-12-20] MEDS ORDERED: FENTANYL CITRATE INJ 2,000 MCG in SODIUM CHLORIDE 0.9% 250ML 210 ML IV PRN (13:00)
[2019-12-20] MEDS ORDERED: MIDAZOLAM HCL 5MG/ML 10ML VIAL 100 ML IV ONE (13:03)
[2019-12-20] MEDS ORDERED: FENTANYL 2000MCG/NS 250 250 ML ONE (13:03)
--- NOTE | 2019-12-20 13:26 | Operative Report ---
DATE OF PROCEDURE: SURGEON: Patrick Wren MD PREOPERATIVE DIAGNOSIS: Respiratory failure. POSTOPERATIVE DIAGNOSIS: Respiratory failure. CONSENT: Consent was obtained from the family. MEDICATIONS: Versed 1 mg IV, etomidate 20 mg, and succinylcholine 100 mg. DESCRIPTION OF PROCEDURE: The patient was placed in a supine position. She was preoxygenated with a Vapotherm and a non-rebreather, followed by Ambu bag. A 3.0 blade was used to visualize the glottis. A 7.5 endotracheal tube was passed through the glottis on the first attempt. There was good CO2 return. There were equal breath sounds bilaterally. ESTIMATED BLOOD LOSS: None. COMPLICATIONS: None. Patrick Wren MD [facility]/MODL /[id number]
--- NOTE | 2019-12-20 13:58 | Diagnostic Imaging Report ---
EXAMINATION: CHEST SINGLE (PORTABLE) INDICATION: NEW INTUBATION, COVID COMPARISON: Multiple prior chest x-ray examinations most recent performed earlier same day.. FINDINGS: AP view TUBES and LINES: There is a new endotracheal tube in place with distal tip at the level of bethanie. Recommend 3 cm retraction. There is NG tube in place with distal tip beyond the confines of this exam. There is a right-sided PICC line in place with distal tip in SVC. LUNGS/PLEURA: There are bilateral patchy opacities compatible with multifocal pneumonia, unchanged.. There is no pleural effusion or pneumothorax. HEART AND MEDIASTINUM: The cardiomediastinal silhouette is unremarkable. BONES AND SOFT TISSUES: No acute osseous lesion. Soft tissues are unremarkable. UPPER ABDOMEN: No free air under the diaphragm. IMPRESSION: 1. New endotracheal tube in place with distal tip at the level of bethanie. Recommend 3 cm retraction. 2. Unchanged bilateral patchy opacities compatible with multifocal pneumonia. Signed by: Soren Eng MD on 12/20/2019 1:54 PM
[2019-12-20] MEDS ORDERED: NOREPINEPHRINE 8 MG/D5W 250 ML 250 ML ONE (14:03)
[2019-12-20] MEDS ORDERED: LACTATED RINGER'S 1,000 ML ONE (14:05)
[2019-12-20] MEDS ORDERED: LIDOCAINE HCL 2% LOCAL 20 ML VIAL ONE (14:39)
[2019-12-20 14:58] LABS: ABG HCO3 26 mmol/L (22-26); ABG PCO2 37 mmHg (35-45); ABG PH 7.43 (7.35-7.45); ABG PO2 53 mmHg (80-105)
--- NOTE | 2019-12-20 14:58 | Diagnostic Imaging Report ---
EXAMINATION: CHEST SINGLE (PORTABLE) INDICATION: change in status COMPARISON: Multiple prior chest x-ray examinations most recent performed earlier same day.. FINDINGS: AP view TUBES and LINES: The endotracheal tube has been retracted with now its tip 4.3 cm above the bethaine. There is NG tube in place with distal tip beyond the confines of this exam. There is a right-sided PICC line in place with distal tip in SVC. LUNGS/PLEURA: There are bilateral patchy opacities compatible with multifocal pneumonia, unchanged.. There is persistent obscuration of the left hemidiaphragm which could be due to effusion and or atelectasis. There is a new large right-sided pneumothorax. HEART AND MEDIASTINUM: The cardiomediastinal silhouette is obscured by adjacent opacities. BONES AND SOFT TISSUES: No acute osseous lesion. Soft tissues are unremarkable. UPPER ABDOMEN: No free air under the diaphragm. IMPRESSION: 1. New large right-sided pneumothorax. 2. The endotracheal tube has been retracted with now its tip 4.3 cm above the bethanie in appropriate position. 3. Unchanged bilateral patchy opacities compatible with multifocal pneumonia. Dr. Wren caring for patient is aware of this finding. Signed by: Soren Eng MD on 12/20/2019 2:55 PM
--- NOTE | 2019-12-20 15:36 | Operative Report ---
DATE OF PROCEDURE: SURGEON: Patrick Wren MD PROCEDURE: Surgical chest tube placement. PREOPERATIVE DIAGNOSIS: Pneumothorax. POSTOPERATIVE DIAGNOSIS: Pneumothorax. CONSENT: Procedure was deemed emergent due to poor oxygen saturations and hemodynamic instability. MEDICATIONS: 1% lidocaine for local anesthesia. PROCEDURE IN DETAIL: The right lateral chest wall was prepped sterilely with chlorhexidine. Sterile drapes, sterile gown, and mask were also used. The area of the 6th intercostal space in the mid axillary line was prepped sterilely with chlorhexidine. A 1% lidocaine was used for local anesthesia. A 3 cm incision was made. Hemostats were used for blunt dissection down to the parietal pleura. Long Kellys were then used to enter the pleural space to the parietal pleura over the superior aspect of the 6th rib. There was a large gush of air and a 20-Upper Sorbian chest tube was then placed through the 6th intercostal space into the pleural cavity and it was connected to a Pleur-evac. COMPLICATIONS: None. ESTIMATED BLOOD LOSS: None. Patrick Wren MD [facility] /[id number]
--- NOTE | 2019-12-20 17:03 | Diagnostic Imaging Report ---
EXAMINATION: CHEST SINGLE (PORTABLE) INDICATION: S/P chest tube placement COMPARISON: Multiple prior chest x-ray examinations most recent performed earlier same day.. FINDINGS: AP view TUBES and LINES: The endotracheal tube has tip 4.3 cm above the behtanie. There is NG tube in place with distal tip beyond the confines of this exam. There is a right-sided PICC line in place with distal tip in SVC. There is a new right-sided chest tube with distal tip toward the right apex. LUNGS/PLEURA: There are bilateral patchy opacities compatible with multifocal pneumonia, unchanged.. There is persistent obscuration of the left hemidiaphragm which could be due to effusion and or atelectasis. Status post placement of new right-sided chest tube with near-complete resolution of the previously seen large right-sided pneumothorax. HEART AND MEDIASTINUM: The cardiomediastinal silhouette is obscured by adjacent opacities. BONES AND SOFT TISSUES: No acute osseous lesion. Soft tissues are unremarkable. UPPER ABDOMEN: No free air under the diaphragm. IMPRESSION: 1. Status post placement of new right-sided chest tube with near-complete resolution of the previously seen large right-sided pneumothorax. 2. Unchanged bilateral patchy opacities compatible with multifocal pneumonia. Signed by: Soren Eng MD on 12/20/2019 4:59 PM
--- NOTE | 2019-12-20 17:47 | Progress Note ---
DATE: SUBJECTIVE: Ms. Cook was transferred to the intensive care unit and intubated. She was having a chest tube for pneumothorax. The patient is currently in intensive care unit. Case was discussed with the medical team. She is intubated. OBJECTIVE: VITAL SIGNS: Her blood pressure 120/50, heart rate 110. HEENT: She is not icteric. NECK: Supple. CHEST: Crackles. LABORATORY DATA: Reviewed. White count is 16.8, hemoglobin 12. Sodium 130, potassium 4.2 with creatinine 0.66. IMPRESSION: She is on vancomycin since December 11. She is on meropenem since December 17. Will continue with Lovenox as ordered. Obtain sputum for cultures and is being intubated and concerned about health-care associated aspiration pneumonia. Recommendation, we will follow. MD ANGEL Zamorano/MARTITA /[id number]
--- NOTE | 2019-12-20 19:52 | NUR ---
The patient received in bed on Vapotherm @ 40 LPM @ 100%, she was very restless and anxious, saturation levels dropped to the low 80's attempted to prone the patient she continued to remove the equipment, and was not able to maintain the proned position for any period to time that it would be beneficial to her. Ms. Austin became increasingly tachypneic and around 1255 pm she was successfully intubated. After intubation the saturation levels continued to fall, her heart rate drooped into the 40's. Stat chest xray confirmed the presence of a pneumothorax. A chest tube was then placed at the bedside and the patient's saturation levels began to recover. During that episode the patient became hemodynamically unstable and levophed was initiated at 5 mcg/kg/hr, and she received a bolus of 1 liter on NS. The patient responded well to the intervention. Spoke with the patient's son and updated him on her condition.
[2019-12-20] MEDS: ENOXAPARIN SOD INJ 40 MG/0.4 ML SYR SC SCH (21:00)
[2019-12-21] VITALS (25 sets, daily range): BP systolic 91–170; BP diastolic 44–73
[2019-12-21] MEDS ORDERED: NOREPINEPHRINE 8 MG/D5W 250 ML 250 ML ONE ×3 (00:35→20:13)
[2019-12-21] MEDS: NOREPINEPHRINE INJ 4MG/4ML 8 MG in DEXTROSE 5% 250ML 242 ML IV SCH ×2 (00:37→21:09)
[2019-12-21] MEDS: MIDAZOLAM HCL 5MG/ML 10ML VIAL 100 ML IV PRN ×3 (00:42→21:10)
[2019-12-21] MEDS ORDERED: FENTANYL CITRATE INJ 2,000 MCG in SODIUM CHLORIDE 0.9% 250ML 210 ML IV PRN ×2 (00:45→01:15)
[2019-12-21] MEDS: ALBUTEROL SULFATE HFA 8GM INHALATION AEROSOL INH SCH ×6 (03:00→23:00)
[2019-12-21 03:54] LABS: ABG HCO3 23 mmol/L (22-26); ABG PCO2 37 mmHg (35-45); ABG PH 7.41 (7.35-7.45); ABG PO2 52 mmHg (80-105)
[2019-12-21 05:27] LABS: BASOPHILS % 0.2 % (0.0-1.0); HEMATOCRIT 36.9 % (34.2-44.1); HEMOGLOBIN 11.7 g/dL (12.0-16.0); LYMPHOCYTES # (AUTO) 0.7 (1.0-3.2); LYMPHOCYTES % 3.7 % (18.0-39.1); MEAN CORPUSCULAR HEMOGLOBIN 29.9 pg (28-32); MEAN CORPUSCULAR HGB CONC 31.7 g/dL (31-35); MEAN CORPUSCULAR VOLUME 94.4 fL (81-99); MONOCYTES # (AUTO) 0.7 (0.2-0.8); MONOCYTES % 3.9 % (4.4-11.3); NEUTROPHILS # (AUTO) 16.2 (2.1-6.9); NEUTROPHILS % 91.4 % (38.7-80.0); PLATELET COUNT 303 x10e3/uL (140-360); RED BLOOD COUNT 3.91 x10e6/uL (3.6-5.1); RED CELL DISTRIBUTION WIDTH 14.4 % (11.7-14.4)
[2019-12-21] MEDS: LEVOTHYROXINE SODIUM 50 MCG TAB PO SCH (06:14)
[2019-12-21] MEDS: MEROPENEM 500MG/ NS 50ML 50 ML IV SCH ×3 (06:14→20:55)
[2019-12-21 06:33] LABS: ALBUMIN 2.2 g/dL (3.5-5.0); ALBUMIN/GLOBULIN RATIO 0.5 (0.8-2.0); ANION GAP 16.9 mmol/L (8-16); CALCIUM 8.1 mg/dL (8.4-10.2); CREATININE, SERUM 1.14 mg/dL (0.57-1.11); POTASSIUM 3.9 mmol/L (3.5-5.1)
[2019-12-21] MEDS: FLUTICASONE PROPIONATE NASAL SPRAY NS SCH ×2 (08:15→15:07)
[2019-12-21] MEDS: VANCOMYCIN 1GM/NS 250 ML 250 ML IV SCH ×2 (08:21→20:55)
[2019-12-21] MEDS: ENOXAPARIN SOD INJ 40 MG/0.4 ML SYR SC SCH ×2 (08:22→20:55)
[2019-12-21] MEDS: PANTOPRAZOLE 40 MG 10ML VIAL IV SCH (08:22)
[2019-12-21] MEDS: CHOLECALCIFEROL 400 UNIT TAB PO SCH (08:22)
--- NOTE | 2019-12-21 08:31 | Diagnostic Imaging Report ---
EXAMINATION: CHEST SINGLE (PORTABLE) INDICATION: viral pneumonia COMPARISON: Multiple prior chest x-ray examinations most recent dated 12/20/2019. FINDINGS: AP view TUBES and LINES: The endotracheal tube has tip 4.3 cm above the bethanie. There is NG tube in place with distal tip beyond the confines of this exam. There is a right-sided PICC line in place with distal tip in SVC. There is a right-sided chest tube with distal tip toward the right apex. LUNGS/PLEURA: There are bilateral patchy opacities compatible with multifocal pneumonia, unchanged.. There is persistent obscuration of the left hemidiaphragm which could be due to effusion and or atelectasis. Small residual right-sided pneumothorax. HEART AND MEDIASTINUM: The cardiomediastinal silhouette is obscured by adjacent opacities. BONES AND SOFT TISSUES: No acute osseous lesion. Soft tissues are unremarkable. UPPER ABDOMEN: No free air under the diaphragm. IMPRESSION: 1. Unchanged bilateral patchy opacities compatible with multifocal pneumonia. 2. Small residual right pneumothorax. Signed by: Soren Eng MD on 12/21/2019 8:27 AM
[2019-12-21 08:46] LABS: ABG HCO3 26 mmol/L (22-26); ABG PCO2 39 mmHg (35-45); ABG PH 7.43 (7.35-7.45); ABG PO2 56 mmHg (80-105)
[2019-12-21] MEDS: FENTANYL 2000MCG/NS 250 250 ML IV PRN ×2 (11:45→21:09)
[2019-12-21] MEDS ORDERED: LACTATED RINGER'S 500 ML INJ ONE (13:45)
[2019-12-21] MEDS ORDERED: HEPARIN SOD/SOD CHLORIDE 1,000 ML IV STA (14:50)
--- NOTE | 2019-12-21 15:50 | Progress Note ---
DATE: Pulmonary Critical Care Progress Note SUBJECTIVE: The patient required intubation yesterday. She also had a pneumothorax and had a right-sided chest tube placed. The patient remains on Versed and fentanyl. She is on a PRVC at a rate of 30 with a tidal volume of 360 and FiO2 of 85%. PEEP is set at 18. PHYSICAL EXAMINATION: VITAL SIGNS: The patient is afebrile. The blood pressure is 128/63, saturation is 100% on the above settings. HEENT: No facial swelling or erythema. There is no oral endotracheal tube. There is a PICC line in place. CARDIAC: Regular rate and rhythm with normal S1 and S2. Auscultation of the lungs reveals crackles at the bases. There is no wheezing. There is a right-sided chest tube in place. There is no air leak. ABDOMEN: soft, nontender. There is no rebound or guarding. EXTREMITIES: No leg edema or calf tenderness. There is no cyanosis or clubbing. SKIN: No rashes. NEUROLOGICAL: No focal abnormalities. LABORATORY DATA: White blood cell count is 17.7, hemoglobin is 11.7, platelet count is 303,000. BUN to creatinine ratio is 16 to 1.18. Other electrolytes are within normal limits and the albumin is 2.2. IMPRESSION: 1. Acute respiratory failure. 2. Bacterial pneumonia superimposed on COVID-19 infection. 3. Viral pneumonia. 4. Viral hepatitis. 5. Asthma. 6. Right-sided pneumothorax. PLAN: 1. Continue to wean oxygen. 2. Continue current antibiotics for possible superimposed bacterial pneumonia. 3. Continue Lovenox. 4. Continue Versed and fentanyl. 5. Enteral feedings. 6. Case discussed with nightshift nursing, dayshift nursing, Respiratory, Internal Medicine and Infectious Disease. Greater than 35 minutes in direct critical care time apart from any procedures performed. Patrick Wren MD [facility] /[id number]
--- NOTE | 2019-12-21 17:31 | Operative Report ---
DATE OF PROCEDURE: SURGEON: Patrick Wren MD PROCEDURE: Arterial line placement under ultrasound guidance. PREOPERATIVE DIAGNOSIS: Respiratory failure. POSTOPERATIVE DIAGNOSIS: Respiratory failure. CONSENT: Consent was obtained from the family. MEDICATIONS: The patient was on Versed and fentanyl at the time of the procedure. PROCEDURE IN DETAIL: The right wrist was prepped sterilely with chlorhexidine. Sterile drape was used. Sterile mask and sterile gloves were also used. An ultrasound machine was used with a sterile probe cover to locate the right radial artery. The radial artery was cannulated under direct visualization with a 20-gauge needle. A wire was passed through the needle and the catheter was passed over the wire by the Seldinger technique. There was good blood return and a normal arterial waveform. COMPLICATIONS: None. ESTIMATED BLOOD LOSS: None. Patrick Wren MD [facility] /[id number]
--- NOTE | 2019-12-21 18:15 | NUR ---
Patient received in bed, vent dependent via ETT, Vent set to PRVC mode, settings at present 85% Fio2/P-18/R-30/TV-360. Oxygen saturation remains in the upper 90's. Pt remains on fentanyl and versed for sedation and levophed @ 1 mcg/kg/hr for hemodynamic support. Chest tube in situ to right upper chest 20 ml output noted for this shift. Right radial arterial line placed at the bedside, leveled, zeroed and flushed without issues. Good waveform noted on the monitor. Tube feeds started as ordered, no residuals noted, pt tolerating well, no vomiting seen. HOB elevated, aspiration precautions maintained, call mccloud within reach. Continuous cardiac and respiratory monitoring remains in progress. Spoke with pt son, updated on her condition.
[2019-12-21 21:57] LABS: ABG PCO2 40 mmHg (35-45); ABG PH 7.45 (7.35-7.45)
[2019-12-21 21:58] LABS: ABG HCO3 28 mmol/L (22-26); ABG PO2 60 mmHg (80-105)
[2019-12-22] VITALS (26 sets, daily range): BP systolic 94–147; BP diastolic 45–66
[2019-12-22] MEDS: ALBUTEROL SULFATE HFA 8GM INHALATION AEROSOL INH SCH ×6 (03:00→23:00)
[2019-12-22 03:55] LABS: BASOPHILS % 0.1 % (0.0-1.0); HEMATOCRIT 32.2 % (34.2-44.1); HEMOGLOBIN 10.2 g/dL (12.0-16.0); LYMPHOCYTES # (AUTO) 0.6 (1.0-3.2); LYMPHOCYTES % 5.5 % (18.0-39.1); MEAN CORPUSCULAR HEMOGLOBIN 28.8 pg (28-32); MEAN CORPUSCULAR HGB CONC 31.7 g/dL (31-35); MONOCYTES # (AUTO) 0.6 (0.2-0.8); NEUTROPHILS # (AUTO) 10.2 (2.1-6.9); NEUTROPHILS % 88.9 % (38.7-80.0); PLATELET COUNT 277 x10e3/uL (140-360); RED BLOOD COUNT 3.54 x10e6/uL (3.6-5.1); RED CELL DISTRIBUTION WIDTH 14.1 % (11.7-14.4)
[2019-12-22 04:12] LABS: ALANINE AMINOTRANSFERASE 17 IU/L (0-55); ALBUMIN 1.9 g/dL (3.5-5.0); ALBUMIN/GLOBULIN RATIO 0.5 (0.8-2.0); ALKALINE PHOSPHATASE 83 IU/L (40-150); BLOOD UREA NITROGEN 23 mg/dL (7-26); BUN/CREATININE RATIO 28 (6-25); CALCIUM 8.2 mg/dL (8.4-10.2); CARBON DIOXIDE 24 mmol/L (22-29); CHLORIDE 105 mmol/L (98-107); CREATININE, SERUM 0.82 mg/dL (0.57-1.11); EST GLOMERULAR FILTRATION RATE > 60 ML/MIN (60-); GLUCOSE 114 mg/dL (74-118); SODIUM 139 mmol/L (136-145)
[2019-12-22] MEDS: MEROPENEM 500MG/ NS 50ML 50 ML IV SCH ×3 (05:12→20:34)
[2019-12-22] MEDS: LEVOTHYROXINE SODIUM 50 MCG TAB PO SCH (05:12)
--- NOTE | 2019-12-22 07:31 | NUR ---
infectious disease per his note Patient seen and examined chart reviewed The patient required intubation yesterday. She also had a pneumothorax and had a right-sided chest tube placed. The patient remains on Versed and fentanyl. She is on a PRVC at a rate of 30 with a tidal volume of 360 and FiO2 of 85%. PEEP is set at 18. PHYSICAL EXAMINATION: VITAL SIGNS: The patient is afebrile. The blood pressure is 128/63, saturation is 100% on the above settings. HEENT: No facial swelling or erythema. There is no oral endotracheal tube. There is a PICC line in place. CARDIAC: Regular rate and rhythm with normal S1 and S2. Auscultation of the lungs reveals crackles at the bases. There is no wheezing. There is a right-sided chest tube in place. There is no air leak. ABDOMEN: soft, nontender. There is no rebound or guarding. EXTREMITIES: No leg edema or calf tenderness. There is no cyanosis or clubbing. SKIN: No rashes. NEUROLOGICAL: No focal abnormalities. LABORATORY DATA: White blood cell count is 17.7, hemoglobin is 11.7, platelet count is 303,000. BUN to creatinine ratio is 16 to 1.18. Other electrolytes are within normal limits and the albumin is 2.2. IMPRESSION: 1. Acute respiratory failure. 2. Bacterial pneumonia superimposed on COVID-19 infection. 3. Viral pneumonia. 5. Asthma. Case was discussed with the medical team please see orders
--- NOTE | 2019-12-22 07:49 | Diagnostic Imaging Report ---
Examination: Single AP view of the chest. COMPARISON: Portable chest 12/21/2019 INDICATION: Intubated, COVID IMPRESSION: 1. Lines and Tubes: Supporting lines and tubes are unchanged. 2. No interval change in diffuse bilateral interstitial and alveolar opacities consistent with multifocal pneumonia as well as left retrocardiac density with obscuration of the left hemidiaphragm is extremely poor diffusion of associated consolidation or atelectasis. Change in residual right pneumothorax. 3. Cardiomediastinal silhouette is obscured. Pulmonary vasculature is obscured. 4. No acute bony abnormalities. Signed by: Dr. Claude Sylvester M.D. on 12/22/2019 7:46 AM
[2019-12-22] MEDS: VANCOMYCIN 1GM/NS 250 ML 250 ML IV SCH (08:00)
[2019-12-22] MEDS: ENOXAPARIN SOD INJ 40 MG/0.4 ML SYR SC SCH ×2 (09:00→20:34)
[2019-12-22] MEDS: FLUTICASONE PROPIONATE NASAL SPRAY NS SCH ×2 (09:00→17:00)
[2019-12-22] MEDS: CHOLECALCIFEROL 400 UNIT TAB PO SCH (09:00)
[2019-12-22] MEDS: PANTOPRAZOLE 40 MG 10ML VIAL IV SCH (09:00)
[2019-12-22 09:59] LABS: ABG HCO3 26 mmol/L (22-26); ABG PCO2 37 mmHg (35-45); ABG PH 7.45 (7.35-7.45); ABG PO2 57 mmHg (80-105)
[2019-12-22] MEDS ORDERED: SODIUM CHLORIDE 0.9% 250ML 250 ML ONE (10:53)
--- NOTE | 2019-12-22 12:59 | Consultation ---
DATE OF CONSULTATION: 12/22/2019 Nephrology Consultation REASON FOR CONSULTATION: Acute kidney injury. HISTORY OF PRESENT ILLNESS: This is a 64-year-old female, who is currently intubated and sedated, who has a pretty significant hospital course being treated for underlying COVID-19 pneumonia, has a right-sided pneumothorax with a chest tube, in which now, Nephrology has been consulted for acute kidney injury. In reviewing this patient's renal function, the patient had a creatinine of 1.14 yesterday. Electrolytes were stable. She did have episodes of some hypotension leading to the acute kidney injury. There is no family at bedside. The patient is currently intubated and sedated. Information being obtained from the notes. REVIEW OF SYSTEMS: Pertinent Positives: She is intubated and sedated, unable to obtain any review of systems. ALLERGIES: NO KNOWN DRUG ALLERGIES. HOME MEDICATIONS: See med reconciliation form. PAST MEDICAL HISTORY: 1. She currently has COVID-19 pneumonia, intubated and sedated. 2. Viral hepatitis. 3. Pneumothorax. PAST SURGICAL HISTORY: She is intubated and sedated, has a chest tube. PAST FAMILY HISTORY: Unable to obtain. SOCIAL HISTORY: Unable to obtain at this time due to the patient being intubated and sedated. PHYSICAL EXAMINATION: VITAL SIGNS: Temperature is 97.7, pulse 60, respiratory rate is 28, blood pressure 116/55, pulse ox 93% on mechanical ventilator. GENERAL: Intubated and sedated. PULMONARY: Intubated and sedated. CARDIOVASCULAR: Positive S1 and S2. No murmurs, rubs, or gallops appreciated. ABDOMEN: Soft, nondistended, nontender to palpation. Bowel sounds present. MUSCULOSKELETAL: Unable to assess. NEUROLOGICAL: Unable to assess. SKIN: Intact. Warm to touch. Good cap refill. EXTREMITIES: No edema appreciated. LABORATORY FINDINGS: Show white count is 11.5, hemoglobin 10.2, hematocrit is 32, and platelets of 277. Chemistry; sodium 139, potassium 4, chloride 105, bicarb 24, anion gap of 14, BUN is 23, creatinine is 0.82, glucose is 114, calcium is 8.2. SEROLOGY: Coronavirus is detected. MICROBIOLOGY: Blood cultures no growth. IMAGING STUDIES: Chest x-ray this morning showed some diffuse bilateral interstitial alveolar opacities, consistent with multifocal pneumonia. IMPRESSION: 1. Acute respiratory failure secondary coronavirus disease 2019 pneumonia. 2. Acute kidney injury secondary to blood pressure fluctuations. 3. Right-sided pneumothorax with a chest tube. PLAN: At this time from a renal standpoint, renal function seems to have improved and downtrending once the blood pressure is improved. Electrolytes are stable. We will monitor urine output very closely. We will continue to follow with the rest of the primary team and the rest of the consultants. I appreciate consultation. MD TEJAS Guerrero/MOD[facility] /[id number]
--- NOTE | 2019-12-22 15:50 | Progress Note ---
DATE: SUBJECTIVE: The patient is still on mechanical ventilation. She is on a PRVC mode of ventilation at a rate of 28 with tidal volume of 350. Her FiO2 is set at 85%. Her PEEP is set at 16. She has an enteral feeding tube in place and is receiving 40 mL/h of feedings. She has a right-sided chest tube. There is a small air leak. PHYSICAL EXAMINATION: VITAL SIGNS: Blood pressure is 112/54, saturation is 94%. HEENT: Shows no facial swelling or erythema. LYMPHATIC: Shows no submandibular, cervical, or supraclavicular adenopathy. CARDIAC: Reveals regular rate and rhythm with normal S1 and S2. LUNGS: Auscultation of lungs reveals crackles at the bases. There is no wheezing. ABDOMEN: Soft, nontender. There is no rebound or guarding. EXTREMITIES: Shows no leg edema or calf tenderness. There is no cyanosis or clubbing. SKIN: Shows no rashes. NEUROLOGIC: Shows the patient to be sedated. LABORATORY DATA: White blood cell count 11.5 and hemoglobin is 10.2. The platelet count is 277. BUN to creatinine ratio is 23 to 0.82. Other electrolytes are within normal limits. The albumin is 1.9. RADIOGRAPHIC DATA: Chest x-ray shows diffuse infiltrates. There is some residual right pneumothorax that is unchanged. IMPRESSION: 1. Acute respiratory failure. 2. Viral pneumonia and coronavirus disease-19. 3. Superimposed bacterial pneumonia. 4. Asthma. 5. Right-sided pneumothorax with chest tube. 6. Acute kidney injury. 7. Anemia, unspecified. 8. Hypoalbuminemia. PLAN: 1. Continue to monitor ABGs. Continue current mode of ventilation. 2. Continue current antibiotics. 3. Continue chest tube to suction. 4. Lovenox. 5. Enteral feedings. 6. Versed and fentanyl. 7. Case discussed with nightshift nursing, dayshift nursing, Respiratory, Internal Medicine, Infectious Disease, and Nephrology. Greater than 35 minutes in direct critical care time. Patrick Wren MD [facility] /[id number]
[2019-12-22] MEDS: MIDAZOLAM HCL 5MG/ML 10ML VIAL 100 ML IV PRN ×2 (17:06→20:34)
--- NOTE | 2019-12-22 19:14 | NUR ---
Ms. Austin remains vent dependent via ETT, the settings are PRVC: 85/16/28/360. Patient is sedated with Versed at 5 mg/hr and Fentanyl @ 225 mcg/hr. Rass of -2 -3. She responds readily to tactile stimuli. Levophed was increased to 2 mcg/kg/hr to provide additional hemodynamic support. Tube feeds infusing at 40 ml/hr, no residuals noted, no vomiting seen. Neumann cath patent and intact draining cloudy urine. Urine output decreasing. Dr. Foster was made aware of the same and ordered urine culture to be sent.
[2019-12-22] MEDS: FENTANYL 2000MCG/NS 250 250 ML IV PRN (20:34)
[2019-12-22] MEDS: NOREPINEPHRINE INJ 4MG/4ML 8 MG in DEXTROSE 5% 250ML 242 ML IV SCH (20:35)
[2019-12-22 21:13] LABS: ABG HCO3 27 mmol/L (22-26); ABG PCO2 36 mmHg (35-45); ABG PH 7.48 (7.35-7.45); ABG PO2 69 mmHg (80-105)
[2019-12-23] VITALS (21 sets, daily range): BP systolic 91–137; BP diastolic 39–75
[2019-12-23 02:21] LABS: BASOPHILS % 0.2 % (0.0-1.0); HEMATOCRIT 34.4 % (34.2-44.1); HEMOGLOBIN 10.9 g/dL (12.0-16.0); LYMPHOCYTES # (AUTO) 0.8 (1.0-3.2); LYMPHOCYTES % 6.8 % (18.0-39.1); MEAN CORPUSCULAR HEMOGLOBIN 28.3 pg (28-32); MEAN CORPUSCULAR HGB CONC 31.7 g/dL (31-35); MEAN CORPUSCULAR VOLUME 89.4 fL (81-99); MONOCYTES # (AUTO) 0.9 (0.2-0.8); MONOCYTES % 7.5 % (4.4-11.3); NEUTROPHILS # (AUTO) 9.8 (2.1-6.9); NEUTROPHILS % 84.8 % (38.7-80.0); PLATELET COUNT 295 x10e3/uL (140-360); RED BLOOD COUNT 3.85 x10e6/uL (3.6-5.1); RED CELL DISTRIBUTION WIDTH 14.6 % (11.7-14.4)
[2019-12-23 02:37] LABS: ALANINE AMINOTRANSFERASE 19 IU/L (0-55); ALBUMIN 1.9 g/dL (3.5-5.0); ALBUMIN/GLOBULIN RATIO 0.5 (0.8-2.0); ALKALINE PHOSPHATASE 80 IU/L (40-150); ANION GAP 11.5 mmol/L (8-16); BLOOD UREA NITROGEN 31 mg/dL (7-26); BUN/CREATININE RATIO 37 (6-25); CALCIUM 8.3 mg/dL (8.4-10.2); CARBON DIOXIDE 25 mmol/L (22-29); CHLORIDE 108 mmol/L (98-107); CREATININE, SERUM 0.83 mg/dL (0.57-1.11); EST GLOMERULAR FILTRATION RATE > 60 ML/MIN (60-); GLUCOSE 106 mg/dL (74-118); POTASSIUM 4.5 mmol/L (3.5-5.1); SODIUM 140 mmol/L (136-145)
[2019-12-23] MEDS: ALBUTEROL SULFATE HFA 8GM INHALATION AEROSOL INH SCH ×6 (03:00→23:00)
[2019-12-23] MEDS: MIDAZOLAM HCL 5MG/ML 10ML VIAL 100 ML IV PRN ×2 (03:20→20:40)
[2019-12-23] MEDS: MEROPENEM 500MG/ NS 50ML 50 ML IV SCH ×3 (04:49→20:38)
[2019-12-23] MEDS: LEVOTHYROXINE SODIUM 50 MCG TAB PO SCH (04:49)
--- NOTE | 2019-12-23 07:42 | Diagnostic Imaging Report ---
EXAMINATION: CHEST SINGLE (PORTABLE) INDICATION: Respiratory failure. COMPARISON: Chest radiograph 12/22/2019. FINDINGS: AP view TUBES and LINES: Endotracheal tube, enteric tube, right arm PICC, and right apical chest tube in similar position. LUNGS/PLEURA: There are bilateral patchy opacities compatible with multifocal pneumonia, unchanged.. There is persistent obscuration of the left hemidiaphragm which could be due to effusion and or atelectasis. Decreased trace right-sided pneumothorax. HEART AND MEDIASTINUM: The cardiomediastinal silhouette is obscured by adjacent opacities. There are atherosclerotic calcifications within the aorta. BONES AND SOFT TISSUES: No acute osseous lesion. Soft tissues are unremarkable. UPPER ABDOMEN: No free air under the diaphragm. IMPRESSION: Lines and tubes as above. Decreased trace right-sided pneumothorax. Unchanged bilateral patchy opacities compatible with multifocal pneumonia. Signed by: Dr. Maria E Eaton MD on 12/23/2019 7:39 AM
[2019-12-23] MEDS: FENTANYL 2000MCG/NS 250 250 ML IV PRN ×2 (08:41→20:39)
[2019-12-23 08:43] LABS: ABG HCO3 27 mmol/L (22-26); ABG PCO2 45 mmHg (35-45); ABG PH 7.38 (7.35-7.45); ABG PO2 83 mmHg (80-105); ABG TCO2 28
--- NOTE | 2019-12-23 14:21 | Progress Note ---
DATE: SUBJECTIVE: The patient is afebrile. She remains on mechanical ventilation. She is on a PRVC at a rate of 26 with a tidal volume of 360 and a PEEP of 16. Her FiO2 is set at 85%. She remains on Versed and fentanyl. She has a right-sided chest tube in place with no air leak. She has a PICC line as well as a right radial arterial line. PHYSICAL EXAMINATION: VITAL SIGNS: Blood pressure is 110/47 and saturation is 96% on the above ventilator settings. HEENT: No facial swelling or erythema. LYMPHATIC: No submandibular, cervical, or supraclavicular adenopathy. There is an oral endotracheal tube. CARDIAC: Regular rate and rhythm with normal S1, S2. LUNGS: Auscultation of lungs reveals crackles at the bases. There is no wheezing. ABDOMEN: Soft, nontender. There is no rebound or guarding. EXTREMITIES: No leg edema or calf tenderness. There is no cyanosis or clubbing. SKIN: No rashes. NEUROLOGICAL: The patient to be sedated. LABORATORY DATA: White blood cell count 11.5 and hemoglobin is 10.9. The platelet count is 295. The BUN to creatinine ratio is 31 to 0.83. The other electrolytes are within normal limits. Albumin is 1.9. RADIOGRAPHIC DATA: Chest x-ray shows bilateral infiltrates. IMPRESSION: 1. Acute respiratory failure. 2. Bacterial pneumonia, superimposed, on coronavirus disease-19. 3. Viral pneumonia and coronavirus disease-19. 4. Asthma. 5. Right-sided pneumothorax that has resolved. 6. Acute kidney injury that has resolved. 7. Anemia. PLAN: 1. Continue current ventilator settings. 2. Complete antibiotics. 3. Continue chest tube to suction. 4. Lovenox. 5. Enteral feedings. 6. Versed and fentanyl. Greater than 35 minutes in direct critical care time. Patrick Wren MD [facility]/MODL /[id number]
--- NOTE | 2019-12-23 15:36 | Progress Note ---
DATE: 12/23/2019 Nephrology Progress Note SUBJECTIVE: The patient is still intubated and sedated. No overnight events. No changes. PHYSICAL EXAMINATION: VITAL SIGNS: Temperature 98.6, pulse 65, respiratory rate 26, blood pressure 110/47, pulse ox 96% on mechanical ventilator setting, FiO2 of 85. GENERAL: Intubated and sedated. PULMONARY: Intubated and sedated. SKIN: Intact. CARDIOVASCULAR: Positive S1 and S2. No murmurs, rubs, or gallops appreciated. ABDOMEN: Soft, nondistended. Tender to palpation. Bowel sounds present. MUSCULOSKELETAL: Unable to assess. Currently intubated and sedated. NEUROLOGIC: Currently intubated and sedated. SKIN: Intact, warm to touch. Good cap refill. EXTREMITIES: No edema. Good range of motion throughout. LABORATORY DATA: Show white count 11.5, hemoglobin 10, hematocrit 34, platelets of 295. Chemistries reviewed and stable. IMPRESSION: 1. Acute respiratory failure secondary to coronavirus disease-19 pneumonia. 2. Acute kidney injury secondary to blood pressure fluctuations. 3. Right-sided pneumothorax with chest tube. PLAN: At this time, from a renal standpoint, the patient is doing fine with no issues. Good urine output. Electrolytes are stable. The patient is still severely ill, intubated and sedated and is not very close to being off the vent. We will continue same plan of care and monitor very closely. Appreciate consult. Continue to follow with you. MD TEJAS Guerrero/MARTITA /[id number]
[2019-12-23] MEDS: CHOLECALCIFEROL 400 UNIT TAB PO SCH (17:02)
[2019-12-23] MEDS: PANTOPRAZOLE 40 MG 10ML VIAL IV SCH (17:02)
[2019-12-23] MEDS: ENOXAPARIN SOD INJ 40 MG/0.4 ML SYR SC SCH ×2 (17:02→20:38)
[2019-12-23] MEDS: FLUTICASONE PROPIONATE NASAL SPRAY NS SCH ×2 (17:02→17:28)
--- NOTE | 2019-12-23 17:54 | NUR ---
The patient is still intubated and sedated. No overnight events. No changes. PHYSICAL EXAMINATION: VITAL SIGNS: Temperature 98.6, pulse 65, respiratory rate 26, blood pressure 110/47, pulse ox 96% on mechanical ventilator setting, FiO2 of 85. GENERAL: Intubated and sedated. PULMONARY: Intubated and sedated. SKIN: Intact. CARDIOVASCULAR: Positive S1 and S2. No murmurs, rubs, or gallops appreciated. ABDOMEN: Soft, nondistended. Tender to palpation. Bowel sounds present. MUSCULOSKELETAL: Unable to assess. Currently intubated and sedated. NEUROLOGIC: Currently intubated and sedated. SKIN: Intact, warm to touch. Good cap refill. EXTREMITIES: No edema. Good range of motion throughout. LABORATORY DATA: Show white count 11.5, hemoglobin 10, hematocrit 34, platelets of 295. Chemistries reviewed and stable. [id number]
--- NOTE | 2019-12-23 19:57 | Progress Note ---
DATE: SUBJECTIVE: Ms. Cook remains in intensive care unit, extremely ill. Discussed with Dr. Wren. PHYSICAL EXAMINATION: GENERAL: Intubated. VITAL SIGNS: Stable. Afebrile. HEENT: She is not icteric. NECK: Supple. CHEST: Clear. IMPRESSION: Respiratory failure, aspiration pneumonia, COVID-19, right-sided pneumothorax, and acute kidney injury. PLAN: To continue as ordered. Please refer to my notes. MD ANGEL Zamorano/MODL /[id number]
[2019-12-23] MEDS ORDERED: NOREPINEPHRINE 8 MG/D5W 250 ML 250 ML ONE (20:54)
[2019-12-23 22:05] LABS: ABG PCO2 45 mmHg (35-45)
[2019-12-23 22:06] LABS: ABG HCO3 28 mmol/L (22-26); ABG PO2 58 mmHg (80-105); ABG TCO2 29
[2019-12-24] VITALS (23 sets, daily range): BP systolic 95–138; BP diastolic 38–71
[2019-12-24] MEDS: ALBUTEROL SULFATE HFA 8GM INHALATION AEROSOL INH SCH ×5 (03:00→19:00)
[2019-12-24] MEDS: NOREPINEPHRINE INJ 4MG/4ML 8 MG in DEXTROSE 5% 250ML 242 ML IV SCH ×2 (03:39→12:52)
[2019-12-24] MEDS: MIDAZOLAM HCL 5MG/ML 10ML VIAL 100 ML IV PRN ×3 (03:40→20:53)
[2019-12-24 05:02] LABS: BASOPHILS % 0.4 % (0.0-1.0); EOSINOPHILS # (AUTO) 0.1 (0.0-0.4); EOSINOPHILS % 0.7 % (0.0-6.0); HEMATOCRIT 36.1 % (34.2-44.1); LYMPHOCYTES # (AUTO) 1.6 (1.0-3.2); LYMPHOCYTES % 15.1 % (18.0-39.1); MEAN CORPUSCULAR HEMOGLOBIN 28.1 pg (28-32); MEAN CORPUSCULAR HGB CONC 30.5 g/dL (31-35); MEAN CORPUSCULAR VOLUME 92.1 fL (81-99); MONOCYTES # (AUTO) 0.9 (0.2-0.8); NEUTROPHILS % 74.9 % (38.7-80.0); PLATELET COUNT 293 x10e3/uL (140-360); RED BLOOD COUNT 3.92 x10e6/uL (3.6-5.1); RED CELL DISTRIBUTION WIDTH 15.1 % (11.7-14.4)
[2019-12-24 05:33] LABS: ALANINE AMINOTRANSFERASE 16 IU/L (0-55); ALBUMIN 1.9 g/dL (3.5-5.0); ALBUMIN/GLOBULIN RATIO 0.5 (0.8-2.0); ALKALINE PHOSPHATASE 77 IU/L (40-150); ANION GAP 13.1 mmol/L (8-16); BLOOD UREA NITROGEN 27 mg/dL (7-26); BUN/CREATININE RATIO 35 (6-25); CALCIUM 7.7 mg/dL (8.4-10.2); CARBON DIOXIDE 25 mmol/L (22-29); CHLORIDE 107 mmol/L (98-107); CREATININE, SERUM 0.78 mg/dL (0.57-1.11); EST GLOMERULAR FILTRATION RATE > 60 ML/MIN (60-); GLUCOSE 85 mg/dL (74-118); POTASSIUM 4.1 mmol/L (3.5-5.1); SODIUM 141 mmol/L (136-145)
[2019-12-24] MEDS: LEVOTHYROXINE SODIUM 50 MCG TAB PO SCH (06:03)
[2019-12-24] MEDS: MEROPENEM 500MG/ NS 50ML 50 ML IV SCH ×3 (06:03→20:53)
--- NOTE | 2019-12-24 07:05 | Diagnostic Imaging Report ---
EXAMINATION: CHEST SINGLE (PORTABLE) INDICATION: Respiratory failure. COMPARISON: Chest radiograph 12/23/2019. FINDINGS: AP view TUBES and LINES: Endotracheal tube, enteric tube, right arm PICC, and right apical chest tube in similar position. LUNGS/PLEURA: There are bilateral multifocal airspace opacities, decreased in the right. There is persistent obscuration of the left hemidiaphragm which could be due to effusion and or atelectasis. Increased small right-sided pneumothorax. HEART AND MEDIASTINUM: The cardiomediastinal silhouette is obscured by adjacent opacities. There are atherosclerotic calcifications within the aorta. BONES AND SOFT TISSUES: No acute osseous lesion. Soft tissues are unremarkable. UPPER ABDOMEN: No free air under the diaphragm. IMPRESSION: Lines and tubes as above. Increased small right-sided pneumothorax. Bilateral patchy airspace opacities, decreased in the right, compatible with multifocal pneumonia. Signed by: Dr. Maria E Eaton MD on 12/24/2019 7:02 AM
--- NOTE | 2019-12-24 08:39 | Progress Note ---
DATE: 12/23/2019 CONSULTING PHYSICIANS: Dr. Swapna Carver, Dr. Patrick Wren, Dr. Robson Wren, Dr. Robson Wren, and Dr. Sis Reynoso. SUBJECTIVE: The patient is supine in bed. She remains sedated on mechanical ventilation. She is in ICU 189. OBJECTIVE: VITAL SIGNS: Temperature 97.9, heart rate 67, blood pressure 111/60, respirations 26, oxygen saturation 98%. Intake and output 2238 mL in and 632 mL out. GENERAL: The patient is supine. Lungs with bibasilar crackles. She is on PRVC rate of 26, FiO2 of 85%, tidal volume 360, PEEP of 16. HEENT: Sclerae anicteric. NECK: Supple. CARDIOVASCULAR: Regular rate and rhythm. No murmur. Right chest tube shows a PICC line, right radial arterial line on Levophed. ABDOMEN: Bowel sounds positive. Soft. Neumann catheter, yellow urine. NG tube with Glucerna 1.2 tube feeding. EXTREMITIES: Without pitting edema. No clubbing, cyanosis, or marked swelling. NEUROLOGICAL: Sedated with Versed and fentanyl drips. LABORATORY DATA: WBC 11.52, hemoglobin 10.9, hematocrit 34.4, platelets 295,000. ABG today pH 7.40, pCO2 45, PO2 58, HC03 28, total CO2 29, oxygen saturation 89%, base excess of 3, FiO2 of 85%. Sodium 140, potassium 4.5, chloride 108, CO2 25, BUN 31, creatinine 0.83, estimated GFR greater than 60, glucose 106, calcium 8.3, total bilirubin 0.1, AST 19, ALT 19, alkaline phosphatase 80, total protein 6, albumin 1.9. Chest x-ray done today shows decreased trace right-sided pneumothorax, unchanged bilateral patchy opacities compatible with multifocal pneumonia. ASSESSMENT/PLAN: 1. Acute respiratory failure due to COVID-19, status post re-intubation 12/19. Wean ventilator settings as tolerated per Pulmonology. 2. Superimposed bacterial pneumonia, on COVID-19. The patient on Merrem, maintain ventilatory support. 3. Bilateral community-acquired pneumonia with COVID-19, POA. Continue Lovenox, zinc, vitamin C and vitamin D. 4. Right pneumothorax, status post chest tube placement. Monitor chest x-ray results. 5. NAGA, resolved. BUN 31, creatinine 0.83, improved. 6. Anemia. Hemoglobin 10.9. Monitor. 7. Prophylaxis. Lovenox and Protonix. Billing code [id number]. Time spent 35 minutes. Dictated by Troibio Hutchins, FABIÁN MD [facility]/MODL /[id number]
[2019-12-24] MEDS: FLUTICASONE PROPIONATE NASAL SPRAY NS SCH ×2 (09:00→17:00)
[2019-12-24] MEDS: ENOXAPARIN SOD INJ 40 MG/0.4 ML SYR SC SCH ×2 (09:59→20:53)
[2019-12-24] MEDS: PANTOPRAZOLE 40 MG 10ML VIAL IV SCH (09:59)
[2019-12-24] MEDS: CHOLECALCIFEROL 400 UNIT TAB PO SCH (09:59)
[2019-12-24] MEDS: FENTANYL 2000MCG/NS 250 250 ML IV PRN (12:51)
[2019-12-24 13:51] LABS: ABG HCO3 25 mmol/L (22-26); ABG PCO2 38 mmHg (35-45); ABG PH 7.43 (7.35-7.45); ABG PO2 167 mmHg (80-105); ABG TCO2 26
--- NOTE | 2019-12-24 14:20 | NUR ---
this is infectious disease progress note. The patient remains intensive care unit intubated sedated. This is day #20 of hospitalization. The patient is supine in bed. She remains sedated on mechanical ventilation. She is in ICU 189. OBJECTIVE: VITAL SIGNS: Temperature 97.9, heart rate 67, blood pressure 111/60, respirations 26, oxygen saturation 98%. Intake and output 2238 mL in and 632 mL out. GENERAL: The patient is supine. Lungs with bibasilar crackles. She is on PRVC rate of 26, FiO2 of 85%, tidal volume 360, PEEP of 16. HEENT: Sclerae anicteric. NECK: Supple. CARDIOVASCULAR: Regular rate and rhythm. No murmur. Right chest tube shows a PICC line, right radial arterial line on Levophed. ABDOMEN: Bowel sounds positive. Soft. Neumann catheter, yellow urine. NG tube with Glucerna 1.2 tube feeding. EXTREMITIES: Without pitting edema. No clubbing, cyanosis, or marked swelling. NEUROLOGICAL: Sedated with Versed and fentanyl drips. LABORATORY DATA: WBC 11.52, hemoglobin 10.9, hematocrit 34.4, platelets 295,000. ABG today pH 7.40, pCO2 45, PO2 58, HC03 28, total CO2 29, oxygen saturation 89%, base excess of 3, FiO2 of 85%. Sodium 140, potassium 4.5, chloride 108, CO2 25, BUN 31, creatinine 0.83, estimated GFR greater than 60, glucose 106, calcium 8.3, total bilirubin 0.1, AST 19, ALT 19, alkaline phosphatase 80, total protein 6, albumin 1.9. Chest x-ray done today shows decreased trace right-sided pneumothorax, unchanged bilateral patchy opacities compatible with multifocal pneumonia. ASSESSMENT/PLAN: 1. Acute respiratory failure due to COVID-19, status post re-intubation 12/19. Wean ventilator settings as tolerated per Pulmonology. 2. Superimposed bacterial pneumonia, on COVID-19. The patient on Merrem, maintain ventilatory support. 3. Bilateral community-acquired pneumonia with COVID-19, POA. Continue Lovenox, zinc, vitamin C and vitamin D. 4. Right pneumothorax, status post chest tube placement. Monitor chest x-ray results. 5. NAGA, resolved. BUN 31, creatinine 0.83, improved. 6. Anemia. Hemoglobin 10.9. Monitor. 7. Prophylaxis. Lovenox and Protonix. concern about aspiration pneumonia continue antibiotic as ordered Discussed with medical team Continue with supportive care
--- NOTE | 2019-12-24 15:53 | NUR ---
Nutrition Intervention Note RD Recommendation(s) for Physician: - Recommend modifying formula to Vital AF 1.2 @ goal rate of 40 mL/hr to better meet pts estimated nutritional needs (provides 1152 kcal, 72 g protein) -Water flushes/fluid management per MD Plan of Care: RD following, monitoring for tolerance and adequacy, tube feed recommendation Nutrition reason for involvement: follow up RD Assessment 12/23: Follow up. Chart reviewed. Pt was reintubated on 12/19. Tube feeding was started. Recommendations provided. Pt was tolerating tube feeding at 40 mL/hr per nursing note on 12/21. Will continue to monitor. 12/18: Follow up. Chart reviewed. Last recorded meal intake amount was 25-100% on 12/16. MD note indicates pt is feeling more fatigued and increased dyspnea. If PO intake is <50% of meals, offer Ensure Compact. Will continue to monitor. 12/14: Follow up. Pt is primarily Macedonian speaking per chart. Pt is now on a regular diet with 50-100% meal intake recorded the past 3 days. Speech therapy note on 12/11, indicates pt is tolerating diet consistency. Will continue to monitor. 12/09: Follow up. Pt off sedation and extubated. JEWELSMITH evaluation for po/diet safety pending. Pt continues on Levophed. Chart reviewed. Diet and TF rec's provided. Will continue to monitor. (12/05/19) Pt is a 64 year old female admitted with acute respiratory failure. Pt is COVID+ and is currently intubated. Pt currently has an order for tube feeding. Pt is receiving propofol at 37.3 mL/hr per documentation which provides 985 kcal. Unable to obtain nutrition history at this time. Recommendations provided. Will continue to monitor. Principal Problems/Diagnoses: acute respiratory failure PMH: asthma, hypothyroid GI: last recorded BM 12/17 Skin: no pressure ulcers noted Labs: 12/23: Na 141, BUN 27, Cr 0.78, Glu 85, Ca 7.7 12/17: Na 140, K 3.7, BUN 11, Cr 0.68, Glu 78, Ca 8.5 12/14: Na 143, K 3.9, BUN 19, Cr 0.74, Glu 73, Mg 2.4 12/09: Na 145, K 4.4, BUN 34, Cr 0.87, Gluc 126 (12/04) Na 142, K 3.9, BUN 13, Cr 0.89, Glu 124, Ca 7.9, AST 36 Meds: protonix, antibiotic, vitamin D, levothyroxine, norepinephrine, fentanyl, zofran Ht: 60 inches Wt: 225 lbs (12/22) 222 lbs (12/16) 224 lbs (12/14) 228 lbs (12/04) BMI: 43.9 kg/m2 IBW: 100 lbs Malnutrition Evaluation (12/05/19) Unable to assess. Will re-evaluate at follow-up as appropriate. Nutrition Prescription (Diet Order): Glucerna 1.2 @ 40 mL/hr (privides 1152 kcal, 58 g protein) Estimated Nutritional Needs: 3053-4005 calories/day (22-25 kcal/kg IBW) 68-90 g protein/day (1.5-2 g pro/kg IBW) Diet Adequacy: meeting calorie needs, not meeting protein needs Tolerance: tolerating TF Diet Education Needs Assessment: Diet education not indicated at this time. Nutrition Care Level: moderate Nutrition Diagnosis: Inadequate oral intake related to acute respiratory failure/mechanical ventilation as evidenced by pt requiring enteral nutrition Goal: Patient will meet 75-100% of estimated needs by follow up Progress: progressing Interventions: -Composition/Rate/Route, Recommendation modifications Monitoring/Evaluation: -Total energy intake, Total protein intake, Formula/Solution, Weight change Signed: Corinna Aviles RD, MANDY
--- NOTE | 2019-12-24 16:13 | Progress Note ---
DATE: 12/24/2019 Nephrology Progress Note SUBJECTIVE: The patient is still intubated and sedated. No overnight events. PHYSICAL EXAMINATION: VITAL SIGNS: Temperature is 98.2, pulse 75, respiratory rate is 26, blood pressure is 102/40, and pulse ox 95%. She is on mechanical ventilator. GENERAL: Intubated and sedated. CARDIOVASCULAR: Positive S1 and S2. No murmurs, rubs, or gallops appreciated. PULMONARY: Intubated and sedated. MUSCULOSKELETAL: Unable to assess. NEUROLOGIC: Unable to assess. SKIN: Intact, warm to touch. Good cap refill. PSYCHIATRIC: Normal affect and mood. EXTREMITIES: No edema. Good range of motion throughout. LABORATORY DATA: CBC; stable. Chemistry; reviewed, stable. IMPRESSION: 1. Acute respiratory failure, secondary to Coronavirus-19 pneumonia. 2. Acute kidney injury, secondary to blood pressure fluctuation, now improved. 3. Right-sided pneumothorax with chest tube. PLAN: At this time, from a Renal standpoint, she is doing well. Electrolytes are stable. Good urine output. The patient is still severely ill. We will continue to follow with the rest of the team. MD TEJAS Guerrero/MARTITA /[id number]
--- NOTE | 2019-12-24 16:33 | Progress Note ---
DATE: SUBJECTIVE: The patient is still requiring mechanical ventilation. She is on a PRVC mode of ventilation at a rate of 26. Her blood pressure is 109/41 and saturation is 93%. Her tidal volume is 350 and FiO2 is 70%. Her PEEP is set at 16. She remains on Versed and fentanyl. She still has a chest tube in on the right side. There is no air leak. PHYSICAL EXAMINATION: VITAL SIGNS: The blood pressure is 109/40 and the saturation is 93%. HEENT: No facial swelling or erythema. LYMPHATIC: No submandibular, cervical, or supraclavicular adenopathy. CARDIAC: Regular rate and rhythm with normal S1, S2. LUNGS: Auscultation of lungs reveals rhonchorous breath sounds bilaterally. There is no wheezing. ABDOMEN: Soft, nontender. There is no rebound or guarding. EXTREMITIES: No leg edema or calf tenderness. There is no cyanosis or clubbing. SKIN: No rashes. NEUROLOGICAL: No focal abnormalities. LABORATORY DATA: White blood cell count is 10.7, hemoglobin is 11. The platelet count is 293. The BUN to creatinine ratio is 27 to 0.78. The other electrolytes are within normal limits and the albumin are 1.9. RADIOGRAPHIC DATA: Chest x-ray shows bilateral patchy infiltrates. There is no residual pneumothorax. IMPRESSION: 1. Acute respiratory failure. 2. Bacterial pneumonia superimposed on coronavirus disease-19 infection. 3. Viral pneumonia and coronavirus disease-19. 4. Asthma. 5. Right-sided pneumothorax and has resolved. 6. Acute kidney injury. 7. Anemia. PLAN: 1. Continue current ventilator settings and monitor ABGs. 2. Continue antibiotics. 3. Continue chest tube to suction. 4. Lovenox. 5. Enteral feedings. 6. Versed and fentanyl. Greater than 35 minutes in direct critical care time. Patrick Wren MD [facility]/MODL /[id number]
[2019-12-24 18:53] LABS: POTASSIUM 3.9 mmol/L (3.5-5.1)
[2019-12-24] MEDS ORDERED: HEPARIN SOD/SOD CHLORIDE 1,000 ML IV PRN (20:15)
--- NOTE | 2019-12-24 21:23 | Diagnostic Imaging Report ---
EXAMINATION: CHEST SINGLE (PORTABLE) INDICATION: Evaluate pneumothorax. COMPARISON: Chest radiograph 12/24/2019. FINDINGS: AP view TUBES and LINES: Endotracheal tube, enteric tube, right arm PICC, and right apical chest tube in similar position. LUNGS/PLEURA: There are bilateral multifocal airspace opacities, slightly increased in the right. There is persistent obscuration of the left hemidiaphragm which could be due to effusion and or atelectasis. Unchanged small right-sided pneumothorax. HEART AND MEDIASTINUM: The cardiomediastinal silhouette is partially obscured and mildly enlarged. There are atherosclerotic calcifications within the aorta. BONES AND SOFT TISSUES: No acute osseous lesion. Soft tissues are unremarkable. UPPER ABDOMEN: No free air under the diaphragm. IMPRESSION: Unchanged small right-sided pneumothorax. Bilateral patchy airspace opacities, slightly increased in the right, compatible with multifocal pneumonia. Signed by: Dr. Maria E Eaton MD on 12/24/2019 9:20 PM
[2019-12-25] VITALS (16 sets, daily range): BP systolic 93–132; BP diastolic 43–70
--- NOTE | 2019-12-25 03:20 | Progress Note ---
DATE: 12/24/2019 SUBJECTIVE: The patient remains in ICU bed 189. She is supine, not prone. She remains sedated on mechanical ventilation. OBJECTIVE: VITAL SIGNS: Temperature 98.4, heart rate 73, blood pressure 122/52, respirations 26, oxygen saturation 96%. GENERAL: Supine, not prone. LUNGS: Bibasilar crackles. Currently on PRVC 26, FiO2 of 65%, tidal volume 350, PEEP of 14, peak pressure of 42, minute ventilation 9.1 with oxygen saturation 98% at the time of encounter. HEENT: Sclerae anicteric. Left naris, NG tube, currently Glucerna tube feeding is on hold. NECK: Supple. No JVD. CARDIOVASCULAR: Regular rate and rhythm. No murmur. She has a right upper extremity PICC line with Levophed infusing at 10 mcg/minute and Protonix drip at 40 mg an hour. She has a right radial arterial line with good waveform. She has a right chest tube. ABDOMEN: Bowel sounds positive. Soft, nontender. GENITOURINARY: Neumann catheter is noted without urine inside. EXTREMITIES: No pitting edema. No clubbing, cyanosis, or marked swelling. She has bilateral soft wrist restraints. NEUROLOGICAL: Sedated with fentanyl drip at 200 mcg per hour and Versed at 8 mg an hour. DIAGNOSTIC AND LABORATORY STUDIES: From today, WBC 10.7, hemoglobin 11, hematocrit 36.1, platelets 293. ABG from this morning, pH 7.43, pCO2 of 38, PO2 of 167, HCO3 of 25, oxygen saturation 100%, base excess 1.0, FiO2 of 80%. Sodium 141, potassium 4.1, chloride 107, CO2 of 25, anion gap 13.1, BUN 27, creatinine 0.78, estimated GFR greater than 60, glucose 85, calcium 7.7, total bilirubin 0.2, AST 16, ALT 16, alkaline phosphatase 77, magnesium 2.0, total protein 5.7, albumin 1.9. Chest x-ray from this morning showed bilateral patchy airspace opacities, decreased on the right, compatible with multifocal pneumonia. ASSESSMENT AND PLAN: 1. Acute respiratory failure due to coronavirus disease-19, status post re-intubation on 12/19. Wean ventilator settings as tolerated per Pulmonology. 2. Superimposed bacterial pneumonia on top of coronavirus disease-19. Continue Merrem. Maintain ventilatory support. 3. Bilateral community-acquired pneumonia with coronavirus disease-19, present on admission. Continue Lovenox, zinc sulfate, vitamin C, and vitamin D. 4. Right pneumothorax, status post chest tube placement. Cardiology as well as Pulmonology/Critical Care Medicine following. Monitor chest x-ray results. 5. Acute kidney injury, resolved. Creatinine 0.78. 6. Anemia. Hemoglobin 11. Monitor. 7. Prophylaxis. Lovenox and Protonix. Billing code [id number]. Time spent 35 minutes. Dictated by Toribio Hutchins NP Derrick Mantilla MD [facility]/MODL /[id number]
[2019-12-25 04:59] LABS: BASOPHILS # (AUTO) 0.1 (0.0-0.1); BASOPHILS % 0.6 % (0.0-1.0); EOSINOPHILS # (AUTO) 0.2 (0.0-0.4); EOSINOPHILS % 1.9 % (0.0-6.0); HEMATOCRIT 35.8 % (34.2-44.1); HEMOGLOBIN 11.1 g/dL (12.0-16.0); LYMPHOCYTES # (AUTO) 1.6 (1.0-3.2); LYMPHOCYTES % 15.2 % (18.0-39.1); MEAN CORPUSCULAR HEMOGLOBIN 28.5 pg (28-32); MEAN CORPUSCULAR VOLUME 91.8 fL (81-99); MONOCYTES # (AUTO) 0.7 (0.2-0.8); MONOCYTES % 6.2 % (4.4-11.3); NEUTROPHILS # (AUTO) 8.1 (2.1-6.9); NEUTROPHILS % 74.6 % (38.7-80.0); PLATELET COUNT 277 x10e3/uL (140-360); RED CELL DISTRIBUTION WIDTH 15.3 % (11.7-14.4)
[2019-12-25] MEDS: MEROPENEM 500MG/ NS 50ML 50 ML IV SCH (05:09)
[2019-12-25] MEDS: LEVOTHYROXINE SODIUM 50 MCG TAB PO SCH (05:09)
[2019-12-25 05:26] LABS: ALANINE AMINOTRANSFERASE 13 IU/L (0-55); ALBUMIN 1.8 g/dL (3.5-5.0); ALBUMIN/GLOBULIN RATIO 0.5 (0.8-2.0); ALKALINE PHOSPHATASE 76 IU/L (40-150); ANION GAP 9.7 mmol/L (8-16); BLOOD UREA NITROGEN 18 mg/dL (7-26); BUN/CREATININE RATIO 22 (6-25); CALCIUM 7.9 mg/dL (8.4-10.2); CARBON DIOXIDE 26 mmol/L (22-29); CHLORIDE 108 mmol/L (98-107); CREATININE, SERUM 0.81 mg/dL (0.57-1.11); EST GLOMERULAR FILTRATION RATE > 60 ML/MIN (60-); GLUCOSE 128 mg/dL (74-118); POTASSIUM 3.7 mmol/L (3.5-5.1); SODIUM 140 mmol/L (136-145)
--- NOTE | 2019-12-25 07:07 | Diagnostic Imaging Report ---
EXAMINATION: CHEST SINGLE (PORTABLE) INDICATION: Respiratory failure. COMPARISON: Chest radiograph 12/24/2019. FINDINGS: AP view TUBES and LINES: Endotracheal tube, enteric tube, right arm PICC, and right apical chest tube in similar position. LUNGS/PLEURA: Persistent bilateral multifocal airspace opacities. There is persistent obscuration of the left hemidiaphragm which could be due to effusion and or atelectasis. Decreased small right-sided pneumothorax. HEART AND MEDIASTINUM: The cardiomediastinal silhouette is partially obscured and mildly enlarged. There are atherosclerotic calcifications within the aorta. BONES AND SOFT TISSUES: No acute osseous lesion. Soft tissues are unremarkable. UPPER ABDOMEN: No free air under the diaphragm. IMPRESSION: Decreased small right-sided pneumothorax. Bilateral patchy airspace opacities, compatible with multifocal pneumonia. Signed by: Dr. Maria E Eaton MD on 12/25/2019 7:04 AM
--- NOTE | 2019-12-25 08:55 | Progress Note ---
DATE: SUBJECTIVE: The patient is still on a PRVC mode of ventilation at a rate of 26 with a saturation of 96%. The tidal volume is set at 360 and the FiO2 is set at 70%. The PEEP is set at 14. The patient is receiving Versed and fentanyl. She remains on enteral feedings. PHYSICAL EXAMINATION: VITAL SIGNS: The blood pressure is 126/51 and the pulse is 60 to 70. HEENT: Shows no facial swelling or erythema. CARDIAC: Reveals regular rate and rhythm with normal S1 and S2. LUNGS: Auscultation of lungs reveals decreased breath sounds at the bases. There is no wheezing. There is a right-sided chest tube. There is no air leak. ABDOMEN: Soft and nontender. There is no rebound or guarding. EXTREMITIES: Shows no leg edema or calf tenderness. There is no cyanosis or clubbing. LABORATORY DATA: Electrolytes; BUN and creatinine are within normal limits. CBC is significant for a white blood cell count of 10.8 and hemoglobin of 11.1. The platelet count is 277. RADIOGRAPHIC DATA: Shows decreased small right-sided pneumothorax. There are bilateral infiltrates. IMPRESSION: 1. Acute respiratory failure. 2. Bilateral pneumonia with superimposed on COVID-19. 3. Viral pneumonia and COVID-19. 4. Right-sided pneumothorax. 5. Asthma. 6. Acute kidney injury. 7. Anemia. PLAN: 1. Continue ventilator settings and repeat ABG. 2. Continue chest tube to suction. 3. Enteral feedings. 4. Versed and fentanyl. 5. Complete antibiotics. 6. Case discussed with the nightshift nursing, dayshift nursing, Respiratory, Internal Medicine and Infectious Disease. Greater than 35 minutes in direct critical care time. Patrick Wren MD [facility]/LIANEL /[id number]
[2019-12-25] MEDS: PANTOPRAZOLE 40 MG 10ML VIAL IV SCH (09:06)
[2019-12-25] MEDS: ENOXAPARIN SOD INJ 40 MG/0.4 ML SYR SC SCH ×2 (09:06→20:01)
[2019-12-25] MEDS: FLUTICASONE PROPIONATE NASAL SPRAY NS SCH ×2 (09:06→16:54)
[2019-12-25 09:18] LABS: ABG HCO3 27 mmol/L (22-26); ABG PCO2 43 mmHg (35-45); ABG PH 7.39 (7.35-7.45); ABG PO2 55 mmHg (80-105)
[2019-12-25] MEDS ORDERED: NOREPINEPHRINE 8 MG/D5W 250 ML 250 ML ONE (13:51)
--- NOTE | 2019-12-25 16:36 | NUR ---
PHYSICAL EXAMINATION: VITAL SIGNS: The blood pressure is 126/51 and the pulse is 60 to 70. HEENT: Shows no facial swelling or erythema. CARDIAC: Reveals regular rate and rhythm with normal S1 and S2. LUNGS: Auscultation of lungs reveals decreased breath sounds at the bases. There is no wheezing. There is a right-sided chest tube. There is no air leak. ABDOMEN: Soft and nontender. There is no rebound or guarding. EXTREMITIES: Shows no leg edema or calf tenderness. There is no cyanosis or clubbing. LABORATORY DATA: Electrolytes; BUN and creatinine are within normal limits. CBC is significant for a white blood cell count of 10.8 and hemoglobin of 11.1. The platelet count is 277. RADIOGRAPHIC DATA: Shows decreased small right-sided pneumothorax. There are bilateral infiltrates. [id number]
--- NOTE | 2019-12-25 16:49 | Progress Note ---
DATE: 12/25/2019 Nephrology Progress Note. SUBJECTIVE: No overnight events. Still at baseline, intubated. PHYSICAL EXAMINATION: VITAL SIGNS: Temperature is 98.4, pulse 84, respiratory rate is 26, blood pressure is 114/56, pulse ox 95%. She is on a mechanical ventilator. GENERAL: Intubated and sedated. PULMONARY: Intubated and sedated. CARDIOVASCULAR: Positive S1 and S2. No murmurs, rubs, or gallops. ABDOMEN: Soft, nondistended, nontender to palpation. Bowel sounds present. MUSCULOSKELETAL: Unable to assess. NEUROLOGICAL: Unable to assess. SKIN: Intact. Warm to touch. Good cap refill. LABORATORIES: Show white count 10.8, hemoglobin 11, hematocrit 35.8, platelets of 277. Chemistry: Sodium 140, potassium 3.7, chloride 108, bicarb 26, anion gap of 9.7, BUN is 18, creatinine is 0.81. Blood cultures, no growth. IMPRESSION: 1. Acute respiratory failure secondary to coronavirus-19 pneumonia. 2. Acute kidney injury secondary to blood pressure fluctuation, now improved. 3. Right-sided pneumothorax with chest tube. PLAN: At this time from a renal standpoint, labs and electrolytes are stable. Monitor urine output. Repeat labs in the morning. MD TEJAS Guerrero/MODL /[id number]
--- NOTE | 2019-12-25 19:45 | Progress Note ---
DATE: SUBJECTIVE: Ms. Cook remains in intensive care unit. This is day #21 of hospitalization. She is currently on a ventilator. LABORATORY DATA: White count is 10, hemoglobin 11. Her sodium 140, potassium 3.7. REVIEW OF SYSTEMS: Could not be obtained. PHYSICAL EXAMINATION: GENERAL: She is currently intubated. VITAL SIGNS: Stable, currently afebrile. HEENT: She is not icteric. NECK: Supple. CHEST: Clear. IMPRESSION: COVID-19 respiratory failure, concerned about aspiration pneumonia, right-sided pneumothorax. PLAN: To continue with the current choice of IV antibiotic for 7 days. Continue anticoagulation today with last day of antibiotic. I am going to discontinue. We will keep an eye. We will watch her closely. She is at risk for recurrent aspiration. We will follow. MD ANGEL Zamorano/MARTITA /[id number]
[2019-12-25] MEDS: FENTANYL 2000MCG/NS 250 250 ML IV PRN (20:02)
[2019-12-25] MEDS: MIDAZOLAM HCL 5MG/ML 10ML VIAL 100 ML IV PRN (20:03)
[2019-12-25] MEDS: NOREPINEPHRINE INJ 4MG/4ML 8 MG in DEXTROSE 5% 250ML 242 ML IV SCH (23:53)
[2019-12-26] VITALS (26 sets, daily range): BP systolic 74–147; BP diastolic 45–72
[2019-12-26] MEDS ORDERED: NOREPINEPHRINE 8 MG/D5W 250 ML 250 ML ONE (00:38)
[2019-12-26] MEDS: FENTANYL 2000MCG/NS 250 250 ML IV PRN ×3 (01:30→21:13)
[2019-12-26] MEDS: MIDAZOLAM HCL 5MG/ML 10ML VIAL 100 ML IV PRN ×4 (01:31→21:14)
[2019-12-26 04:39] LABS: BASOPHILS # (AUTO) 0.1 (0.0-0.1); BASOPHILS % 0.4 % (0.0-1.0); EOSINOPHILS # (AUTO) 0.3 (0.0-0.4); EOSINOPHILS % 2.9 % (0.0-6.0); HEMATOCRIT 37.2 % (34.2-44.1); HEMOGLOBIN 11.6 g/dL (12.0-16.0); LYMPHOCYTES # (AUTO) 1.9 (1.0-3.2); LYMPHOCYTES % 16.3 % (18.0-39.1); MEAN CORPUSCULAR HEMOGLOBIN 28.9 pg (28-32); MEAN CORPUSCULAR HGB CONC 31.2 g/dL (31-35); MEAN CORPUSCULAR VOLUME 92.8 fL (81-99); MONOCYTES # (AUTO) 0.7 (0.2-0.8); MONOCYTES % 6.2 % (4.4-11.3); NEUTROPHILS # (AUTO) 8.4 (2.1-6.9); PLATELET COUNT 319 x10e3/uL (140-360); RED BLOOD COUNT 4.01 x10e6/uL (3.6-5.1); RED CELL DISTRIBUTION WIDTH 15.8 % (11.7-14.4)
[2019-12-26 05:01] LABS: ALANINE AMINOTRANSFERASE 19 IU/L (0-55); ALBUMIN 1.8 g/dL (3.5-5.0); ALBUMIN/GLOBULIN RATIO 0.5 (0.8-2.0); ALKALINE PHOSPHATASE 99 IU/L (40-150); ANION GAP 12.9 mmol/L (8-16); BLOOD UREA NITROGEN 13 mg/dL (7-26); BUN/CREATININE RATIO 16 (6-25); CALCIUM 8.1 mg/dL (8.4-10.2); CARBON DIOXIDE 26 mmol/L (22-29); CHLORIDE 109 mmol/L (98-107); CREATININE, SERUM 0.79 mg/dL (0.57-1.11); EST GLOMERULAR FILTRATION RATE > 60 ML/MIN (60-); GLUCOSE 100 mg/dL (74-118); POTASSIUM 3.9 mmol/L (3.5-5.1); SODIUM 144 mmol/L (136-145)
[2019-12-26] MEDS: LEVOTHYROXINE SODIUM 50 MCG TAB PO SCH (05:15)
--- NOTE | 2019-12-26 06:31 | Diagnostic Imaging Report ---
EXAMINATION: CHEST SINGLE (PORTABLE) INDICATION: Respiratory failure. COMPARISON: Chest radiograph 12/25/2019. FINDINGS: AP view TUBES and LINES: Endotracheal tube, enteric tube, right arm PICC, and right apical chest tube in similar position. LUNGS/PLEURA: Bilateral multifocal airspace opacities, slightly increased. There is persistent obscuration of the left hemidiaphragm which could be due to effusion and or atelectasis. Persistent trace right sided pneumothorax. HEART AND MEDIASTINUM: The cardiomediastinal silhouette is partially obscured and mildly enlarged. There are atherosclerotic calcifications within the aorta. BONES AND SOFT TISSUES: No acute osseous lesion. Soft tissues are unremarkable. UPPER ABDOMEN: No free air under the diaphragm. IMPRESSION: Persistent trace right sided pneumothorax. Bilateral patchy airspace opacities, slightly increased, compatible with multifocal pneumonia. Signed by: Dr. Maria E Eaton MD on 12/26/2019 6:28 AM
[2019-12-26] MEDS: ENOXAPARIN SOD INJ 40 MG/0.4 ML SYR SC SCH ×2 (08:48→21:12)
[2019-12-26] MEDS: FLUTICASONE PROPIONATE NASAL SPRAY NS SCH ×2 (08:48→16:08)
[2019-12-26] MEDS: PANTOPRAZOLE 40 MG 10ML VIAL IV SCH (08:48)
[2019-12-26 09:02] LABS: ABG PH 7.36 (7.35-7.45)
[2019-12-26 09:03] LABS: ABG HCO3 28 mmol/L (22-26); ABG PCO2 50 mmHg (35-45); ABG PO2 51 mmHg (80-105)
--- NOTE | 2019-12-26 09:38 | Progress Note ---
DATE: Pulmonary Critical Care Progress Note SUBJECTIVE: The patient has had some hypotension and required increased Levophed. She is now on 14 mcg. Her oxygenation was a little worse this morning and her FiO2 was increased to 75%. PHYSICAL EXAMINATION: VITAL SIGNS: The blood pressure is 109/52, heart rate is 85 and the respiratory rate is 26. She is on a PRVC mode of ventilation at a rate of 26 with a tidal volume of 350 and a PEEP of 14. Her FiO2 is set at 75%. She is on Levophed at 14 mcg as well as Versed at 8 and fentanyl. She has an NG tube in place. CARDIAC: Regular rate and rhythm with normal S1, S2. LUNGS: Auscultation of lungs reveals crackles at the bases. There is no wheezing. ABDOMEN: Soft and nontender. There is no rebound or guarding. EXTREMITIES: No leg edema or calf tenderness. There is no cyanosis or clubbing. SKIN: No rashes. NEUROLOGICAL: No focal abnormalities. LABORATORY DATA: The patient's ABG is 7.361, 49.4, 51, and 28. White blood cell count is 11.7, hemoglobin is 11.6, and the platelet count is 319. The BUN to creatinine ratio is normal. The other electrolytes are within normal limits and the albumin is 1.8. RADIOGRAPHIC DATA: Chest x-ray shows decreased size of pneumothorax. There are patchy bilateral infiltrates. IMPRESSION: 1. Acute respiratory failure. 2. Bilateral pneumonia with coronavirus disease-19. 3. Superimposed bacterial pneumonia. 4. Right-sided pneumothorax that is improving. 5. Asthma. 6. Acute kidney injury. 7. Anemia. PLAN: 1. Increase FiO2. 2. Albumin. 3. Continue chest tube to suction. 4. Continue enteral feedings. 5. Continue Versed and fentanyl. 6. The patient will be placed in the prone position today. 7. Wean Levophed as tolerated. 8. Continue Lovenox. Case discussed with nursing staff, Respiratory, Infectious Disease, Internal Medicine, and family. Greater than 35 minutes in direct critical care time. Patrick Wren MD [facility]/MODL /[id number]
[2019-12-26] MEDS: NOREPINEPHRINE INJ 4MG/4ML 8 MG in DEXTROSE 5% 250ML 242 ML IV SCH (11:36)
[2019-12-26] MEDS: ALBUMIN 25% 25GM 100ML 0.25 GM/ML BTL IV SCH ×2 (13:02→17:08)
--- NOTE | 2019-12-26 15:09 | Progress Note ---
DATE: Nephrology Progress Note SUBJECTIVE: The patient is doing at baseline with no changes. PHYSICAL EXAMINATION: VITAL SIGNS: Temperature 98.6, pulse 69, respiratory rate is 26, blood pressure 120/57, and pulse ox 90% on mechanical ventilator. GENERAL: Intubated and sedated. PULMONARY: Intubated and sedated. CARDIOVASCULAR: Positive S1 and S2. No murmurs, rubs, or gallops appreciated. ABDOMEN: Soft, nondistended, and nontender to palpation. Bowel sounds present. MUSCULOSKELETAL: Unable to assess. NEUROLOGIC: Unable to assess. SKIN: Intact. Warm to touch. Good cap refill. PSYCHIATRIC: Intubated and sedated. LABORATORY DATA: CBC reviewed today. Chemistry reviewed today with renal functions stable. MICROBIOLOGY: Blood cultures no growth. IMAGING STUDIES: Chest x-ray, patchy bilateral airspace opacity, compatible with multifocal pneumonia. There is a persistent trace right-sided pneumothorax. IMPRESSION: 1. Acute respiratory failure secondary to COVID-19 pneumonia. 2. Acute kidney injury secondary to blood pressure fluctuation, now improved. 3. Right-sided pneumothorax with a chest tube. PLAN: At this time from a renal standpoint, the patient is doing well. Labs and electrolytes are stable. Good urine output. Monitor closely. Get a.m. labs. MD TEJAS Guerrero/LIANEL /[id number]
--- NOTE | 2019-12-26 16:58 | NUR ---
VITAL SIGNS: The blood pressure is 109/52, heart rate is 85 and the respiratory rate is 26. She is on a PRVC mode of ventilation at a rate of 26 with a tidal volume of 350 and a PEEP of 14. Her FiO2 is set at 75%. She is on Levophed at 14 mcg as well as Versed at 8 and fentanyl. She has an NG tube in place. CARDIAC: Regular rate and rhythm with normal S1, S2. LUNGS: Auscultation of lungs reveals crackles at the bases. There is no wheezing. ABDOMEN: Soft and nontender. There is no rebound or guarding. EXTREMITIES: No leg edema or calf tenderness. There is no cyanosis or clubbing. SKIN: No rashes. NEUROLOGICAL: No focal abnormalities. LABORATORY DATA: The patient's ABG is 7.361, 49.4, 51, and 28. White blood cell count is 11.7, hemoglobin is 11.6, and the platelet count is 319. The BUN to creatinine ratio is normal. The other electrolytes are within normal limits and the albumin is 1.8. RADIOGRAPHIC DATA: Chest x-ray shows decreased size of pneumothorax. There are patchy bilateral infiltrates. [id number]
[2019-12-27] VITALS (27 sets, daily range): BP systolic 54–161; BP diastolic 42–86
[2019-12-27] MEDS: MIDAZOLAM HCL 5MG/ML 10ML VIAL 100 ML IV PRN ×3 (02:20→20:35)
[2019-12-27 03:29] LABS: BASOPHILS # (AUTO) 0.1 (0.0-0.1); BASOPHILS % 0.5 % (0.0-1.0); EOSINOPHILS # (AUTO) 0.4 (0.0-0.4); EOSINOPHILS % 3.5 % (0.0-6.0); HEMATOCRIT 36.8 % (34.2-44.1); HEMOGLOBIN 11.5 g/dL (12.0-16.0); LYMPHOCYTES # (AUTO) 1.5 (1.0-3.2); LYMPHOCYTES % 13.9 % (18.0-39.1); MEAN CORPUSCULAR HEMOGLOBIN 29.4 pg (28-32); MEAN CORPUSCULAR HGB CONC 31.3 g/dL (31-35); MEAN CORPUSCULAR VOLUME 94.1 fL (81-99); MONOCYTES # (AUTO) 0.9 (0.2-0.8); MONOCYTES % 8.2 % (4.4-11.3); NEUTROPHILS # (AUTO) 7.5 (2.1-6.9); NEUTROPHILS % 71.1 % (38.7-80.0); PLATELET COUNT 277 x10e3/uL (140-360); RED BLOOD COUNT 3.91 x10e6/uL (3.6-5.1); RED CELL DISTRIBUTION WIDTH 15.6 % (11.7-14.4)
[2019-12-27 03:49] LABS: ALANINE AMINOTRANSFERASE 16 IU/L (0-55); ALBUMIN 2.7 g/dL (3.5-5.0); ALBUMIN/GLOBULIN RATIO 0.9 (0.8-2.0); ALKALINE PHOSPHATASE 92 IU/L (40-150); ANION GAP 12.1 mmol/L (8-16); BLOOD UREA NITROGEN 10 mg/dL (7-26); BUN/CREATININE RATIO 13 (6-25); CALCIUM 8.2 mg/dL (8.4-10.2); CARBON DIOXIDE 26 mmol/L (22-29); CHLORIDE 106 mmol/L (98-107); CREATININE, SERUM 0.77 mg/dL (0.57-1.11); EST GLOMERULAR FILTRATION RATE > 60 ML/MIN (60-); GLUCOSE 101 mg/dL (74-118); POTASSIUM 4.1 mmol/L (3.5-5.1); SODIUM 140 mmol/L (136-145)
[2019-12-27] MEDS: LEVOTHYROXINE SODIUM 50 MCG TAB PO SCH (05:16)
[2019-12-27] MEDS: NOREPINEPHRINE INJ 4MG/4ML 8 MG in DEXTROSE 5% 250ML 242 ML IV SCH ×4 (07:42→22:45)
[2019-12-27] MEDS ORDERED: NOREPINEPHRINE 8 MG/D5W 250 ML 250 ML ONE (07:49)
[2019-12-27] MEDS: FLUTICASONE PROPIONATE NASAL SPRAY NS SCH ×2 (09:00→09:56)
[2019-12-27] MEDS: PANTOPRAZOLE 40 MG 10ML VIAL IV SCH (09:34)
[2019-12-27] MEDS: ENOXAPARIN SOD INJ 40 MG/0.4 ML SYR SC SCH (09:34)
--- NOTE | 2019-12-27 11:19 | Diagnostic Imaging Report ---
EXAMINATION: CHEST SINGLE (PORTABLE) INDICATION: Respiratory failure. COMPARISON: Chest radiograph 12/26/2019. FINDINGS: AP view TUBES and LINES: Endotracheal tube, enteric tube, an right arm PICC in unchanged position. Interval slight advancement of right apical chest tube. LUNGS/PLEURA: Bilateral multifocal airspace opacities, slightly increased. There is persistent obscuration of the left hemidiaphragm which could be due to effusion and or atelectasis. No visible right-sided pneumothorax. HEART AND MEDIASTINUM: The cardiomediastinal silhouette is partially obscured and mildly enlarged. There are atherosclerotic calcifications within the aorta. BONES AND SOFT TISSUES: No acute osseous lesion. Soft tissues are unremarkable. UPPER ABDOMEN: No free air under the diaphragm. IMPRESSION: Lines and tubes as above. Interval slight advancement of right apical chest tube. No visible right-sided pneumothorax. Bilateral patchy airspace opacities, slightly increased, compatible with multifocal pneumonia. Signed by: Dr. Maria E Eaton MD on 12/27/2019 11:16 AM
[2019-12-27] MEDS: FENTANYL 2000MCG/NS 250 250 ML IV PRN ×2 (11:44→20:34)
[2019-12-27] MEDS ORDERED: ATROPINE SULFATE 0.1 MG/ML 10ML SYR ONE (13:00)
[2019-12-27] MEDS ORDERED: SODIUM CHLORIDE 0.9% 500ML 500 ML ONE (13:55)
--- NOTE | 2019-12-27 14:34 | Operative Report ---
DATE OF PROCEDURE: SURGEON: Patrick Wren MD PROCEDURE: Endotracheal intubation with GlideScope. PREOPERATIVE DIAGNOSIS: Respiratory failure. POSTOPERATIVE DIAGNOSIS: Respiratory failure. CONSENT: Consent was deemed emergent due to respiratory instability. MEDICATIONS: The patient was on Versed and fentanyl at the time of the procedure. DESCRIPTION OF PROCEDURE: The patient had air leak with a ruptured balloon. A bougie was placed to her endotracheal tube. The endotracheal tube was removed. An 8.0 endotracheal tube was placed over the bougie by the Seldinger technique. There was no CO2 return. The patient vomited tube feedings. Tube was removed because it was in the stomach. So now also then suction. GlideScope was used with a 3-0 Mac blade to visualize glottis. The glottis was visualized and an 8.0 endotracheal tube was passed through the glottis on the first attempt. There was good CO2 return with breath sounds bilaterally. COMPLICATIONS: Aspiration. ESTIMATED BLOOD LOSS: None. Patrick Wren MD [facility]/MODL /[id number]
--- NOTE | 2019-12-27 15:09 | Operative Report ---
DATE OF PROCEDURE: SURGEON: Patrick Wren MD PROCEDURE: Chest tube placement. PREOPERATIVE DIAGNOSIS: Tension pneumothorax. POSTOPERATIVE DIAGNOSIS: Tension pneumothorax. CONSENT: Consent was implied due to hemodynamic instability. DESCRIPTION OF PROCEDURE: The patient was placed in a supine position. The left hemithorax was prepped sterilely with chlorhexidine. A 3 cm incision was made at the mid axillary line at the 6th intercostal space. Hemostat was used to dissect down to the pleura. Arely forceps were then used to dissect through the parietal pleura and into the pleural space. A 20-Persian chest tube was then passed into the pleural space. There was good respiratory variation and air leak. COMPLICATIONS: None. ESTIMATED BLOOD LOSS: None. Patrick Wren MD H/MODL /[id number]
--- NOTE | 2019-12-27 15:30 | Diagnostic Imaging Report ---
EXAMINATION: CHEST SINGLE (PORTABLE) INDICATION: Respiratory failure. COMPARISON: Chest radiograph 12/27/2019. FINDINGS: AP view TUBES and LINES: Interval placement of a left apical chest tube and a left apical pigtail chest tube. The pigtail chest tube appears kinked. ET tube has been advanced and terminates 1 cm above the bethanie. Enteric tube, an right arm PICC in unchanged position. Unchanged right apical chest tube. LUNGS/PLEURA: Bilateral multifocal airspace opacities, slightly increased. There is persistent obscuration of the left hemidiaphragm which could be due to effusion and or atelectasis. No visible right-sided pneumothorax. Interval development of a moderate left basilar pneumothorax. HEART AND MEDIASTINUM: The cardiomediastinal silhouette is partially obscured and mildly enlarged. There are atherosclerotic calcifications within the aorta. No mediastinal shift. BONES AND SOFT TISSUES: No acute osseous lesion. Soft tissues are unremarkable. UPPER ABDOMEN: No free air under the diaphragm. IMPRESSION: Interval development of moderate left basilar pneumothorax. No mediastinal shift. Interval placement of left apical chest tube and a pigtail chest tube. The pigtail chest tube appears kinked. No visible right pneumothorax. The above findings were discussed with LANDY Terrazas, who indicated the findings were understood, on 12/27/2019 at 325 PM. ET tube terminates 1 cm above the bethanie. Suggest retraction. Persistent findings of multifocal pneumonia. Signed by: Dr. Maria E Eaton MD on 12/27/2019 3:27 PM
--- NOTE | 2019-12-27 15:39 | Progress Note ---
DATE: 12/27/2019 Renal Progress Note SUBJECTIVE: The patient is still intubated and sedated. Has chest tube. No overnight events. OBJECTIVE: VITAL SIGNS: Still intubated and sedated. Temperature 98.5, pulse 75, respiratory rate is 26, blood pressure 104/50, and pulse ox 96% on room air . GENERAL: Intubated and sedated. PULMONARY: Intubated and sedated. CARDIOVASCULAR: Positive S1 and S2. No murmurs, rubs, or gallops. GI: Abdomen is soft, nondistended, nontender palpation. Bowel sounds present. MUSCULOSKELETAL: Unable to assess. NEUROLOGIC: Unable to assess. SKIN: Intact, warm to touch. PSYCHIATRIC: Unable to assess. LABORATORY DATA: CBC reviewed stable. Chemistry reviewed, stable. Microbiology none. IMAGING STUDIES: Chest x-ray shows no change. IMPRESSION: 1. Acute respiratory failure secondary to COVID-19 pneumonia. 2. Acute kidney injury. Blood pressure fluctuation, now improved. 3. Right-sided pneumothorax with the chest tube. PLAN: At this time from a renal standpoint, the patient is doing well with no other issues. She is severely ill. She is in critical condition. From a renal standpoint, her urine output is good. Electrolytes are stable. Continue to monitor closely. MD TEJAS Guerrero/MODL /[id number]
[2019-12-27 16:30] LABS: ABG HCO3 29 mmol/L (22-26); ABG PCO2 60 mmHg (35-45); ABG PH 7.28 (7.35-7.45); ABG PO2 49 mmHg (80-105); ABG TCO2 30
[2019-12-27] MEDS ORDERED: SODIUM CHLORIDE 0.9% 1000ML 500 ML IV ONE (17:15)
[2019-12-27] MEDS ORDERED: SODIUM CHLORIDE 0.9% 1000ML 1,000 ML ONE (17:19)
[2019-12-27] MEDS ORDERED: SODIUM CHLORIDE 0.9% IV ONE (17:30)
[2019-12-27] MEDS: VANCOMYCIN 1GM/NS 250 ML 250 ML IV SCH (17:47)
[2019-12-27] MEDS: MEROPENEM 1GM 100 ML IV SCH (17:47)
--- NOTE | 2019-12-27 18:05 | Progress Note ---
DATE: SUBJECTIVE: Ms. Cook aspirated today. She got worse. Discussed with medical team. I took her back on antibiotic, back on vancomycin and meropenem. The patient is currently intubated and sedated. OBJECTIVE: VITAL SIGNS: Her vitals otherwise, stable. GENERAL: She is intubated. HEENT: She is not icteric. NECK: Supple. CHEST: Crackles bilateral. HEART: S1, S2. ABDOMEN: Soft. IMPRESSION: 1. Respiratory failure, aspiration pneumonia, and prognosis is extremely poor. 2. Consider DNR and comfort care. Discussed with the medical team. 3. Pneumothorax on the right side. 4. Agree with antibiotic as ordered. We will follow levels. MD ANGEL Zamorano/MARTITA /[id number]
--- NOTE | 2019-12-27 18:34 | Diagnostic Imaging Report ---
EXAMINATION: CHEST SINGLE (PORTABLE) INDICATION: Respiratory failure. COMPARISON: Chest radiograph 12-27-2019. FINDINGS: AP view TUBES and LINES: Interval retraction of endotracheal tube, which now terminates 4.7 cm above the bethanie. Interval removal of left apical pigtail chest tube. Additional lines and tubes including right arm PICC, bilateral chest tubes, and enteric tube appear unchanged. LUNGS/PLEURA: Persistent bilateral lower lung zone predominant airspace opacities. Interval near resolution of left-sided pneumothorax with trace residual pneumothorax. No visible right-sided pneumothorax. HEART AND MEDIASTINUM: The cardiomediastinal silhouette is partially obscured and mildly enlarged. There are atherosclerotic calcifications within the aorta. No mediastinal shift. BONES AND SOFT TISSUES: No acute osseous lesion. Soft tissues are unremarkable. UPPER ABDOMEN: No free air under the diaphragm. IMPRESSION: Interval retraction of endotracheal tube in satisfactory position. Other lines and tubes as above. Interval near resolution of left-sided pneumothorax with trace residual pneumothorax. Persistent findings of multifocal pneumonia. Signed by: Dr. Maria E Eaton MD on 12/27/2019 6:31 PM
--- NOTE | 2019-12-27 18:42 | NUR ---
pt almost code status during ett change. ett had leak. pt unable to hold vent pressure, sats 80s, hypotension. pt was maxed on levophed. new pneumo on left side, chest tube placed. new iv drips added to sustain bp. pt holding sats with vent in 60s. bp ranging 100/60 or below with 3 pressors. family was updated by dr yates. permission obtained for family to visit at bedside.
[2019-12-27] MEDS: VASOPRESSIN 60 UNIT in DEXTROSE 5% 100ML 57 ML IV PRN ×2 (18:57→20:35)
[2019-12-27] MEDS: PHENYLEPHRINE 10MG/ML VIAL 40 MG in DEXTROSE 5% 250ML 250 ML IV PRN ×2 (18:58→20:38)
[2019-12-28] VITALS (29 sets, daily range): BP systolic 33–91; BP diastolic 13–69
[2019-12-28] MEDS: MEROPENEM 1GM 100 ML IV SCH ×4 (00:31→21:48)
[2019-12-28] MEDS ORDERED: NOREPINEPHRINE 8 MG/D5W 250 ML 250 ML ONE (02:35)
[2019-12-28] MEDS: NOREPINEPHRINE INJ 4MG/4ML 8 MG in DEXTROSE 5% 250ML 242 ML IV SCH ×5 (02:37→22:11)
[2019-12-28] MEDS: VANCOMYCIN 1GM/NS 250 ML 250 ML IV SCH ×2 (02:38→16:23)
[2019-12-28] MEDS: MIDAZOLAM HCL 5MG/ML 10ML VIAL 100 ML IV PRN ×2 (02:40→18:38)
[2019-12-28 03:49] LABS: BASOPHILS # (AUTO) 0.1 (0.0-0.1); BASOPHILS % 0.5 % (0.0-1.0); EOSINOPHILS # (AUTO) 0.3 (0.0-0.4); EOSINOPHILS % 1.3 % (0.0-6.0); HEMATOCRIT 43.4 % (34.2-44.1); HEMOGLOBIN 12.4 g/dL (12.0-16.0); LYMPHOCYTES # (AUTO) 1.8 (1.0-3.2); MEAN CORPUSCULAR HEMOGLOBIN 29.2 pg (28-32); MEAN CORPUSCULAR HGB CONC 28.6 g/dL (31-35); MEAN CORPUSCULAR VOLUME 102.4 fL (81-99); MONOCYTES # (AUTO) 1.1 (0.2-0.8); MONOCYTES % 5.7 % (4.4-11.3); NEUTROPHILS # (AUTO) 15.7 (2.1-6.9); NEUTROPHILS % 79.9 % (38.7-80.0); PLATELET COUNT 369 x10e3/uL (140-360); RED BLOOD COUNT 4.24 x10e6/uL (3.6-5.1); RED CELL DISTRIBUTION WIDTH 16.3 % (11.7-14.4)
[2019-12-28 04:02] LABS: ALBUMIN 1.9 g/dL (3.5-5.0); ALBUMIN/GLOBULIN RATIO 0.6 (0.8-2.0); ANION GAP 18.9 mmol/L (8-16); CALCIUM 7.5 mg/dL (8.4-10.2); CREATININE, SERUM 1.61 mg/dL (0.57-1.11); POTASSIUM 4.9 mmol/L (3.5-5.1)
[2019-12-28 04:23] LABS: MAGNESIUM 1.7 MG/DL (1.3-2.1)
--- NOTE | 2019-12-28 04:41 | Progress Note ---
DATE: 12/26/2019 SUBJECTIVE: Ms. Elaine remains in intensive care unit. This is day #22 of her hospitalization. The patient intubated and sedated. PHYSICAL EXAMINATION: VITALS: Stable, currently afebrile. HEENT: She is not icteric. NECK: Supple. CHEST: Few crackles. HEART: S1 and S2. ABDOMEN: Soft. The patient had a low blood pressure yesterday, now it is better. She was hypoxemic earlier today, but now is stable. IMPRESSION: Respiratory failure, aspiration pneumonia, COVID-19, right-sided pneumothorax, acute on chronic kidney disease, malnutrition. PLAN: Continue with Lovenox. She has currently finished her antibiotic treatment. Continue supportive care. Recheck CBC. Recheck Chem panel. We will discuss with the medical team. MD ANGEL Zamorano/MARTITA /[id number]
[2019-12-28] MEDS: LEVOTHYROXINE SODIUM 50 MCG TAB PO SCH (04:49)
[2019-12-28] MEDS: PHENYLEPHRINE 10MG/ML VIAL 40 MG in DEXTROSE 5% 250ML 250 ML IV PRN ×3 (07:53→22:12)
[2019-12-28 07:58] LABS: BAND NEUTROPHILS % (MANUAL) 5 %; EOSINOPHILS % (MANUAL) 1 % (0-7); LYMPHOCYTES % (MANUAL) 4 % (19-48); MONOCYTES % (MANUAL) 3 % (3.4-9.0); NEUTROPHILS % (MANUAL) 87 % (40-74)
[2019-12-28 07:59] LABS: HYPOCHROMASIA SLIGHT; RBC MORPHOLOGY COMMENT ABNORMAL
[2019-12-28] MEDS: FLUTICASONE PROPIONATE NASAL SPRAY NS SCH ×2 (09:00→16:23)
[2019-12-28] MEDS: PANTOPRAZOLE 40 MG 10ML VIAL IV SCH (10:09)
--- NOTE | 2019-12-28 13:32 | Progress Note ---
DATE: SUBJECTIVE: The patient has remained overnight with very poor oxygen saturations despite being on 100% oxygen and PEEP at 16. She is requiring pressors. She is on both Levophed and vasopressin. She has no urine output this morning. PHYSICAL EXAMINATION: VITAL SIGNS: The blood pressure is 61/40 despite being on pressors. The pulse is 71. The heart rate is 102. HEENT: No facial swelling or erythema. The oropharynx is normal. The patient is an oral endotracheal tube in place. There is a right-sided chest tube with no air leak. There is a left-sided chest tube with no air leak. CARDIAC: Regular rate and rhythm with normal S1, S2. LUNGS: Auscultation of lungs reveals crackles at the bases. There is no wheezing. ABDOMEN: Soft, nontender. There is no rebound or guarding. EXTREMITIES: No leg edema or calf tenderness. RADIOGRAPHIC DATA: The patient's endotracheal tube is in good position. The chest tubes are in good position. There is no residual pneumothorax. The patient has bilateral infiltrates. LABORATORY DATA: White blood cell count is 19.6 and hemoglobin is 12.4. The platelet count is 369. The BUN to creatinine ratio is 11 to 0.16. IMPRESSION: 1. Respiratory failure. 2. Acute renal failure. 3. Bacterial pneumonia with severe sepsis. 4. Anemia. PLAN: 1. Case discussed with the family. They understand the prognosis is very poor and opted for DNR status. 2. The family came to visit the patient last night. 3. Continue current antibiotics. 4. Continue pressors. 5. Continue mechanical ventilation. Patrick Wren MD [facility]/MODL /[id number]
--- NOTE | 2019-12-28 15:43 | Progress Note ---
DATE: SUBJECTIVE: Ms. Cook is doing about the same. She got a bit worse. Discussed with medical team. Discussed with family. The patient's family is aware that she is not doing well. We made her DNR. The patient remains on the ventilator, intubated, sedated. PHYSICAL EXAMINATION: GENERAL: Intubated and sedated. VITAL SIGNS: Stable, currently afebrile. HEENT: Normocephalic. NECK: Supple. CHEST: Few crackles bilateral. COR: S1, S2. No murmurs. ABDOMEN: Soft. IMPRESSION: 1. Respiratory failure, currently DNR. Continue the same , agree with stopping life support. 2. Coronavirus disease-19. 3. Respiratory failure. 4. Recurrent aspiration. 5. Poor prognosis. We will follow. MD ANGEL Zamorano/MODL /[id number]
[2019-12-28] MEDS ORDERED: DEXTROSE 5% 250ML 250 ML IV ONE (21:13)
[2019-12-28] MEDS ORDERED: PHENYLEPHRINE HCL 1% 10 MG/ML VIAL ONE (21:15)
--- NOTE | 2019-12-29 01:03 | NUR ---
Have had difficulties obtaining a blood pressure and Sp02 reading on pt since shift change, pt is maxed on vasopressors-Levophed, phenylephrine, and vasopressin. BP continues to trend down. PRVC vent settings: 100%, 16, RR26, 350. At 23:39, pt had an episode of bradycardia then went asystole. FURNITURE STAINER Toribio huerta at bedside at [facility]. ER Dr. Peralta called TO @ 23:40. Notified [facility], family (Leon, son), extension service specialist in charge/house sup. Will notify rest of team in AM. Family has determined they would like their loved one, Ms. Cook's remains to be released to [facility] located at [address], [place]. Spoke with home and their ETA is approximately one hour. Will notify family when they leave facility. Post-mortem care complete. Jewelry and other belongings bagged and family welcome to scrap picker from hospital in AM as discussed.
--- NOTE | 2019-12-29 03:51 | Progress Note ---
DATE: 12/25/2019 CONSULTING PHYSICIANS: 1. Dr. Swapna Carver with Infectious Disease. 2. Dr. Patrick Wren with Pulmonology Critical Care Medicine. 3. Dr. Robson Wren with Cardoilogy. 4. Dr. Sis Reynoso with Nephrology. SUBJECTIVE: The patient remains intubated and sedated in ICU bed 189. This is day #21 of hospitalization. OBJECTIVE: VITAL SIGNS: Temperature 98.4, heart rate 78, blood pressure 120/45, respirations 26, and oxygen saturation 98%. GENERAL: Supine. LUNGS: Diminished. Current vent settings, PRVC 26, FiO2 of 70%, tidal volume 360, PEEP of 14. HEENT: Sclerae anicteric. Left naris NG tube with Glucerna tube feeds. NECK: Supple. No JVD. CARDIOVASCULAR: Regular rate and rhythm. No murmur. Right upper extremity PICC line with Levophed and Protonix drips, shows a right radial arterial line with good waveform, shows right chest tube without air leak. ABDOMEN: Bowel sounds positive. No grimacing with gentle palpation. GENITOURINARY: Neumann catheter. EXTREMITIES: No pitting edema. No clubbing, cyanosis, or obvious sign of DVT. She has bilateral soft restraints. NEUROLOGICAL: Sedated with fentanyl and Versed drips. LABORATORY DATA: WBCs 10.81, hemoglobin 11.1, hematocrit 35.8, platelets 277. ABG this morning, pH 7.39, pCO2 43, PO2 55, HC03 27, and oxygen saturation 88%, base excess of 1.0, FiO2 of 65%. Sodium 140, potassium 3.7, chloride 108, CO2 of 26, anion gap 9.7, BUN 18, creatinine 0.81, estimated GFR greater than 60. Glucose 128, calcium 7.9, total bilirubin 0.3, AST 15, ALT 13, alkaline phosphatase 76, total protein 5.3, albumin 1.8. Fingerstick blood glucose levels 88, 98. Chest x-ray done today shows decreased small right-sided pneumothorax, bilateral patchy airspace opacities compatible with multifocal pneumonia. ASSESSMENT AND PLAN: 1. Acute respiratory failure due to COVID-19 status post re-intubation on 12/19. Wean ventilator settings as tolerated per Pulmonology. 2. Superimposed bilateral bacterial pneumonia on top of COVID-19. Merrem as per Infectious Disease. Maintained ventilatory support. 3. Bilateral community-acquired viral pneumonia with COVID-19, per POA. Continue Lovenox, zinc sulfate, vitamin C, and vitamin D. 4. Right pneumothorax, status post chest tube placement. Cardiology and Pulmonology/Critical Care Medicine following. Monitor chest x-ray results. 5. Asthma, ventilator weaning as per Pulmonology. 6. Acute kidney injury, resolved. Creatinine 0.81. 7. Anemia. Hemoglobin 11.1. Monitor. 8. Prophylaxis. Lovenox and Protonix. 9. Billing code 18179. Time spent 35 minutes. Dictated by Toribio Hutchins NP MD [facility]/MODL /[id number]
--- NOTE | 2019-12-29 04:06 | Progress Note ---
DATE: 12/26/2019 SUBJECTIVE: The patient remains intubated and sedated in ICU bed 189, day #22 of hospitalization. She has had worsened hypotension requiring increase in Levophed and worsened hypoxia requiring an increase in her FiO2. OBJECTIVE: VITAL SIGNS: Temperature 98.0, heart rate 69, blood pressure 134/52, respirations 26, oxygen saturation 97%. GENERAL: At the time of encounter at 2010 hours, the patient in prone position. LUNGS: With bibasilar crackles. SpO2 not rating accurately. Ventilator settings, PRVC, rate of 26, FiO2 of 80%, tidal volume 350, PEEP of 16, peak pressure 43, minute ventilation 9.1. HEENT: Sclerae anicteric. NECK: Supple. No JVD. CARDIOVASCULAR: Shows a right upper extremity arterial line. Right upper extremity PICC line with Levophed infusing at 14 mcg/hour. She has a right chest tube without air leak. ABDOMEN: Bowel sounds positive. Soft. Tube feeding, currently on hold. She has an NG tube. Neumann catheter with yellow urine. EXTREMITIES: Without pitting edema. No clubbing, cyanosis, or marked swelling. She has soft wrist restraints. NEUROLOGICAL: Sedated with fentanyl 200 mcg/hour and Versed 8 mg/hour. LABORATORY DATA: WBCs 11.69, hemoglobin 11.6, hematocrit 37.2, platelets 277. ABG; pH 7.36, pCO2 50, PO2 51, HC03 28, oxygen saturation 84%, base excess of 3, FiO2 65%. Sodium 144, potassium 3.9, chloride 109, CO2 of 26, BUN 13, creatinine 0.79, estimated GFR greater than 60, glucose 100, calcium 8.1, total bilirubin 0.3, AST 25, ALT 19, alkaline phosphatase 99, total protein 5.3, albumin 1.8. Chest x-ray today showed persistent trace right-sided pneumothorax, bilateral patchy airspace opacities, slightly increased compatible with multifocal pneumonia. ASSESSMENT AND PLAN: 1. Acute respiratory failure due to COVID-19, status post re-intubation on 12/19. Continue sedation, wean ventilator settings as tolerated per Pulmonology. Prone, the patient has tolerated. 2. Superimposed bilateral bacterial pneumonia on top of COVID-19. IV antibiotics per Infectious Disease. Maintain ventilatory support. 3. Bilateral community-acquired viral pneumonia with COVID-19, present on admission. Continue zinc sulfate, vitamin C, vitamin D, and Lovenox. 4. Improving right pneumothorax status post right chest tube placement. Continue chest tube to suction. Monitor chest x-rays. 5. Asthma. Wean ventilator as tolerated. 6. Sepsis due to COVID-19 WBCs 11.6. Appreciate Infectious Disease recommendations regarding antibiotics. Wean Levophed as tolerated. 7. Anemia. Hemoglobin 11.6. Monitor. 8. Gastroesophageal reflux disease/prophylaxis. Lovenox and Protonix. 9. Billing code [id number]. Time spent 35 minutes. Dictated by Toribio Hutchins NP MD KIERSTEN TaborP/MODL /[id number]
--- NOTE | 2019-12-29 05:10 | Progress Note ---
DATE: 12/27/2019 DATE OF SERVICE: December 27, 2019. CONSULTING PHYSICIANS: 1. Dr. Swapna Carver with Infectious Disease. 2. Dr. Patrick Wren with Pulmonology Critical Care Medicine. 3. Dr. Robson Wren with Cardiology. 4. Dr. Sis Reynoso with Nephrology. SUBJECTIVE: The left chest tube placed by Dr. Wren for tension pneumothorax today. She had an air leak of the ET tube with rupture balloon. Dr. Wren exchanged the ET tube; i.e., thus endotracheal intubation with GlideScope today, the patient is on 3 pressors, now blood pressure 54/45 with a MAP of 49 via arterial line and 86/70 with a MAP of 77 via noninvasive blood pressure cuff. OBJECTIVE: VITAL SIGNS: This morning, temperature 98.5, heart rate 75, blood pressure 104/50, respirations 26, oxygen saturation 96%. GENERAL: Ill in ICU bed 189. LUNGS: Bibasilar crackles. Ventilator settings, PRVC 26, FiO2 of 100%, tidal volume 350, PEEP of 16, peak pressure 52. HEENT: Sclerae anicteric. NECK: Supple. CARDIOVASCULAR: Regular rate and rhythm without murmur. Normal saline infusing at 100 mL an hour into her right upper extremity PICC line. She has a right radial arterial line. Levophed infusing at 35 mcg/minute, vasopressin at 0.07 units/minute, phenylephrine at 100 mcg/minute. She has bilateral both right and left chest tubes. ABDOMEN: Bowel sounds hypoactive. Left naris NG tube feedings off. Neumann catheter with yellow urine. EXTREMITIES: With no pitting edema. No clubbing, cyanosis, or marked swelling. NEUROLOGICAL: Sedated on fentanyl 100 mcg/hour and Versed at 4 mg an hour. LABORATORY DATA: WBC 10.54, hemoglobin 11.5, hematocrit 36.8, platelets 277. ABG; pH 7.28, pCO2 60, PO2 49, HC03 29, SaO2 78, base excess of 2, FiO2 of 100%. Sodium 140, potassium 4.1, chloride 106, CO2 of 26, BUN 10, creatinine 0.77, estimated GFR greater than 60, glucose 101, calcium 8.2, total bilirubin 0.4, AST 21, ALT 16, alkaline phosphatase 92, total bilirubin 5.8, albumin 2.7. Chest x-ray earlier this morning showed interval slight advancement of right apical chest tube. No visible right-sided pneumothorax, bilateral patchy airspace opacities, slightly increased compatible with multifocal pneumonia. ASSESSMENT AND PLAN: 1. Acute respiratory failure due to COVID-19, status post re-intubation on 12/19 and now ET tube exchange. Continued sedation, prone as tolerated. Wean ventilator settings as tolerated per Pulmonology. 2. Superimposed bilateral bacteria and pneumonia on top of COVID-19. Continue IV antibiotics as per Infectious Disease. Maintain ventilatory support. 3. Bilateral community-acquired viral pneumonia with a COVID-19 POA. Continue Lovenox, zinc sulfate, vitamin C, and vitamin D. 4. Improving right pneumothorax status post and new left pneumothorax, status post bilateral chest tube placements Pulmonology/Critical Care Medicine as well as Cardiology following. Continue chest tubes to suction. Monitor chest x-ray results. 5. Asthma, ventilator weaning as tolerated. 6. Sepsis due to COVID-19. WBC 10.5 today. Wean Levophed as tolerated. 7. Anemia. Hemoglobin 11.5, stable. 8. Gastroesophageal reflux disease/prophylaxis. Lovenox and Protonix. 9. Billing code [id number]. Time spent 35 minutes. Dictated by Toribio Hutchins NP MD KIERSTEN TaborP/MODL /[id number]
--- NOTE | 2019-12-29 07:31 | Discharge Summary ---
DATE OF SERVICE AND DATE OF : December 28, 2019. PRIMARY CARE PHYSICIAN: Bull Deleon MD CONSULTING PHYSICIANS: 1. Dr. Swapna Carver with Infectious Disease. 2. Dr. Patrick Wren with Pulmonology Critical Care Medicine. 3. Dr. Robson Wren with Cardiology. 4. Dr. Sis Reynoso with Nephrology. CHIEF COMPLAINT: Dyspnea. HISTORY OF PRESENT ILLNESS: The patient was a 64-year-old female admitted with worsening dyspnea. She was initially on non-rebreather, however, required intubation. She had a past medical history of asthma, hypothyroidism, and GERD. ADMITTING DIAGNOSES: 1. COVID-19 pneumonia with ARDS, status post intubation. 2. Hypothyroidism. 3. Transaminitis. 4. Morbid obesity. Date of admission to the hospital was December 03, 2019. On 12/04, the patient was in COVID ICU sedated on Levophed drip. WBCs at that time 7.7 with neutrophils 83.1%. She was on azithromycin, Rocephin, remdesivir, Decadron, vitamin C, zinc. AST 36, BUN 13, creatinine 0.89, GFR 60. On 12/05, the patient was on sedation with propofol drip, azithromycin, Rocephin, dexamethasone, remdesivir, Lovenox, vitamin C, and zinc were all continued. On December 06, she required FiO2 of 55%. Chest x-ray showed an increase in airspace disease in the right lung base. She was diagnosed as well with ARDS. Attempts were persistently made to wean her ventilator and Levophed drips. On 12/07, WBCs 12.5. On 12/08, she was placed on CPAP and extubated. On 12/08, aforementioned antibiotics were continued. She still required Levophed drip 3 mcg/minute on 12/08, receiving neb treatments. The patient stated that she was "tired." She still had a cough. Oxygen saturation 93% to 95% on Vapotherm. At that time, her Vapotherm settings were 20 L/minute, FiO2 of 60%. She had an NG tube with Glucerna infusing at 20 mL an hour for nutritional support. ABGs and chest x-rays were continued to be monitored. She had persistent left greater than right lower lung airspace opacities. Her Vapotherm was weaned off and she was placed on high-flow nasal cannula at 10 L/minute. She had a bedside swallow evaluation, and was tolerating thin liquids and ice chips. She was unable to the attempt other consistencies as she was less than 48 hours post extubation at that point. Hemoglobin A1c was 5.8%. Chest x-ray showed persistent bilateral multifocal patchy airspace opacities. She was stable from a cardiovascular standpoint as evidence by Cardiology notes. On 12/10, the patient did a sides shuffle with physical therapy. Her NG tube was removed. She remained on high-flow oxygen at 10 L/minute and it was weaned down to 8 L/minute. She passed a modified barium swallow. At this point, she was in [facility] bed 179. On 12/14, she was on 15 L/minute high-flow oxygen with oxygen saturation 88%. On 12/15, at 1:00 a.m. in the morning, she was on 15 L/minute high-flow oxygen with an oxygen saturation of 88% and a respiratory rate of 28, non-rebreather mask was added and then oxygen saturation at that point was 94%. She was left off the non-rebreather mask for 1 hour, then ABG was assessed. A sudden hypoxia was noted, whenever she was not wearing her oxygen. On 12/19, the patient was moved to the intensive care unit. She was requiring 40 L/minute and FiO2 of 100% on Vapotherm. There is a productive cough. The patient required re-intubation on 12/19 and had to be put on Versed, fentanyl, and Levophed drips. She was closely monitored on 12/22. She was on PRVC 26, FiO2 of 85%, tidal volumes 360, and PEEP of 16. She required a right chest tube placement due to pneumothorax. On 12/24, she was on PRVC 26, FiO2 70%, tidal volume 316, PEEP of 14. Chest x-ray at that time showed a decreased small right-sided pleural pneumothorax. On day #22, which was 12/25, she remained intubated, sedated, and was having worsening hypotension requiring an increase in Levophed and worsening hypoxia requiring an increase in her FiO2. Vent settings are PRVC 26, FiO2 of 80%, tidal volume 350, PEEP of 16, peak pressure 43, and minute ventilation 9.1. On 12/26, the patient developed tension pneumothorax and a left chest tube was placed by Dr. Wren. She had an air leak of the ET tube with rupture balloon. Dr. Wren exchanged the ET tube with a GlideScope. At that time, she was still on 3 pressors. Blood pressure was 54/45 with a MAP of 49 via the arterial line and 86/70 with a MAP of 77 via the noninvasive blood pressure cuff. Levophed was at 35 mcg/minute and vasopressin at 0.07 units/minute. She was also on phenylephrine at 100 mcg/minute, fentanyl drip at 100 mcg/hour, and Versed 4 mg/hour. On 12/27, LANDY Patel approached me and said that the patient was actively passing away asystole, which showed on the monitor . The nurse called Dr. Peralta to pronounce time of and the family's wishes for DNR were respected. Time of was 2340 hours on 12/28/2019. Just prior to her , she was supine, had bilateral chest tubes, on ventilator settings, PRVC 26, FiO2 of 100%, tidal volume 350, PEEP of 16, peak pressure 50, minute ventilation 9.3 with oxygen saturation of 80%. She still had her NG tube. She was on vasopressin 0.07 units/minute, Levophed 35 mcg/minute and phenylephrine 100 mcg/minute into her right upper extremity PICC line. She still had the right radial arterial line, Neumann catheter with abena urine. She was on fentanyl at 100 mcg/hour and Versed at 4 mg/hour. The family had already made her DNR, a do not resuscitate. The nurse notified the patient's family of the patient's passing and contacted home so that the body could be picked up. DIAGNOSES AT TIME OF : 1. Acute respiratory failure due to COVID-19, status post reintubation on 12/19 and status post ET tube exchange. 2. Superimposed bilateral bacterial pneumonia on top of COVID-19. 3. Bilateral community-acquired viral pneumonia with COVID-19, POA. 4. Improving right pneumothorax, also has a left pneumothorax, status post bilateral chest tube placement. 5. Acute kidney injury, resolved. 6. Sepsis due to COVID. 7. Asthma. 8. Anemia. 9. Gastroesophageal reflux disease. Dictated by Toribio W Cuong, MANAGER PET MD LAYA Tabor/MARTITA /[id number]
== END 2019-12-29 02:30 | disposition expired | DRG 853 ==
LOC: ER 17:03 → UNDOADMOB 17:08 → INTOOBSV 17:08 → ERHOLD 17:08 → COVIDICU 12-04 08:02 → ERHOLD 12-04 08:38 → COVIDICU 12-04 09:09 → ERHOLD 12-04 09:30 → COVIDICU 12-04 09:30 → IMCU 12-10 20:19 → ICU 12-20 01:08
PROVIDERS: ADMIT Internal Medicine; ATTEND Internal Medicine
PROC: 5A1955Z Respiratory Ventilation, Greater than 96 Consecutive Hours (ICD-10-PCS; principal; 2019-12-03)
PROC: 0BH18EZ Insertion of Endotracheal Airway into Trachea, Via Natural or Artificial Opening Endoscopic (ICD-10-PCS; 2019-12-03)
PROC: 02HV33Z Insertion of Infusion Device into Superior Vena Cava, Percutaneous Approach (ICD-10-PCS; 2019-12-03)
PROC: 0BW18FZ Revision of Tracheostomy Device in Trachea, Via Natural or Artificial Opening Endoscopic (ICD-10-PCS; 2019-12-20)
PROC: 0W9900Z Drainage of Right Pleural Cavity with Drainage Device, Open Approach (ICD-10-PCS; 2019-12-20)
PROC: 03HY32Z Insertion of Monitoring Device into Upper Artery, Percutaneous Approach (ICD-10-PCS; 2019-12-20)
PROC: 0W9B00Z Drainage of Left Pleural Cavity with Drainage Device, Open Approach (ICD-10-PCS; 2019-12-20)
DX: A41.9 Sepsis, unspecified organism (principal); U07.1 COVID-19; J12.9 Viral pneumonia, unspecified; G93.41 Metabolic encephalopathy; J15.9 Unspecified bacterial pneumonia; J69.0 Pneumonitis due to inhalation of food and vomit; I50.31 Acute diastolic (congestive) heart failure; N17.9 Acute kidney failure, unspecified; J45.901 Unspecified asthma with (acute) exacerbation; Z68.41 Body mass index [BMI] 40.0-44.9, adult; J93.9 Pneumothorax, unspecified; J95.09 Other tracheostomy complication; J93.82 Other air leak; Z99.11 Dependence on respirator [ventilator] status; B19.9 Unspecified viral hepatitis without hepatic coma; E86.0 Dehydration; R00.1 Bradycardia, unspecified; E66.01 Morbid (severe) obesity due to excess calories; E87.70 Fluid overload, unspecified; R13.10 Dysphagia, unspecified; E83.42 Hypomagnesemia; Z74.09 Other reduced mobility; D64.9 Anemia, unspecified; I11.0 Hypertensive heart disease with heart failure; F41.9 Anxiety disorder, unspecified; K21.9 Gastro-esophageal reflux disease without esophagitis; E03.9 Hypothyroidism, unspecified; E88.09 Other disorders of plasma-protein metabolism, not elsewhere classified
CPT/HCPCS: 31500; 31720; 36415; 36569; 36600; 71045; 71260; 74230; 80048; 80053; 80061; 80202; 82550; 82553; 82805; 82948; 83036; 83605; 83735; 83880; 84100; 84132; 84484; 85025; 85610; 85730; 87040; 93005; 93306; 94003; 94664; 97139; 99285; J0330; J0360; J0456; J0692; J0696; J1100; J1650; J1940; J2001; J2250; J2370; J2405; J2930; J3370; J7030; J7040; J7050; J7070; J7121; P9047; Q9967; U0002